=== PATIENT | female | born 1950 | race Caucasian/White ===

== ENCOUNTER 2023-11-23 22:30 | Emergency (ER) | payer MEDICARE, SELFPAY ==
--- NOTE | ~2023-11-23 | CT_ITS ---
EXAMINATION: CT cervical spine wo con DATE: 11/24/2023 00:02 INDICATION: Head injury. TECHNIQUE: Computed tomography (CT) of the cervical spine was performed without intravenous contrast. Automated exposure control and iterative reconstruction technique were employed. The dose-length pro duct was 484.08 mGy-cm. COMPARISON: None FINDINGS: There is 6 degrees dextrocurvature of cervical spine. Vertebral body heights are normal. Th ere is mildly decreased disc height at C6-C7. The following disc levels are specifically discussed: C2-C3: There is ankylosis of the uncovertebral joints without hypertrophy. There is ankylosis of the facet joints with mild left hypertrophy. There is mild left neural foraminal stenosis. There is no ce ntral canal stenosis. C3-C4: There is mild bilateral uncovertebral joint osteoarthritis. There is severe bilateral facet kamala int osteoarthritis. There is mild bilateral neural foraminal stenosis. There is no central canal sten osis. C4-C5: There is mild right and moderate left uncovertebral joint osteoarthritis. There is severe bila teral facet joint osteoarthritis. There is mild left neural foraminal stenosis. There is no central c anal stenosis. C5-C6: There is no uncovertebral joint osteoarthritis. There is severe bilateral facet joint osteoart hritis. There is mild bilateral neural foraminal stenosis. There is no central canal stenosis. C6-C7: There is moderate bilateral uncovertebral joint osteoarthritis. There is severe bilateral face t joint osteoarthritis. There is no neural foraminal stenosis. There is mild central canal stenosis. C7-T1: There is no uncovertebral joint osteoarthritis. There is mild right and severe left facet join t osteoarthritis. There is mild left neural foraminal stenosis. There is no central canal stenosis. IMPRESSION: 1. No fracture. 2. Mild cervical spondylosis. Reviewed, dictated and finalized at location E.
--- NOTE | ~2023-11-23 | CT_ITS ---
EXAMINATION: CT brain wo con DATE: 11/24/2023 00:00 INDICATION: Head injury. TECHNIQUE: Computed tomography (CT) of the head was performed without intravenous contrast. The mA wa s adjusted according to patient size. Iterative reconstruction technique was employed. The dose-lengt h product was 605.33 mGy-cm. COMPARISON: None FINDINGS: There is no intracranial hemorrhage, acute infarction, or abnormal intracranial mass lesion . The ventricles are normal in size. There are likely changes of ocular lens replacement surgeries. T here is mild mucosal thickening in the paranasal sinuses. The mastoid air cells are normal. IMPRESSION: 1. Normal brain. Reviewed, dictated and finalized at location E. IMPRESSION: 1. Normal brain.
[2023-11-23 22:31] VITALS: BP 183/103; PULSE 69; RESP 18; TEMP 36.6; O2SAT 99
--- NOTE | 2023-11-23 23:23 | ED.FALL ---
HPI - Fall General Chief Complaint: Fall Stated Complaint: fall, head trauma Time Seen by Provider: 11/23/23 23:04 Source: patient Mode of arrival: ambulatory Limitations: no limitations History of Present Illness HPI Narrative: Patient is a 73-year-old female who presents the ED with report of a fall with head injury. Patient reports she went to sit down on a couch and tripped and fell, falling backwards and hitting her head against a door. Denied LOC. She did sustain a contusion to her left posterior scalp. C/o left sided headache. She began having some nausea, which prompted her presentation. Denies vomiting. Denies dizziness, lightheadedness, vision changes. Denies neck or back pain. She is not on any blood thinners. Related Data Allergies Allergy/AdvReac Type Severity Reaction Status Date / Time Penicillins Allergy Unknown Verified 11/23/23 22:37 Review of Systems Review of Systems: CONSTITUTIONAL: Denies fever, chills, or sweats. CARDIOVASCULAR: Denies chest pain. RESPIRATORY: Denies dyspnea. GASTROINTESTINAL: See HPI. MUSCULOSKELETAL: Denies back pain, extremity pain, myalgia. NEUROLOGIC: See HPI. All systems reviewed & are unremarkable except as noted in HPI and below Exam Narrative: GENERAL: Well appearing, obese with BMI of 34.9, non-toxic, in no acute distress. HEAD: Normocephalic, contusion to left posterior scalp, mildly tender. No wounds or lacerations. EYES: PERRL/EOMI, conjunctiva clear. No nystagmus or pain with EOM. No raccoon eyes. ENT: TMs clear bilaterally. No hemotympanum. No Wayne sign. NECK: No midline spinal tenderness RESPIRATORY: Airway patent, respirations nonlabored. Clear to auscultation bilaterally, no rales, rhonchi, wheezing. CARDIOVASCULAR: Regular rate and rhythm without murmurs, rubs, or gallops. MUSCULOSKELETAL: Moves all extremities. No gross deformities. No midline thoracic or lumbar spinal tenderness. SKIN: Warm, dry, normal color. NEURO: A&O X3. Speech clear. Cranial nerves II-XII grossly intact. Steady gait. No ataxic movements. No focal deficits. PSYCHIATRIC: Appropriate mood and affect. Normal interaction. Course Vital Signs Vital signs: Vital Signs Temperature 97.9 F 11/23/23 22:31 Pulse Rate 69 11/23/23 22:31 Respiratory Rate 18 11/23/23 22:31 Blood Pressure 183/103 H 11/23/23 22:31 Pulse Oximetry 99 11/23/23 22:31 Oxygen Delivery Room Air 11/23/23 22:31 Temperature 97.9 F 11/23/23 22:31 Pulse Rate 78 11/24/23 00:55 Respiratory Rate 16 11/24/23 00:55 Blood Pressure 176/85 H 11/24/23 00:55 Pulse Oximetry 98 11/24/23 00:55 Oxygen Delivery Room Air 11/23/23 22:31 MDM - Fall MDM Narrative Medical decision making narrative: Patient presented to ED status post ground level fall, head injury, no LOC. No blood thinners. Vital stable. Patient neurologically intact. No other injuries or areas of pain. Patient did not want anything for pain or nausea in the ED. CT brain and cervical spine obtained and negative for acute traumatic findings. Patient has remained stable throughout ED stay. Remains neurologically intact. Will be discharged. Discussed return precautions. She is in agreement with plan. Discharged in stable condition. Medical Records Attestation: I reviewed the patient's medical records. Imaging Data Attestation: I personally reviewed and interpreted this imaging study as follows: Radiologist's impression: ITS Impressions Head CT 11/24/23 00:02 IMPRESSION: 1. Normal brain. Cervical Spine CT 11/24/23 00:04 IMPRESSION: 1. No fracture. 2. Mild cervical spondylosis. Discharge Plan Discharge Clinical Impression: Nausea Closed head injury Qualifiers: Encounter type: initial encounter Qualified Code(s): S09.90XA - Unspecified injury of head, initial encounter Patient Disposition: Home, Self-Care Condition: Stable Instructions: Antibiotic Form, Concussion (ED), Head Injury (ED) Additional Instructions: Your imaging here was reassuring. Recommend Tylenol as needed for further pain. Recommend plenty of rest. Stay well hydrated. Zofran as needed for further nausea. Follow-up with your primary care doctor for further evaluation if needed. Return to the ED if you experience recurrent injury, worsening or severe pain, severe dizziness, passing out, unable to keep down food or drink, vision changes, numbness or weakness, or any other symptoms of concern. Prescriptions: New ondansetron 4 mg tablet,disintegrating 4 mg PO Q8H PRN (Reason: nausea and vomiting) Qty: 15 0RF Follow-up/Referrals: UNKNOWN,DOCTOR [Primary Care Provider] - Time of Disposition: 00:34
[2023-11-24 00:55] VITALS: BP 176/85; PULSE 78; RESP 16; O2SAT 98
== END 2023-11-24 00:56 | disposition home or self-care (01) ==
PROVIDERS: Emergency Provider Physician Assistant
DX: S00.03XA Contusion of scalp, initial encounter (principal); R11.0 Nausea; E66.9 Obesity, unspecified; Z68.34 Body mass index [BMI] 34.0-34.9, adult; M47.812 Spondylosis without myelopathy or radiculopathy, cervical region; W01.198A Fall on same level from slipping, tripping and stumbling with subsequent striking against other object, initial encounter
CPT/HCPCS: 70450; 72125; 99284

== ENCOUNTER 2024-11-08 17:45 | Inpatient (IN) | payer MEDICARE, SELFPAY ==
[2024-11-08] VITALS (11 sets, daily range): BP systolic 122–148; BP diastolic 71–98; PULSE 82–93; RESP 17–20; TEMP 36.8–36.9; O2SAT 93–99
--- NOTE | ~2024-11-08 | XR_ITS ---
XR abdomen gastric tube insert Ordering provider: Mary Beth Pickering MD History: . NG placement . Comparison: None. FINDINGS/impression: BOWEL: Nasogastric tube seen with the tip in the body of the stomach. Nonobstructive bowel gas patter n. Reviewed, dictated and finalized at location A.
--- NOTE | ~2024-11-08 | CT_ITS ---
EXAMINATION: CT abdomen pelvis w con DATE: 11/08/2024 21:51 INDICATION: L flank/back pain LLQ abd pain TECHNIQUE: Computed tomography (CT) of the abdomen and pelvis was performed with 100 mL Omnipaque-350 intravenous contrast. Automated exposure control and iterative reconstruction technique were employe d. The dose-length product was 1187.04 mGy-cm. COMPARISON: None. FINDINGS: Lower thorax: Mitral annulus calcification Liver: Normal. Biliary/Gallbladder: Gallbladder is absent. Mild intra and extrahepatic bile duct dilation, likely se condary to cholecystectomy Pancreas: No mass or duct dilation. Spleen: Normal. Adrenals:No mass. Kidneys: No obstructing stone. Mild right pelviectasis. Subtle patchy hypoenhancement in the anterior inferior portion of the right lower pole with mild adjacent stranding. 5 mm right midpole AML. Multi ple subcentimeter left renal hypodensities, too small to characterize but most likely represent cysts . Bilateral nonobstructing punctate lower pole calculi. GI tract: Uncomplicated duodenal diverticulum. Multiple loops of dilated small bowel in the mid and l ower abdomen, transition point in a small bowel containing left lateral abdominal wall hernia. No bow el wall thickening, inflammatory change, interloop fluid, or pneumatosis. Appendix not confidently vi sualized Diverticulosis without diverticulitis. Mesentery/Peritoneum: No ascites, mass, or free air. Retroperitoneum: No mass. Atherosclerotic calcifications of intra-abdominal arterial vessels. Pelvis: Gas in the urinary bladder lumen, without wall thickening or inflammatory change. Normal uter us and bilateral ovaries. Soft Tissues: Fat and small bowel containing left lower lateral abdominal wall hernia, with mild infl ammatory change and fluid. The herniated bowel is narrowed upon entering and exiting the hernia. Mild mucosal hyperemia/thickening at the hernia entrance. Bones: No acute osseous finding. IMPRESSION: Small bowel obstruction secondary to herniation of small bowel into a left spigelian hernia, with pos sible strangulation. Focal area of hypoenhancement in the right lower pole with mild pelviectasis indication inflammatory change, consider ascending infection with pyelonephritis. Gas within the urinary bladder, correlate with any history of recent instrumentation and urinalysis. Reviewed, dictated and finalized at location K. IMPRESSION: Small bowel obstruction secondary to herniation of small bowel into a left spig sary hernia, with possible strangulation. Focal area of hypoenhancement in the right lower pole with mild pelviectasis in dication inflammatory change, consider ascending infection with pyelonephritis. Gas within the urinary bladder, correlate with any history of recent instrument ation and urinalysis.
--- OUTSIDE RECORDS SUMMARY | 2024-11-08 17:47 | XMS_ITS | Referral Summary ---
Author Organization [facility] Address [address] [place] [address] Care Team Providers Care Curbing Stonecutter Name Role Phone Meliton Lincoln MD Primary Care Provider [phone] Allergies Active Allergy Reactions Criticality Noted Date Comments Penicillin G Rash Medium 06/03/2018 Patient to receive cefazolin prior to procedure on 08/07/23 Medications ALPRAZolam (XANAX) 0.5 mg tablet Take 1 tablet (0.5 mg total) by mouth nightly as needed for anxiety Active esomeprazole DR (NexIUM) 40 mg capsule Take 1 capsule (40 mg total) by mouth daily Active celecoxib (CeleBREX) 200 mg capsuleIndicati ons:Start in 48 hours Take 1 capsule (200 mg total) by mouth daily Active buPROPion XL (WELLBUTRIN XL) 150 mg 24 hr tablet Take 1 tablet (150 mg total) by mouth daily Active olmesartan (BENICAR) 20 mg tablet Take 1 tablet (20 mg total) by mouth daily Active semaglutide (OZEMPIC) 2 mg/dose (8 mg/3 mL) pen injector injectionIndica tions:weight loss Inject 2 mg under the skin once a week On Fridays Active HYDROcodone-sal taminophen (NORCO) 5-325 mg per tabletIndicatio ns:Pain Take 1-2 tablets by mouth every 4 (four) hours as needed for pain for up to 30 doses 25 tablet Active Additional Information Patient not taking.Reported on 11/14/2023 Active Problems Problem Noted Date Diagnosed Date BHAVYA (obstructive sleep apnea) 02/19/2024 RLS (restless legs syndrome) 02/19/2024 Insomnia 02/19/2024 Rectoceles 07/09/2023 Incomplete uterovaginal prolapse 07/09/2023 Stress incontinence, female 07/09/2023 Calculus of kidney 09/16/2020 Social History Tobacco Use Types Packs/Day Years Used Date Smoking Tobacco: Never Smokeless Tobacco: Never Tobacco Cessation:Counseling Given: Not Answered AUDIT-C Answer Date Recorded Q1: How often do you have a drink containing alc ohol? Monthly or less 08/07/2023 Q2: How many drinks containi ng alcohol do you have on a typical day when you are drinking? 1 or 2 08/07/2023 Q3: How often do you have si x or more drinks on one occasion? Never 08/07/2023 Personal Safety Answer Date Recorded Have you ever been in or are you currently in a harmful physical or emotional relationship or is someone making you feel afraid or unsafe? 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 Gender Identity Not on file Sexual Orientation Not on file Last Filed Vital Signs Vital Sign Reading Time Taken Comments Blood Pressure 128/79 02/19/2024 10:10 AM CDT Pulse 71 02/19/2024 10:10 AM CDT Temperature 36.6 C (97.8 F) 02/19/2024 10:10 AM CDT Respiratory Rate 21 08/07/2023 2:40 PM BLUE CRABBER Oxygen Saturation 95% 02/19/2024 10:10 AM CDT Inhaled Oxygen Concentration - - Weight 100 kg (220 lb 8 oz) 02/19/2024 10:10 AM CDT Height 162.6 cm (5' 4 ) 02/19/2024 10:10 AM CDT Body Mass Index 37.85 02/19/2024 10:10 AM CDT Plan of Treatment Not on file Insurance [employer] MEDICARE [facility] MEDICARE Address: [address] [address] [place] [address] [facility] MED[facility] Address: [address] [place] [address] Care Teams Curbing Stonecutter Relationship Specialty Start Date End Date Meliton Lincoln MD [facility] [place] [address] PCP - General Internal Medicine 08/23/23
--- OUTSIDE RECORDS SUMMARY | 2024-11-08 17:47 | XMS_ITS | Clinical Summary ---
Author Organization [facility] Address [address] [place] [address] Care Team Providers Care Tube Splicer Name Role Phone Meliton Lincoln MD Primary Care Provider [phone] Allergies Active Allergy Reactions Criticality Noted Date [...] incontinence, female 07/09/2023 Calculus of kidney 09/16/2020 Surgical History Surgery Date Site/Laterality Comments CHOLECYSTECTOMY REPLACEMENT TOTAL KNEE BILATERAL Bilatera l COSMETIC SURGERY Bilateral brachialplasty CATARACT EXTRACTION W/ INTRAOCULAR LENS IMPLANT Bilateral Medical History Medical History Date Comments Hypertension Depression Sleep apnea Anxiety GERD (gastroesophageal reflux disease) Obesity BMI 34 Osteoarthritis Nephrolithiasis Skin cancer Social History Tobacco Use Types Packs/Day Years [...] on file 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 Gender Identity Not on file Sexual Orientation Not on file Obstetrics History Last Filed Vital Signs Vital Sign Reading Time Taken Comments Blood Pressure 128/79 02/19/2024 10:10 AM CDT Pulse 71 02/19/2024 10:10 AM CDT Temperature 36.6 C (97.8 F) 02/19/2024 10:10 AM CDT Respiratory Rate 21 08/07/2023 2:40 PM FINANCIAL PLANNING ADVISER Oxygen Saturation 95% 02/19/2024 10:10 AM CDT Inhaled Oxygen Concentration - - Weight 100 kg (220 lb 8 oz) 02/19/2024 10:10 AM CDT Height 162.6 cm (5' 4 ) 02/19/2024 10:10 AM CDT Body Mass Index 37.85 02/19/2024 10:10 AM CDT Plan of Treatment Health Maintenance Due Date Last Done Comments Colon Cancer Screening-Colonoscopy 1950 Depression Screening 1952 Hepatitis C Screening 1950 Osteoporosis Screening-Bone Density Scan 1952 DTaP/Tdap/Td Vaccine (1 - Tdap) 1963 Hepatitis B Screening 1970 Zoster Vaccine (1 of 2) 2002 Pneumococcal vaccine 65+ (2 of 2 - PCV) 05/31/2006 05/31/2005 Well Visit 65+ 2017 Breast Cancer Screening-Mammogram 02/01/2024 023, 01/31/2023 Covid-19 Vaccine (5 - 2023-2 5 season) 2024 07/15/2022, 07/22/2021, 11/09/2020, Additional history exists Influenza Vaccine (#1) 2024 07/15/2022, 2013 Fall Risk Assessment 08/07/2024 08/07/2023 Insurance [facility] MEDICARE UHC MEDICARE ADVANTAGE AETNA MEDICARE [facility] MEDIC[facility] Address: [address] [place] [address] Care Teams Tube Splicer Relationship Specialty Start Date End Date Meliton Lincoln MD [address] [place] [address] PCP - General Internal Medicine 08/23/23
[2024-11-08 20:23] LABS: Basophils Percent Auto 0.4 % (0.2-1.2); Eosinophils Absolute Auto 0.1 K/mm3 (0-0.3); Eosinophils Percent Auto 0.6 % (0-4.4); Hematocrit 44.4 % (37.0-47.0); Hemoglobin 14.2 g/dL (12.0-15.0); Immature Granulocyte Absolute 0.02 K/mm3 (0.00-0.031); Immature Granulocyte Percent A 0.2 % (0-0.5); Lymphocytes Absolute Auto 1.72 K/mm3 (0.9-3.2); Lymphocytes Percent Auto 18.6 % (18.3-44.2); Mean Corpuscular Hemoglobin 30.3 pg (26-34); Mean Corpuscular Volume 94.9 fl (80-100); Mean Platelet Volume 11.8 fl (7.4-10.4); Monocytes Absolute Auto 0.9 K/mm3 (0.1-0.6); Monocytes Percent Auto 10.2 % (2.6-8.5); Neutrophils Absolute Auto 6.5 K/mm3 (1.3-6.7); Platelet Count Result 207 k/mm3 (150-375); Red Blood Count 4.68 M/mm3 (4.2-5.4); Red Cell Distribution Width 13.1 % (11.5-14.5); White Blood Count 9.3 K/mm3 (4.5-10.0)
[2024-11-08 20:32] LABS: Alanine Aminotransferase 23 U/L (6-35); Albumin Level 4.5 g/dL (3.5-5.1); Alkaline Phosphatase 131 U/L (38-126); Anion Gap 11 mmol/L (4-12); Aspartate Amino Transferase 32 U/L (14-36); Bilirubin,Total 1.1 mg/dL (0.2-1.3); Blood Urea Nitrogen 24 mg/dL (7-17); Calcium 9.6 mg/dL (8.4-10.2); Carbon Dioxide 27 mmol/L (22-30); Chloride 102 mmol/L (98-107); Estimated CRCL calculation 54 ml/min; Estimated Glomerular Filt Rate > 60; Glucose 112 mg/dL (65-110); Lipase 40 U/L (23-300); Potassium 3.9 mmol/L (3.4-5.0); Sodium 140 mmol/L (137-145)
[2024-11-08 20:36] LABS: Add Urine Microscopic? YES; Appearance Urine Cloudy (Clear); Bacteria Urine 4+ /hpf; Bilirubin Urine Negative (Negative); Blood Urine Negative (Negative); Color Urine Dark Yellow (Yellow); Glucose Urine UA Negative (Negative); Ketones Urine Trace mg/dL (Negative); Leukocyte Esterase Ur 2+ LEU/UL (Negative); Need Manual Microscopic Reviewed; Nitrate Urine Negative (Negative); Protein Urine 1+ mg/dL (Negative); RBC Urine 0-2 /hpf (0-2); Specific Grav Ur 1.026 (1.001-1.035); Squamous Epithelial Cell Urine Moderate /hpf (Few); WBC Urine 51-100 /hpf (0-3)
--- NOTE | 2024-11-08 21:13 | ED.ABDPAIN ---
HPI - Abdominal Pain General Chief Complaint: Abdominal Pain Stated Complaint: ABD PAIN HX KIDNEY STONES Time Seen by Provider: 11/08/24 20:23 Source: patient and family () Mode of arrival: ambulatory Limitations: no limitations History of Present Illness HPI narrative: Patient presents with left sided flank/abdominal pain x1 week. She is concerned for a kidney stone as she was told 2 years ago that she had an 8mm stone. No hematuria but has had orange urine. Pain had been intermittent but is constant now. Prior surgery with urology Dr Epps in [place] for stent versus drain and then more recently urology Dr Parson (at [facility]) performed a lift for a possible prolapse, patient doesn't know the details. She notes that she had follow up with him in the past year. LBM 1 day ago, no constipation, diarrhea, or blood. Denies passing flatus. Not on anticoagulation. Notes that she doesn't actually have bowel movements but instead regularly performs colonics to get stool out. Took Aleve today. thinks her symptoms are due to her poor nutrition and drinking soda in the morning. She doesn't drink water. She is also on Ozempic, no dose change but did restart this medication Sunday. Nauseated. Had been vomiting yesterday into the coffee can they use for vomiting (?). She had strong smelling urine a few weeks ago and was on 14d of antibiotics. Flank pain is also in back, no paresthesias or saddle anesthesia. Not sexually active. Related Data Home Medications ?Medication ?Instructions ?Recorded ?Confirmed ?Last Taken ?Type alprazolam 0.5 mg tablet 0.5 mg PO BID PRN anxiety 11/08/24 11/09/24 Unknown History atorvastatin 10 mg tablet 10 mg PO DAILY 11/08/24 11/09/24 Unknown History bupropion HCl 150 mg 24 hr tablet, 150 mg PO DAILY 11/08/24 11/09/24 Unknown History extended release celecoxib 200 mg capsule 200 mg PO DAILY 11/08/24 11/09/24 Unknown History esomeprazole magnesium 40 mg 40 mg PO DAILY 11/08/24 11/09/24 Unknown History capsule,delayed release olmesartan 20 mg tablet 20 mg PO DAILY 11/08/24 11/09/24 Unknown History Allergies Allergy/AdvReac Type Severity Reaction Status Date / Time Penicillins Allergy Unknown Verified 11/10/24 12:06 [facility] Past Medical History Medical History (Updated 11/09/24 @ 10:24 by Jose Gruber MD) Hypertension History of renal stone Surgical History Surgical History History of bilateral knee replacement History of colonoscopy last performed approximately 2001 History of genitourinary surgical procedure lift with Dr Parson Social History Social History Smoking status: Never smoker Alcohol intake: current Drinks per week: 1 Substance use: current Other substance usage details: marijuana gummies Do You Feel Safe in your Home?: Yes Lack of Transportation: No Lack of Food: Never True Current Housing: I Have Housing Concerned About Future Housing: No Difficulty Paying Gas/Electric Bills: No Difficulty Paying for Meds: No Currently Unemployed: No Education: High School Diploma/GED Difficulty w/ Childcare or Family Care: No Spiritual care concerns: No Exam Narrative: GENERAL: Well-appearing, well-nourished, in moderate acute distress. HEAD: Normocephalic, atraumatic. EYES: Non injected, non icteric ENT: Nares clear, no rhinorrhea or epistaxis. NECK: Supple. CHEST: Speaking in full sentences. No respiratory distress. HEART: Regular rate and rhythm. . ABDOMEN: Soft, mildly distended. Generalized TTP throughout. Not peritoneal. EXTREMITIES: Normal range of motion. No lower extremity edema. SKIN: Warm, dry, no rash. NEURO: No focal deficits. Alert and oriented x3. Answers questions appropriately. Able to be her own health historian. PSYCH: Congruent mood and affect. Course Vital Signs Vital signs: Vital Signs Temperature 98.3 F 11/08/24 17:54 Pulse Rate 93 11/08/24 17:54 Respiratory Rate 20 11/08/24 17:54 Blood Pressure 148/98 H 11/08/24 17:54 Pulse Oximetry 99 11/08/24 17:54 Oxygen Delivery Room Air 11/08/24 17:54 Temperature 96.8 F L 11/10/24 14:53 Pulse Rate 80 11/10/24 14:53 Respiratory Rate 16 11/10/24 14:53 Blood Pressure 153/72 H 11/10/24 14:53 Pulse Oximetry 90 11/10/24 14:53 Oxygen Delivery Room Air 11/10/24 08:51 MDM - Abdominal Pain MDM Narrative Medical decision making narrative: Patient presents with left sided flank and abdominal pain of 1 weeks' duration associated with nausea and vomiting yesterday. In the emergency department she is afebrile with acceptable vital signs although notable for hypertension. Urine is concerning for urinary tract infection. Given the associated flank pain and her symptoms, also consideration pyelonephritis. No prior urine culture to guide antibiotic therapy. Because of the moderate squamous cells, urinalysis did not automatically reflex to the urine culture however there is pyuria and leukocyte esterase and for this reason I did order a urine culture and call the lab to make sure they would process that as well. Ceftriaxone ordered. For some reason unable to see the differential on the CBC initially however no leukocytosis, anemia, or thrombocytopenia. CT as below. Discussed with on-call general surgeon Dr Gruber at approximately 23:00. He notes that the questionable spigalean hernia might actually reflect port-side hernia after procedure performed by Dr Parson. Recommends placing NG tube and starting Zosyn and admitting patient. Discussed patient with tax services professional hospitalist. Differential Diagnosis Differential diagnosis: Likely abdominal pain, calculus of kidney, constipation, diverticulitis, pancreatitis, small bowel obstruction and other (UTI, pyelonephritis; musculoskeletal; colitis) Lab Data Attestation: I reviewed the patient's lab results. 11/10/24 05:36 11/10/24 05:36 Labs: Lab Results 11/08/24 11/08/24 11/08/24 Range/Units 13:17 20:11 20:15 WBC 9.3 (4.5-10.0) K/mm3 RBC 4.68 (4.2-5.4) M/mm3 Hgb 14.2 (12.0-15.0) g/dL Hct 44.4 (37.0-47.0) % MCV 94.9 (80-100) fl MCH 30.3 (26-34) pg MCHC 32.0 (32-36) g/dl RDW 13.1 (11.5-14.5) % Plt Count 207 (150-375) k/mm3 MPV 11.8 H (7.4-10.4) fl Immature Gran % (Auto) 0.2 (0-0.5) % Neut % (Auto) 70.0 (45.5-73.1) % Lymph % (Auto) 18.6 (18.3-44.2) % [place] % (Auto) 10.2 H (2.6-8.5) % Eos % (Auto) 0.6 (0-4.4) % Baso % (Auto) 0.4 (0.2-1.2) % Lymph # (Auto) 1.72 (0.9-3.2) K/mm3 [place] # (Auto) 0.9 H (0.1-0.6) K/mm3 Eos # (Auto) 0.1 (0-0.3) K/mm3 Baso # (Auto) 0.0 (0.0-0.1) K/mm3 Abs Immat Gran (auto) 0.02 (0.00-0.031) K/mm3 Absolute Neuts (auto) 6.5 (1.3-6.7) K/mm3 Absolute Nucleated RBC 0.000 (0.0-0.012) K/mm3 Nucleated RBC % 0.0 (0.0-0.2) % Sodium 140 (137-145) mmol/L Potassium 3.9 (3.4-5.0) mmol/L Chloride 102 (98-107) mmol/L Carbon Dioxide 27 (22-30) mmol/L Anion Gap 11 (4-12) mmol/L BUN 24 H (7-17) mg/dL Creatinine 0.90 (0.7-1.0) mg/dL Estim Creat Clear Calc 54 ml/min Estimated GFR > 60 (59 - ) Glucose 112 H (65-110) mg/dL Lactic Acid (0.7-2.0) mmol/L Calcium 9.6 (8.4-10.2) mg/dL Magnesium 1.8 (1.6-2.3) mg/dL Total Bilirubin 1.1 (0.2-1.3) mg/dL AST 32 (14-36) U/L ALT 23 (6-35) U/L Alkaline Phosphatase 131 H (38-126) U/L Total Protein 8.0 (6.3-8.2) g/dL Albumin 4.5 (3.5-5.1) g/dL Lipase 40 (23-300) U/L Urine Color Dark yellow (Yellow) Urine Appearance Cloudy H (Clear) Urine pH 5.0 (5.0-9.0) Ur Specific [place] 1.026 (1.001-1.035) Urine Protein 1+ H (Negative) mg/dL Urine Glucose (UA) Negative (Negative) mg/dL Urine Ketones Trace H (Negative) mg/dL Ur Blood (Man) Negative (Negative) Urine Nitrate Negative (Negative) Urine Bilirubin Negative (Negative) Urine Urobilinogen 1.0 (<2.0) mg/dL Add Ur Microanalysis Reviewed Leukocyte Esterase Rfl 2+ H (Negative) MARIELLA/UL Urine RBC 0-2 (0-2) /hpf Urine WBC 51-100 H (0-3) /hpf Ur Squamous Epith Cells Moderate (Few) /hpf Urine Bacteria 4+ H /hpf Urine Casts 6-10 11/08/24 11/09/24 Range/Units 22:42 08:17 WBC 6.9 (4.5-10.0) K/mm3 RBC 4.25 (4.2-5.4) M/mm3 Hgb 12.8 (12.0-15.0) g/dL Hct 40.8 (37.0-47.0) % MCV 96.0 (80-100) fl MCH 30.1 (26-34) pg MCHC 31.4 L (32-36) g/dl RDW 13.0 (11.5-14.5) % Plt Count 180 (150-375) k/mm3 MPV 11.4 H (7.4-10.4) fl Immature Gran % (Auto) (0-0.5) % Neut % (Auto) (45.5-73.1) % Lymph % (Auto) (18.3-44.2) % [place] % (Auto) (2.6-8.5) % Eos % (Auto) (0-4.4) % Baso % (Auto) (0.2-1.2) % Lymph # (Auto) (0.9-3.2) K/mm3 [place] # (Auto) (0.1-0.6) K/mm3 Eos # (Auto) (0-0.3) K/mm3 Baso # (Auto) (0.0-0.1) K/mm3 Abs Immat Gran (auto) (0.00-0.031) K/mm3 Absolute Neuts (auto) (1.3-6.7) K/mm3 Absolute Nucleated RBC (0.0-0.012) K/mm3 Nucleated RBC % (0.0-0.2) % Sodium 139 (137-145) mmol/L Potassium 3.8 (3.4-5.0) mmol/L Chloride 104 (98-107) mmol/L Carbon Dioxide 24 (22-30) mmol/L Anion Gap 11 (4-12) mmol/L BUN 21 H (7-17) mg/dL Creatinine 0.76 (0.7-1.0) mg/dL Estim Creat Clear Calc 63 ml/min Estimated GFR > 60 (59 - ) Glucose 132 H (65-110) mg/dL Lactic Acid 1.0 (0.7-2.0) mmol/L Calcium 8.8 (8.4-10.2) mg/dL Magnesium (1.6-2.3) mg/dL Total Bilirubin 2.9 H (0.2-1.3) mg/dL AST 416 H (14-36) U/L ALT 219 H (6-35) U/L Alkaline Phosphatase 262 H (38-126) U/L Total Protein 7.0 (6.3-8.2) g/dL Albumin 3.9 (3.5-5.1) g/dL Lipase (23-300) U/L Urine Color (Yellow) Urine Appearance (Clear) Urine pH (5.0-9.0) Ur Specific [place] (1.001-1.035) Urine Protein (Negative) mg/dL Urine Glucose (UA) (Negative) mg/dL Urine Ketones (Negative) mg/dL Ur Blood (Man) (Negative) Urine Nitrate (Negative) Urine Bilirubin (Negative) Urine Urobilinogen (<2.0) mg/dL Add Ur Microanalysis Leukocyte Esterase Rfl (Negative) MARIELLA/UL Urine RBC (0-2) /hpf Urine WBC (0-3) /hpf Ur Squamous Epith Cells (Few) /hpf Urine Bacteria /hpf Urine Casts Imaging Data Attestation: I personally reviewed and interpreted this imaging study as follows: My impression: KUB: NG tube port appears appropriately placed on my independent interpretation. Study less than ideal due to patient wearing underwire bra and jewelry. Radiologist's impression: ITS Impressions Abdomen/Pelvis CT 11/08/24 22:01 IMPRESSION: Small bowel obstruction secondary to herniation of small bowel into a left spigelian hernia, with possible strangulation. Focal area of hypoenhancement in the right lower pole with mild pelviectasis indication inflammatory change, consider ascending infection with pyelonephritis. Gas within the urinary bladder, correlate with any history of recent instrumentation and urinalysis. Discharge Plan Discharge Clinical Impression: UTI (urinary tract infection), Small bowel obstruction with strangulation or infarction, Pyelonephritis Patient Disposition: Still a Patient Condition: Stable
[2024-11-08] MEDS: ONDANSETRON INJ 4 MG/2 ML VIAL IV PUSH (21:59)
[2024-11-08] MEDS: HYDROmorphone HCL INJ (*CRX) 1 MG/ML SYR 0.5 MG IV PUSH (22:00)
[2024-11-08 22:39] LABS: Magnesium 1.8 mg/dL (1.6-2.3)
--- NOTE | 2024-11-08 23:09 | PC.NURSE ---
technical report writer and this RN attempted to obtain blood cultures. technical report writer attempted twice, unsuccessful. This RN attempted twice, unsucessful. ED blood bank specialist notified and phlebotomy called.
--- NOTE | 2024-11-08 23:10 | PC.NURSE ---
x2 unsuccessful attempts to draw patients blood cultures. RN Cat aware and at bedside to attempt to draw cultures. x2 attempts by RN unsuccessful. GEORGE Paulino aware, called phlebotomy for patient's draw.
[2024-11-09] MEDS: ONDANSETRON INJ 4 MG/2 ML VIAL IV PUSH ×5 (00:16→19:44)
[2024-11-09] MEDS: HYDROmorphone HCL INJ (*CRX) 1 MG/ML SYR 0.5 MG IV PUSH ×3 (00:17→08:10)
[2024-11-09 00:38] VITALS: BMI 34.4
[2024-11-09 00:59] VITALS: BP 124/57; PULSE 89; RESP 16; TEMP 35.6; O2SAT 92
--- NOTE | 2024-11-09 01:09 | ADMGEN ---
This patient, Dottie Damon, was admitted to 3 Med Surg Room 303-01. Patient/family oriented to hospital policies and general routines including ID bracelet, bed and alarms, visiting hours, pain management, procedures, bathroom and other care routines, personal items, smoking policy, room service/diet, and visiting hours. Information on how to activate the Rapid Response Team has been discussed. Patient/Family are encouraged to report perceived risks to care and to ask questions if they do not understand what they are told or what they should do.
[2024-11-09] MEDS: LACTATED RINGERS 1,000 ML 125 ML IV CONT ×3 (01:49→19:44)
[2024-11-09] MEDS: PIPERACILLIN/TAZ 4.5G/NS 100ML 4.5 GM/100 ML BAG IVPB (01:49)
[2024-11-09 02:05] VITALS: PULSE 78; RESP 18; O2SAT 92
[2024-11-09 04:35] VITALS: BP 120/64; PULSE 78; RESP 18; TEMP 35.6; O2SAT 92
--- NOTE | 2024-11-09 06:23 | P.HP_ITS ---
H&P: HPI History of Present Illness Date/Time: 11/09/24 06:23 Chief Complaint: Abdominal pain Narrative: This is a pleasant 74-year-old female with a past medical history kidney stones, hypertension, dyslipidemia presents to [facility] ER with complaint of abdominal pain sudden onset within 1 day. Her significant other who she lives with is present and helps to provide history. The patient was convinced it was a kidney stone. The reports the patient has been eating red hot candy for the past month, 1 lb per week. The patient typically has 1 bowel movement every 2-3 days and does use water enemas to help her defecate. In the past 3-4 days she has only had 1 very hard and small bowel movement. She developed abdominal pain which was on the lower left quadrant and she vomited yellow vomitus at 1 point. She has had a laparoscopic cholecystectomy and a surgery for prolapsed bladder in the past. ER evaluation revealed abnormal UA although there were moderate squamous cells. She did receive ceftriaxone. CT abdomen pelvis with contrast revealed possible small bowel obstruction, possible herniation of a ventral hernia, focal area of hypoenhancement in the right lower pole with mild pelviectasis, gas in the urinary bladder. Dr. Gruber general surgeon was notified and he advised for bowel rest as well as placing an NG tube and starting Zosyn. Patient is unsure what allergy she has to penicillin, was willing to go forward with Zosyn, she tolerated it well. Review of Systems Review of Systems: All systems reviewed & are unremarkable except as noted in HPI and below (HPI) [facility] Past Medical History Medical History (Updated 11/08/24 @ 23:00 by Mary Beth Pickering MD) History of renal stone Surgical History Surgical History History of colonoscopy last performed approximately 2001 History of genitourinary surgical procedure lift with Dr Parson Social History Social History Smoking status: Never smoker Alcohol intake: current Drinks per week: 1 Substance use: current Other substance usage details: marijuana gummies Do You Feel Safe in your Home?: Yes Lack of Transportation: No Lack of Food: Never True Current Housing: I Have Housing Concerned About Future Housing: No Difficulty Paying Gas/Electric Bills: No Difficulty Paying for Meds: No Currently Unemployed: No Education: High School Diploma/GED Difficulty w/ Childcare or Family Care: No Spiritual care concerns: No Meds Home Medications and Allergies Home Medications ?Medication ?Instructions ?Recorded ?Confirmed ?Type ondansetron 4 mg disintegrating 4 mg PO Q8H PRN nausea and 11/24/23 11/08/24 Rx tablet vomiting #15 tabs alprazolam 0.5 mg tablet 0.5 mg PO BID PRN anxiety 11/08/24 11/09/24 History atorvastatin 10 mg tablet 10 mg PO DAILY 11/08/24 11/09/24 History bupropion HCl 150 mg 24 hr tablet, 150 mg PO DAILY 11/08/24 11/09/24 History extended release celecoxib 200 mg capsule 200 mg PO DAILY 11/08/24 11/09/24 History esomeprazole magnesium 40 mg 40 mg PO DAILY 11/08/24 11/09/24 History capsule,delayed release olmesartan 20 mg tablet 20 mg PO DAILY 11/08/24 11/09/24 History Allergies Allergy/AdvReac Type Severity Reaction Status Date / Time Penicillins Allergy Unknown Verified 11/08/24 17:46 Vital Signs Vital Signs - 24 hr 11/08/24 17:54 11/08/24 20:01 11/08/24 22:15 Temperature 98.3 F 98.4 F Pulse Rate 93 82 Respiratory Rate 20 18 Blood Pressure 148/98 H 146/84 H Pulse Oximetry 99 98 95 Oxygen Delivery Room Air 11/08/24 22:26 11/08/24 22:30 11/08/24 22:31 Temperature Pulse Rate 88 Respiratory Rate 17 Blood Pressure 146/79 H 122/71 Pulse Oximetry 94 93 97 Oxygen Delivery 11/08/24 22:45 11/08/24 23:00 11/08/24 23:26 Temperature Pulse Rate Respiratory Rate Blood Pressure Pulse Oximetry 95 94 96 Oxygen Delivery 11/08/24 23:30 11/08/24 23:47 11/09/24 00:59 Temperature 96.1 F L Pulse Rate 89 Respiratory Rate 16 Blood Pressure 124/57 L Pulse Oximetry 95 93 92 Oxygen Delivery 11/09/24 02:05 11/09/24 04:35 Temperature 96.1 F L Pulse Rate 78 78 Respiratory Rate 18 18 Blood Pressure 120/64 Pulse Oximetry 92 92 Oxygen Delivery Room Air Exam Const: General: comfortable and no acute distress Other: A&O x3 HENMT: Mouth: Yes moist mucous membranes Eyes: Pupils: Equal, round and reactive pupils present Neck: Neck: supple Resp: Effort & Inspection: normal respiratory effort Auscultation: clear to auscultation bilaterally Cardio: Rate: regular rate Rhythm: regular rhythm GI: GI Palp: Yes Soft to palpation, No Tenderness to palpation present (GI) and No Guarding due to palpation present (GI) Auscultation: normal bowel sounds Other: Mild distension : General: Yes bladder normal to palpation Other: No flank pain Neuro: Motor exam (neuro): 5/5 motor strength present throughout Sensory Exam: normal sensation Extrem: General: no edema H&P: Results Labs Labs: Short CBC 11/08/24 Range/Units 13:17 WBC 9.3 (4.5-10.0) K/mm3 Hgb 14.2 (12.0-15.0) g/dL Hct 44.4 (37.0-47.0) % Plt Count 207 (150-375) k/mm3 BMP 11/08/24 20:15 Sodium 140 Potassium 3.9 Chloride 102 Carbon Dioxide 27 BUN 24 H Creatinine 0.90 Glucose 112 H Calcium 9.6 Liver Function 11/08/24 Range/Units 20:15 Total Bilirubin 1.1 (0.2-1.3) mg/dL AST 32 (14-36) U/L ALT 23 (6-35) U/L Alkaline Phosphatase 131 H (38-126) U/L Albumin 4.5 (3.5-5.1) g/dL Urine 11/08/24 Range/Units 20:11 Urine Color Dark yellow (Yellow) Urine Appearance Cloudy H (Clear) Urine pH 5.0 (5.0-9.0) Ur Specific [place] 1.026 (1.001-1.035) Urine Protein 1+ H (Negative) mg/dL Urine Glucose (UA) Negative (Negative) mg/dL Assessment and Plan Assessment and plan (1) UTI (urinary tract infection): Code(s): N39.0 - Urinary tract infection, site not specified Status: Acute (2) Small bowel obstruction with strangulation or infarction: Status: Acute (3) Pyelonephritis: Code(s): N12 - Tubulo-interstitial nephritis, not specified as acute or chronic Status: Acute Plan This is a pleasant 74-year-old female with a past medical history kidney stones, hypertension, dyslipidemia presents to [facility] ER with complaint of abdominal pain sudden onset within 1 day. Her significant other who she lives with is present and helps to provide history. The patient was convinced it was a kidney stone. The reports the patient has been eating red hot candy for the past month, 1 lb per week. The patient typically has 1 bowel movement every 2-3 days and does use water enemas to help her defecate. In the past 3-4 days she has only had 1 very hard and small bowel movement. She developed abdominal pain which was on the lower left quadrant and she vomited yellow vomitus at 1 point. She has had a laparoscopic cholecystectomy and a surgery for prolapsed bladder in the past. ER evaluation revealed abnormal UA although there were moderate squamous cells. She did receive ceftriaxone. CT abdomen pelvis with contrast revealed possible small bowel obstruction, possible herniation of a ventral hernia, focal area of hypoenhancement in the right lower pole with mild pelviectasis, gas in the urinary bladder. Dr. Gruber general surgeon was notified and he advised for bowel rest as well as placing an NG tube and starting Zosyn. Patient is unsure what allergy she has to penicillin, was willing to go forward with Zosyn, she tolerated it well. ----- NG tube placed. Bowel rest. Dilaudid and Zosyn p.r.n.. Lactated Ringer's at 125 cc/hour. General surgery to see for official consultation. Abnormal urinalysis moderate squamous cells. Patient did report increased frequency over the past few days. No foul order, no dysuria. Follow-up urine culture. Continue Zosyn above. ----- NPO. Full code. Lactated Ringer's. SCDs. General surgery consultation.
--- NOTE | 2024-11-09 07:51 | PM.IMPN ---
Progress Note: A&P Assessment and Plan (1) Small bowel obstruction with strangulation or infarction: Status: Acute Assessment and Plan: - CT abdomen/pelvis: SBO secondary to herniation of small bowel into a left spigelian hernia, with possible strangulation - Blood cultures obtained on 11/09: pending - Protonix 40 mg IV daily - Gentle IV fluid resuscitation given the patient's NPO status - P.r.n. Anti emetics and analgesics - NG tube to low intermittent suction - Monitor I&Os, vital signs, neuro status and patient is a fall risk - Monitor serum electrolytes and CBC - Surgery consulted Plan for a robotic assisted laparoscopic incarcerated spigelian hernia repair with possible mesh placement, possible conversion to open repair tomorrow with Dr. Gruber (2) UTI (urinary tract infection): Code(s): N39.0 - Urinary tract infection, site not specified Status: Acute Assessment and Plan: - UA: cloudy appearance with 1+ protein, trace ketones, 2+ leukocytes, 51-100 WBC, and 4+ bacteria. Moderate squamous cells present so possible contamination however cocurrent pyelonephritis seen on imaging. - UC obtained on 11/09: pending - no previous micro to be reviewed - received Rocephin in the ED then started on zosyn for cocurrent SBO on 11/09 (3) Pyelonephritis: Code(s): N12 - Tubulo-interstitial nephritis, not specified as acute or chronic Status: Acute Assessment and Plan: CT abdomen/pelvis: Focal area of hypoenhancement in the right lower pole with mild pelviectasis indication inflammatory change, consider ascending infection with pyelonephritis. Gas within the urinary bladder, correlate with any history of recent instrumentation and urinalysis. See UTI #2. (4) Hypertension: Code(s): I10 - Essential (primary) hypertension Status: Acute Assessment and Plan: Chronic Holding olmesartan 20 mg daily for SBO Blood pressures remain stable, continue to monitor Time Spent With Patient Time with patient: 25 - 35 minutes Subjective Date/time seen: 11/09/24 07:51 Interval history: 74-year-old female with past medical history of hypertension, dyslipidemia and kidney stones presents to the hospital for abdominal pain. Patient is pleasant lying in bed. She continues to endorse intermittent nausea and continued abdominal pain. NG tube remains in place. She is not passing gas. Patient has no other complaints denying chest pain, palpitations, shortness a breath. Review of Systems Review of Systems: All systems reviewed & are unremarkable except as noted in HPI and below Exam Narrative: AF HR 78 RR 18 Spo2 92 BP 120/64 General: female in no acute respiratory distress who is nontoxic appearing, lying semi recumbent in bed. HEENT: Normocephalic. Atraumatic. Extraocular movement intact. Sclera clear and anicteric. No facial asymmetry. NG to low intermittent suction. Chest: Lungs are clear to auscultation bilaterally. CV: Heart was regular rate and rhythm. S1-S2. No murmurs, gallops, or rubs. Abd: Abdomen was soft. Tender to LLQ. Nonreducible hernia. Hypoactive bowel sounds. Ext: No clubbing, cyanosis, or edema. DP pulses bilaterally. Neuro: Patient is alert and oriented x4. Speech is clear. Objective Data Vital Signs Vital Signs: Vital Signs - 24 hr 11/08/24 17:54 11/08/24 20:01 11/08/24 22:15 Temperature 98.3 F 98.4 F Pulse Rate 93 82 Respiratory Rate 20 18 Blood Pressure 148/98 H 146/84 H Pulse Oximetry 99 98 95 Oxygen Delivery Room Air 11/08/24 22:26 11/08/24 22:30 11/08/24 22:31 Temperature Pulse Rate 88 Respiratory Rate 17 Blood Pressure 146/79 H 122/71 Pulse Oximetry 94 93 97 Oxygen Delivery 11/08/24 22:45 11/08/24 23:00 11/08/24 23:26 Temperature Pulse Rate Respiratory Rate Blood Pressure Pulse Oximetry 95 94 96 Oxygen Delivery 11/08/24 23:30 11/08/24 23:47 11/09/24 00:59 Temperature 96.1 F L Pulse Rate 89 Respiratory Rate 16 Blood Pressure 124/57 L Pulse Oximetry 95 93 92 Oxygen Delivery 11/09/24 02:05 11/09/24 04:35 Temperature 96.1 F L Pulse Rate 78 78 Respiratory Rate 18 18 Blood Pressure 120/64 Pulse Oximetry 92 92 Oxygen Delivery Room Air Intake/Output Intake/Output: Intake & Output 11/06/24 11/07/24 11/08/24 11/09/24 23:59 23:59 23:59 23:59 Intake Total 50 0 Balance 50 0 Meds/Results Medications: Active Medications Generic Name Dose Route Start Last Admin Trade Name Freq PRN Reason Stop Dose Admin Hydromorphone HCl 0.5 mg 11/08/24 23:12 11/09/24 04:22 Hydromorphone Hcl Inj (*Crx) 1 Mg/Ml Syr IV PUSH 0.5 mg Q4H PRN Administration Pain Rated 7-10 Lactated Ringer's 1,000 mls @ 125 mls/hr 11/08/24 23:15 11/09/24 01:49 Lr - Lactated Ringers Iv IV CONT 125 mls/hr .Q8H JAYME Administration Piperacillin/Tazobactam/Dextrose 3.375 gm in 50 mls @ 100 mls/hr 11/09/24 08:00 Zosyn 3.375 Gm/Ns 50 Ml IVPB Q6H JAYME Ondansetron HCl 4 mg 11/08/24 23:12 11/09/24 04:49 Ondansetron Inj 4 Mg/2 Ml Vial IV PUSH 4 mg Q4H PRN Administration Nausea Radiology Results: ITS Impressions Abdomen/Pelvis CT 11/08/24 22:01 IMPRESSION: Small bowel obstruction secondary to herniation of small bowel into a left spigelian hernia, with possible strangulation. Focal area of hypoenhancement in the right lower pole with mild pelviectasis indication inflammatory change, consider ascending infection with pyelonephritis. Gas within the urinary bladder, correlate with any history of recent instrumentation and urinalysis. Labs Labs: Laboratory Results - last 24 hr 11/08/24 11/08/24 11/08/24 13:17 20:11 20:15 WBC 9.3 RBC 4.68 Hgb 14.2 Hct 44.4 MCV 94.9 MCH 30.3 MCHC 32.0 RDW 13.1 Plt Count 207 MPV 11.8 H Immature Gran % (Auto) 0.2 Neut % (Auto) 70.0 Lymph % (Auto) 18.6 [place] % (Auto) 10.2 H Eos % (Auto) 0.6 Baso % (Auto) 0.4 Lymph # (Auto) 1.72 [place] # (Auto) 0.9 H Eos # (Auto) 0.1 Baso # (Auto) 0.0 Abs Immat Gran (auto) 0.02 Absolute Neuts (auto) 6.5 Absolute Nucleated RBC 0.000 Nucleated RBC % 0.0 Sodium 140 Potassium 3.9 Chloride 102 Carbon Dioxide 27 Anion Gap 11 BUN 24 H Creatinine 0.90 Estim Creat Clear Calc 54 Estimated GFR > 60 Glucose 112 H Lactic Acid Calcium 9.6 Magnesium 1.8 Total Bilirubin 1.1 AST 32 ALT 23 Alkaline Phosphatase 131 H Total Protein 8.0 Albumin 4.5 Lipase 40 Urine Color Dark yellow Urine Appearance Cloudy H Urine pH 5.0 Ur Specific [place] 1.026 Urine Protein 1+ H Urine Glucose (UA) Negative Urine Ketones Trace H Ur Blood (Man) Negative Urine Nitrate Negative Urine Bilirubin Negative Urine Urobilinogen 1.0 Add Ur Microanalysis Reviewed Leukocyte Esterase Rfl 2+ H Urine RBC 0-2 Urine WBC 51-100 H Ur Squamous Epith Cells Moderate Urine Bacteria 4+ H Urine Casts 6-10 11/08/24 22:42 WBC RBC Hgb Hct MCV MCH MCHC RDW Plt Count MPV Immature Gran % (Auto) Neut % (Auto) Lymph % (Auto) [place] % (Auto) Eos % (Auto) Baso % (Auto) Lymph # (Auto) [place] # (Auto) Eos # (Auto) Baso # (Auto) Abs Immat Gran (auto) Absolute Neuts (auto) Absolute Nucleated RBC Nucleated RBC % Sodium Potassium Chloride Carbon Dioxide Anion Gap BUN Creatinine Estim Creat Clear Calc Estimated GFR Glucose Lactic Acid 1.0 Calcium Magnesium Total Bilirubin AST ALT Alkaline Phosphatase Total Protein Albumin Lipase Urine Color Urine Appearance Urine pH Ur Specific [place] Urine Protein Urine Glucose (UA) Urine Ketones Ur Blood (Man) Urine Nitrate Urine Bilirubin Urine Urobilinogen Add Ur Microanalysis Leukocyte Esterase Rfl Urine RBC Urine WBC Ur Squamous Epith Cells Urine Bacteria Urine Casts Quality VTE Prophylaxis VTE prophylaxis: mechanical ordered
[2024-11-09] MEDS: PIPERACILLN/TAZ 3.375GM/NS50ML 3.375 GM/50 ML BAG IVPB ×3 (07:53→19:44)
[2024-11-09 08:22] LABS: Hematocrit 40.8 % (37.0-47.0); Hemoglobin 12.8 g/dL (12.0-15.0); Mean Corpuscular HGB Conc 31.4 g/dl (32-36); Mean Corpuscular Hemoglobin 30.1 pg (26-34); Mean Platelet Volume 11.4 fl (7.4-10.4); Platelet Count Result 180 k/mm3 (150-375); Red Blood Count 4.25 M/mm3 (4.2-5.4); White Blood Count 6.9 K/mm3 (4.5-10.0)
[2024-11-09 08:35] LABS: Alanine Aminotransferase 219 U/L (6-35); Albumin Level 3.9 g/dL (3.5-5.1); Alkaline Phosphatase 262 U/L (38-126); Anion Gap 11 mmol/L (4-12); Aspartate Amino Transferase 416 U/L (14-36); Bilirubin,Total 2.9 mg/dL (0.2-1.3); Blood Urea Nitrogen 21 mg/dL (7-17); Calcium 8.8 mg/dL (8.4-10.2); Carbon Dioxide 24 mmol/L (22-30); Chloride 104 mmol/L (98-107); Estimated CRCL calculation 63 ml/min; Estimated Glomerular Filt Rate > 60; Glucose 132 mg/dL (65-110); Potassium 3.8 mmol/L (3.4-5.0); Sodium 139 mmol/L (137-145)
--- NOTE | 2024-11-09 10:17 | P.CONS_ITS ---
Assessment and Plan Assessment and plan (1) SBO (small bowel obstruction): Code(s): K56.609 - Unspecified intestinal obstruction, unspecified as to partial versus complete obstruction Status: Acute Assessment and Plan: Patient appears to have a small-bowel obstruction secondary to incarcerated hernia. No evidence of strangulation at this time. White blood cell count is normal and she is not tachycardic no hypotension. She is tender in the area. Nasogastric tube is in place. IV antibiotics is being administered and IV fluids are hydrating her. Will check another lactic acid level today. Keep her nasogastric tube decompression today and NPO. Will hopefully get her on the schedule tomorrow for a robotic assisted laparoscopic incarcerated spigelian hernia repair with possible mesh placement, possible conversion to open repair. If she has any decompensation today then would proceed with a more urgent open repair today. (2) Spigelian hernia with bowel obstruction: Code(s): K43.6 - Other and unspecified ventral hernia with obstruction, without gangrene Status: Acute Assessment and Plan: As above. HPI Data of Consult Date/Time: 11/09/24 10:17 Requesting Physician: Heather Bell PA-C Primary Care Provider: [facility] MACHINE OPERATOR PHYSICIAN Consult Narrative Reason for consult: Small-bowel obstruction secondary to incarcerated left spigelian hernia Narrative: Dottie Damon is a 74 year old female who presents to the emergency room yesterday with several hour history of left flank pain. Has had history of very tract infections and kidney infections in the past and thought she had another kidney infection. She had episodes of nausea vomiting home. In the emergency room she had a normal white blood cell count. Hemodynamically stable. CT scan abdomen pelvis was performed showing loop of small bowel incarcerated within the left spigelian hernia defect. No evidence of pneumatosis or perforation the bowel seen. Lactic acid level is normal. She is afebrile. This morning her pain is better but she has been getting some IV pain medication. She is on Zosyn for IV antibiotic therapy. Nasogastric tube is in place and chest x-ray reveals it is in the stomach. She is still having some nausea this more despite having an NG tube in place. She has had a prior laparoscopic cholecystectomy. She has also had a prior abdominal plasty. In questioning the patient she had a bladder tack by Dr. Parson then at [facility] about 8 or 9 months ago. She states this was not done laparoscopically or robotically. We have no records here at [facility] to confirm how the surgery was done. [facility] Past Medical History Medical History Hypertension History of renal stone Surgical History Surgical History History of colonoscopy last performed approximately 2001 History of genitourinary surgical procedure lift with Dr Parson Social History Social History Smoking status: Never smoker Alcohol intake: current Drinks per week: 1 Substance use: current Other substance usage details: marijuana gummies Do You Feel Safe in your Home?: Yes Lack of Transportation: No Lack of Food: Never True Current Housing: I Have Housing Concerned About Future Housing: No Difficulty Paying Gas/Electric Bills: No Difficulty Paying for Meds: No Currently Unemployed: No Education: High School Diploma/GED Difficulty w/ Childcare or Family Care: No Spiritual care concerns: No Meds Home Medications and Allergies Home Medications ?Medication ?Instructions ?Recorded ?Confirmed ?Type ondansetron 4 mg disintegrating 4 mg PO Q8H PRN nausea and 11/24/23 11/08/24 Rx tablet vomiting #15 tabs alprazolam 0.5 mg tablet 0.5 mg PO BID PRN anxiety 11/08/24 11/09/24 History atorvastatin 10 mg tablet 10 mg PO DAILY 11/08/24 11/09/24 History bupropion HCl 150 mg 24 hr tablet, 150 mg PO DAILY 11/08/24 11/09/24 History extended release celecoxib 200 mg capsule 200 mg PO DAILY 11/08/24 11/09/24 History esomeprazole magnesium 40 mg 40 mg PO DAILY 11/08/24 11/09/24 History capsule,delayed release olmesartan 20 mg tablet 20 mg PO DAILY 11/08/24 11/09/24 History Allergies Allergy/AdvReac Type Severity Reaction Status Date / Time Penicillins Allergy Unknown Verified 11/08/24 17:46 Vital Signs Vital Signs - 24 hr 11/08/24 17:54 11/08/24 20:01 11/08/24 22:15 Temperature 36.8 C 36.9 C Pulse Rate 93 82 Respiratory Rate 20 18 Blood Pressure 148/98 H 146/84 H Pulse Oximetry 99 98 95 Oxygen Delivery Room Air 11/08/24 22:26 11/08/24 22:30 11/08/24 22:31 Temperature Pulse Rate 88 Respiratory Rate 17 Blood Pressure 146/79 H 122/71 Pulse Oximetry 94 93 97 Oxygen Delivery 11/08/24 22:45 11/08/24 23:00 11/08/24 23:26 Temperature Pulse Rate Respiratory Rate Blood Pressure Pulse Oximetry 95 94 96 Oxygen Delivery 11/08/24 23:30 11/08/24 23:47 11/09/24 00:59 Temperature 35.6 C L Pulse Rate 89 Respiratory Rate 16 Blood Pressure 124/57 L Pulse Oximetry 95 93 92 Oxygen Delivery 11/09/24 02:05 11/09/24 04:35 Temperature 35.6 C L Pulse Rate 78 78 Respiratory Rate 18 18 Blood Pressure 120/64 Pulse Oximetry 92 92 Oxygen Delivery Room Air Exam 2 Const: General: in distress (Mildly nauseated) mild HENMT: Ears: TM's normal bilaterally Face/Nose/Sinus: Normal nares present Mouth: Yes moist mucous membranes Eyes: General: appearance normal, both eyes and all related structures S clera: sclerae normal Pupils: Equal, round and reactive pupils present E OM: EOMs intact bilaterally Neck: Neck: supple and no JVD Resp: Effort & Inspection: normal respiratory effort Auscultation: clear to auscultation bilaterally Cardio: Rate: regular rate Rhythm: regular rhythm GI: Other: And is moderately obese. Mild abdominal distension. Incarcerated left lower quadrant spigelian hernia noted. No erythema the skin over the hernia. Mildly tender to palpation. Non reducible. Well-healed incisions indicative of a prior abdominal plasty. Also well-healed laparoscopic incisions from her laparoscopic cholecystectomy. No other ventral hernias are noted. No generalized peritoneal signs and no guarding. Skin: General skin exam: normal color and no rashes or lesions noted Neuro: General: gait normal Speech: normal speech Motor exam (neuro): 5 /5 motor strength present throughout Sensory Exam: normal sensation Extrem: General: normal to inspection Psych: Mental Status: mental status grossly normal Affect: normal affect Results Labs 11/09/24 08:17 11/09/24 08:17 Labs: Short CBC 11/08/24 11/09/24 Range/Units 13:17 08:17 WBC 9.3 6.9 (4.5-10.0) K/mm3 Hgb 14.2 12.8 (12.0-15.0) g/dL Hct 44.4 40.8 (37.0-47.0) % Plt Count 207 180 (150-375) k/mm3 BMP 11/08/24 11/09/24 20:15 08:17 Sodium 140 139 Potassium 3.9 3.8 Chloride 102 104 Carbon Dioxide 27 24 BUN 24 H 21 H Creatinine 0.90 0.76 Glucose 112 H 132 H Calcium 9.6 8.8 Liver Function 11/08/24 11/09/24 Range/Units 20:15 08:17 Total Bilirubin 1.1 2.9 H (0.2-1.3) mg/dL AST 32 416 H (14-36) U/L ALT 23 219 H (6-35) U/L Alkaline Phosphatase 131 H 262 H (38-126) U/L Albumin 4.5 3.9 (3.5-5.1) g/dL Urine 11/08/24 Range/Units 20:11 Urine Color Dark yellow (Yellow) Urine Appearance Cloudy H (Clear) Urine pH 5.0 (5.0-9.0) Ur Specific [place] 1.026 (1.001-1.035) Urine Protein 1+ H (Negative) mg/dL Urine Glucose (UA) Negative (Negative) mg/dL Imaging Radiologist's impression: CT Scan Report Signed Patient: Dottie Damon : 1950 MR#: [id number] Age: 74 Acct:[id number] Loc: [facility] ADM Date: 11/08/24Attending Dr: Ordering Physician: Mary Beth Pickering MD Date of Service: 11/08/24 Procedure(s): CT abdomen pelvis w con Accession Number(s): [id number] cc: Mary Beth Pickering MD; [facility] MACHINE OPERATOR PHYSICIAN~ EXAMINATION: CT abdomen pelvis w con DATE: 11/08/2024 21:51 INDICATION: L flank/back pain LLQ abd pain TECHNIQUE: Computed tomography (CT) of the abdomen and pelvis was performed with 100 mL Omnipaque-350 intravenous contrast. Automated exposure control and iterative reconstruction technique were employed. The dose-length product was 1187.04 mGy-cm. COMPARISON: None. FINDINGS: Lower thorax: Mitral annulus calcification Liver: Normal. Biliary/Gallbladder: Gallbladder is absent. Mild intra and extrahepatic bile duct dilation, likely secondary to cholecystectomy Pancreas: No mass or duct dilation. Spleen: Normal. Adrenals:No mass. Kidneys: No obstructing stone. Mild right pelviectasis. Subtle patchy hypoenhancement in the anterior inferior portion of the right lower pole with mild adjacent stranding. 5 mm right midpole AML. Multiple subcentimeter left renal hypodensities, too small to characterize but most likely represent cysts. Bilateral nonobstructing punctate lower pole calculi. GI tract: Uncomplicated duodenal diverticulum. Multiple loops of dilated small bowel in the mid and lower abdomen, transition point in a small bowel containing left lateral abdominal wall hernia. No bowel wall thickening, inflammatory change, interloop fluid, or pneumatosis. Appendix not confidently visualized Diverticulosis without diverticulitis. Mesentery/Peritoneum: No ascites, mass, or free air. Retroperitoneum: No mass. Atherosclerotic calcifications of intra-abdominal arterial vessels. Pelvis: Gas in the urinary bladder lumen, without wall thickening or inflammatory change. Normal uterus and bilateral ovaries. Soft Tissues: Fat and small bowel containing left lower lateral abdominal wall hernia, with mild inflammatory change and fluid. The herniated bowel is narrowed upon entering and exiting the hernia. Mild mucosal hyperemia/thickening at the hernia entrance. Bones: No acute osseous finding. IMPRESSION: Small bowel obstruction secondary to herniation of small bowel into a left spigelian hernia, with possible strangulation. Focal area of hypoenhancement in the right lower pole with mild pelviectasis indication inflammatory change, consider ascending infection with pyelonephritis. Gas within the urinary bladder, correlate with any history of recent instrumentation and urinalysis. Reviewed, dictated and finalized at location K.
[2024-11-09] MEDS: PANTOPRAZOLE SODIUM IV 40 MG VIAL IV PUSH (10:35)
[2024-11-09 11:02] LABS: Prothrombin Time 13.8 Seconds (11.1-14.7)
[2024-11-09 14:30] VITALS: BP 133/75; PULSE 68; RESP 18; TEMP 36.5; O2SAT 96
[2024-11-09] MEDS: HYDROmorphone HCL INJ (*CRX) 1 MG/ML SYR IV PUSH ×2 (14:47→19:44)
[2024-11-09 20:00] VITALS: PULSE 68; RESP 18; O2SAT 96
[2024-11-09 22:00] VITALS: BP 143/78; PULSE 70; RESP 16; TEMP 35.9; O2SAT 97
[2024-11-10] VITALS (13 sets, daily range): BP systolic 104–153; BP diastolic 46–73; PULSE 74–91; RESP 14–20; TEMP 35.9–37.2; O2SAT 90–99
[2024-11-10] MEDS: LACTATED RINGERS 1,000 ML 125 ML IV CONT ×2 (04:12→23:35)
[2024-11-10] MEDS: PIPERACILLN/TAZ 3.375GM/NS50ML 3.375 GM/50 ML BAG IVPB ×4 (04:13→21:01)
[2024-11-10] MEDS: ONDANSETRON INJ 4 MG/2 ML VIAL IV PUSH ×2 (05:42→17:46)
[2024-11-10] MEDS: HYDROmorphone HCL INJ (*CRX) 1 MG/ML SYR IV PUSH ×2 (05:43→17:46)
[2024-11-10 06:06] LABS: Hematocrit 39.6 % (37.0-47.0); Hemoglobin 12.6 g/dL (12.0-15.0); Mean Corpuscular HGB Conc 31.8 g/dl (32-36); Mean Corpuscular Hemoglobin 29.9 pg (26-34); Mean Corpuscular Volume 93.8 fl (80-100); Platelet Count Result 181 k/mm3 (150-375); Red Blood Count 4.22 M/mm3 (4.2-5.4); Red Cell Distribution Width 12.7 % (11.5-14.5); White Blood Count 8.2 K/mm3 (4.5-10.0)
[2024-11-10 06:20] LABS: Alanine Aminotransferase 156 U/L (6-35); Albumin Level 3.7 g/dL (3.5-5.1); Alkaline Phosphatase 226 U/L (38-126); Anion Gap 7 mmol/L (4-12); Aspartate Amino Transferase 138 U/L (14-36); Blood Urea Nitrogen 16 mg/dL (7-17); Calcium 8.8 mg/dL (8.4-10.2); Carbon Dioxide 27 mmol/L (22-30); Chloride 104 mmol/L (98-107); Estimated CRCL calculation 63 ml/min; Estimated Glomerular Filt Rate > 60; Glucose 95 mg/dL (65-110); Potassium 3.6 mmol/L (3.4-5.0); Sodium 138 mmol/L (137-145)
--- NOTE | 2024-11-10 07:13 | P.PNIM_ITS ---
Progress Note: A&P Assessment and Plan (1) Small bowel obstruction with strangulation or infarction: Status: Acute Assessment and Plan: - CT abdomen/pelvis: SBO secondary to herniation of small bowel into a left spigelian hernia, with possible strangulation - Blood cultures obtained on 11/09: NGTD - Protonix 40 mg IV daily - Gentle IV fluid resuscitation given the patient's NPO status - P.r.n. Anti emetics and analgesics - NG tube to low intermittent suction - Monitor I&Os, vital signs, neuro status and patient is a fall risk - Monitor serum electrolytes and CBC - Surgery consulted Plan for a robotic assisted laparoscopic incarcerated spigelian hernia repair with possible mesh placement, possible conversion to open repair with Dr. Gruber (2) UTI (urinary tract infection): Code(s): N39.0 - Urinary tract infection, site not specified Status: Acute Assessment and Plan: - UA: cloudy appearance with 1+ protein, trace ketones, 2+ leukocytes, 51-100 WBC, and 4+ bacteria. Moderate squamous cells present so possible contamination however cocurrent pyelonephritis seen on imaging. - UC obtained on 11/09: klebsiella pneumoniae - sensitivities pending - no previous micro to be reviewed - received Rocephin in the ED then started on zosyn for cocurrent SBO on 11/09 (3) Pyelonephritis: Code(s): N12 - Tubulo-interstitial nephritis, not specified as acute or chronic Status: Acute Assessment and Plan: CT abdomen/pelvis: Focal area of hypoenhancement in the right lower pole with mild pelviectasis indication inflammatory change, consider ascending infection with pyelonephritis. Gas within the urinary bladder, correlate with any history of recent instrumentation and urinalysis. See UTI #2. (4) Hypertension: Code(s): I10 - Essential (primary) hypertension Status: Acute Assessment and Plan: Chronic Holding olmesartan 20 mg daily for SBO as patient has NG tube in place Blood pressures remain stable, continue to monitor Time Spent With Patient Time with patient: 25 - 35 minutes Subjective Date/time seen: 11/10/24 07:13 Interval history: 74-year-old female with past medical history of hypertension, dyslipidemia and kidney stones presents to the hospital for abdominal pain. Patient is pleasant lying comfortably in bed with family at bedside. She states that pain is well controlled at this time. She continues to endorse slight nausea. NG tube remains in place. Plan for surgery later this afternoon. She has no other complaints chest pain, shortness a breath, palpitations. Review of Systems Review of Systems: All systems reviewed & are unremarkable except as noted in HPI and below Exam Narrative: AF HR 74 RR 16 SpO2 95 BP 135/49 General: female in no acute respiratory distress who is nontoxic appearing, lying semi recumbent in bed. HEENT: Normocephalic. Atraumatic. Extraocular movement intact. Sclera clear and anicteric. No facial asymmetry. NG to low intermittent suction. Chest: Lungs are clear to auscultation bilaterally. CV: Heart was regular rate and rhythm. Abd: Abdomen was soft. Tender to LLQ. Nonreducible hernia. Hypoactive bowel sounds. Neuro: Patient is alert and oriented x4. Speech is clear. Objective Data Vital Signs Vital Signs: Vital Signs - 24 hr 11/09/24 14:30 11/09/24 20:00 11/09/24 22:00 Temperature 97.7 F 96.7 F L Pulse Rate 68 68 70 Respiratory Rate 18 18 16 Blood Pressure 133/75 143/78 H Pulse Oximetry 96 96 97 Oxygen Delivery Room Air 11/10/24 05:41 Temperature 96.7 F L Pulse Rate 76 Respiratory Rate 20 Blood Pressure 133/55 L Pulse Oximetry 96 Oxygen Delivery Intake/Output Intake/Output: Intake & Output 11/07/24 11/08/24 11/09/24 11/10/24 23:59 23:59 23:59 23:59 Intake Total 50 2150 1000 Output Total 100 Balance 50 2050 1000 Meds/Results Medications: Active Medications Generic Name Dose Route Start Last Admin Trade Name Freq PRN Reason Stop Dose Admin Hydromorphone HCl 1 mg 11/09/24 10:12 11/10/24 05:43 Hydromorphone Hcl Inj (*Crx) 1 Mg/Ml Syr IV PUSH 1 mg Q4H PRN Administration Pain Rated 7-10 Lactated Ringer's 1,000 mls @ 125 mls/hr 11/08/24 23:15 11/10/24 04:12 Lr - Lactated Ringers Iv IV CONT 125 mls/hr .Q8H JAYME Administration Piperacillin/Tazobactam/Dextrose 3.375 gm in 50 mls @ 100 mls/hr 11/09/24 08:00 11/10/24 04:13 Zosyn 3.375 Gm/Ns 50 Ml IVPB 100 mls/hr Q6H JAYME Administration Ondansetron HCl 4 mg 11/08/24 23:12 11/10/24 05:42 Ondansetron Inj 4 Mg/2 Ml Vial IV PUSH 4 mg Q4H PRN Administration Nausea Pantoprazole Sodium 40 mg 11/09/24 10:15 11/09/24 10:35 Pantoprazole Sodium Iv 40 Mg Vial IV PUSH 40 mg QAM JAYME Administration Radiology Results: ITS Impressions Abdomen/Pelvis CT 11/08/24 22:01 IMPRESSION: Small bowel obstruction secondary to herniation of small bowel into a left spige nandini hernia, with possible strangulation. Focal area of hypoenhancement in the right lower pole with mild pelviectasis indication inflammatory change, consider ascending infection with pyelonephritis. Gas within the urinary bladder, correlate with any history of recent instrumentation and urinalysis. Labs Labs: Laboratory Results - last 24 hr 11/09/24 11/09/24 11/09/24 08:17 10:32 10:51 WBC 6.9 RBC 4.25 Hgb 12.8 Hct 40.8 MCV 96.0 MCH 30.1 MCHC 31.4 L RDW 13.0 Plt Count 180 MPV 11.4 H PT 13.8 INR 1.0 Sodium 139 Potassium 3.8 Chloride 104 Carbon Dioxide 24 Anion Gap 11 BUN 21 H Creatinine 0.76 Estim Creat Clear Calc 63 Estimated GFR > 60 Glucose 132 H Calcium 8.8 Total Bilirubin 2.9 H AST 416 H ALT 219 H Alkaline Phosphatase 262 H Total Protein 7.0 Albumin 3.9 Blood Type B Negative Antibody Screen Negative 11/10/24 05:36 WBC 8.2 RBC 4.22 Hgb 12.6 Hct 39.6 MCV 93.8 MCH 29.9 MCHC 31.8 L RDW 12.7 Plt Count 181 MPV 12.0 H PT INR Sodium 138 Potassium 3.6 Chloride 104 Carbon Dioxide 27 Anion Gap 7 BUN 16 Creatinine 0.77 Estim Creat Clear Calc 63 Estimated GFR > 60 Glucose 95 Calcium 8.8 Total Bilirubin 1.0 AST 138 H ALT 156 H Alkaline Phosphatase 226 H Total Protein 7.0 Albumin 3.7 Blood Type Antibody Screen Quality VTE Prophylaxis VTE prophylaxis: mechanical ordered
[2024-11-10] MEDS: PANTOPRAZOLE SODIUM IV 40 MG VIAL IV PUSH (08:01)
--- NOTE | 2024-11-10 11:05 | PC.NURSE ---
To OR per [ ], IV [ ]. Report given to [Elina].
[2024-11-10] MEDS: LACTATED RINGERS 1,000 ML 30 ML IV CONT ×2 (11:30→21:56)
--- NOTE | 2024-11-10 12:14 | WPDANESEPPF ---
Anes - Initial Pre Proc Eval Procedure: Operation Date: 11/10/24 12:30 Proposed Procedures p Robotic Incarcerated Left Spigelian Hernia Repair,Possible Open - Jose Gruber MD Date/Time: 11/10/24 12:14 Surgeon: Heather Bell PA-C Pre Op Diagnosis: UTI/pyelo; small bowel obstruction Patient Data Age: 74 Gender: F Height: 1.63 m Weight: 90.9 kg Last Vital Signs Temp 96.7 F L 11/10/24 05:41 Pulse 76 11/10/24 05:41 Resp 20 11/10/24 05:41 BP 133/55 L 11/10/24 05:41 Pulse Ox 95 11/10/24 08:51 O2 Del Method Room Air 11/10/24 08:51 Allergies Allergy/AdvReac Type Severity Reaction Status Date / Time Penicillins Allergy Unknown Verified 11/10/24 12:06 Home Medications ?Medication ?Instructions ?Recorded ?Confirmed ?Type ondansetron 4 mg disintegrating 4 mg PO Q8H PRN nausea and 11/24/23 11/08/24 Rx tablet vomiting #15 tabs alprazolam 0.5 mg tablet 0.5 mg PO BID PRN anxiety 11/08/24 11/09/24 History atorvastatin 10 mg tablet 10 mg PO DAILY 11/08/24 11/09/24 History bupropion HCl 150 mg 24 hr tablet, 150 mg PO DAILY 11/08/24 11/09/24 History extended release celecoxib 200 mg capsule 200 mg PO DAILY 11/08/24 11/09/24 History esomeprazole magnesium 40 mg 40 mg PO DAILY 11/08/24 11/09/24 History capsule,delayed release olmesartan 20 mg tablet 20 mg PO DAILY 11/08/24 11/09/24 History Laboratory Tests 11/10/24 05:36 WBC 8.2 K/mm3 (4.5-10.0) RBC 4.22 M/mm3 (4.2-5.4) Hgb 12.6 g/dL (12.0-15.0) Hct 39.6 % (37.0-47.0) MCV 93.8 fl (80-100) MCH 29.9 pg (26-34) MCHC 31.8 L g/dl (32-36) RDW 12.7 % (11.5-14.5) Plt Count 181 k/mm3 (150-375) MPV 12.0 H fl (7.4-10.4) Sodium 138 mmol/L (137-145) Potassium 3.6 mmol/L (3.4-5.0) Chloride 104 mmol/L (98-107) Carbon Dioxide 27 mmol/L (22-30) Anion Gap 7 mmol/L (4-12) BUN 16 mg/dL (7-17) Creatinine 0.77 mg/dL (0.7-1.0) Estim Creat Clear Calc 63 ml/min Estimated GFR > 60 (59 - ) Glucose 95 mg/dL (65-110) Calcium 8.8 mg/dL (8.4-10.2) Total Bilirubin 1.0 mg/dL (0.2-1.3) AST 138 H U/L (14-36) ALT 156 H U/L (6-35) Alkaline Phosphatase 226 H U/L (38-126) Total Protein 7.0 g/dL (6.3-8.2) Albumin 3.7 g/dL (3.5-5.1) Patient hx anesthesia problems: none Family hx anesthesia problems: none Results Review: All pre-operative results and documents have been reviewed as part of the pre-operative evaluation. [facility] Past Medical History Medical History Hypertension History of renal stone Surgical History Surgical History History of colonoscopy last performed approximately 2001 History of genitourinary surgical procedure lift with Dr Parson Social History Social History Smoking status: Never smoker Alcohol intake: current Drinks per week: 1 Substance use: current Other substance usage details: marijuana gummies Do You Feel Safe in your Home?: Yes Lack of Transportation: No Lack of Food: Never True Current Housing: I Have Housing Concerned About Future Housing: No Difficulty Paying Gas/Electric Bills: No Difficulty Paying for Meds: No Currently Unemployed: No Education: High School Diploma/GED Difficulty w/ Childcare or Family Care: No Spiritual care concerns: No Anes - Eval Final PreProcedure Day of Procedure 11/10/24 12:14 Patient weight: obese Heart: regular rate and rhythm Lungs: clear to auscultation Airway: Mallampati scale class II Neurological: alert and oriented Last oral intake: >/= 8 hours ASA classification: III Emergent: no Anesthetic plan: proceed Anesthesia type and monitoring: general (RSI) ETT and standard monitoring Results Review: All pre-operative results and documents have been reviewed as part of the pre-operative evaluation. Informed Consent: The patient's anesthetic plan and its attendant risks and benefits were discussed with the patient/family/POA. Questions were solicited and answers provided to the satisfaction of the patient/family/POA.
[2024-11-10] MEDS: fentaNYL CITRATE INJ (*CRX) 100 MCG/2 ML VIAL 25 MCG IV PUSH (14:11)
--- NOTE | 2024-11-10 14:24 | WPDHPUPDATE1 ---
History and Physical Update Update Date/Time: 11/10/24 14:24 History and Physical has been reviewed, including an updated exam of the patient. There are NO changes in the patient's condition. Risks, benefits, and alternatives have been discussed and questions answered. Patient agrees to proceed with procedure. Procedure will now be laparoscopic left spegalian hernia repair, possible mesh placement, possible open, possible bowel resection.
--- NOTE | 2024-11-10 15:00 | SUR.PREOP ---
Patients time was changed, Patient was returned to her room 303-1. Report was given to her nurse Huong.
[2024-11-10] MEDS: LIDO 1%/EPINEPHRINE 1:100,000 50 ML VIAL 30 ML INFILTRATE (15:44)
--- NOTE | 2024-11-10 19:15 | WPDANESEPPF ---
Anes - Initial Pre Proc Eval Procedure: Operation Date: 11/10/24 12:30 Proposed Procedures p Laparoscopic Incarcerated Left Spigelian Hernia Repair, Possible Open - Jose Gruber MD Date/Time: 11/10/24 19:15 Surgeon: Yasmani Pre Op Diagnosis: UTI/pyelo; small bowel obstruction Patient Data Age: 74 Gender: F Height: 1.63 m Weight: 90.9 kg Last Vital Signs Temp 36.0 C L 11/10/24 14:53 Pulse 80 11/10/24 14:53 Resp 16 11/10/24 14:53 BP 153/72 H 11/10/24 14:53 Pulse Ox 90 11/10/24 14:53 O2 Del Method Room Air 11/10/24 08:51 Allergies Allergy/AdvReac Type Severity Reaction Status Date / Time Penicillins Allergy Unknown Verified 11/10/24 12:06 Home Medications ?Medication ?Instructions ?Recorded ?Confirmed ?Type ondansetron 4 mg disintegrating 4 mg PO Q8H PRN nausea and 11/24/23 11/08/24 Rx tablet vomiting #15 tabs alprazolam 0.5 mg tablet 0.5 mg PO BID PRN anxiety 11/08/24 11/09/24 History atorvastatin 10 mg tablet 10 mg PO DAILY 11/08/24 11/09/24 History bupropion HCl 150 mg 24 hr tablet, 150 mg PO DAILY 11/08/24 11/09/24 History extended release celecoxib 200 mg capsule 200 mg PO DAILY 11/08/24 11/09/24 History esomeprazole magnesium 40 mg 40 mg PO DAILY 11/08/24 11/09/24 History capsule,delayed release olmesartan 20 mg tablet 20 mg PO DAILY 11/08/24 11/09/24 History Laboratory Tests 11/10/24 05:36 WBC 8.2 K/mm3 (4.5-10.0) RBC 4.22 M/mm3 (4.2-5.4) Hgb 12.6 g/dL (12.0-15.0) Hct 39.6 % (37.0-47.0) MCV 93.8 fl (80-100) MCH 29.9 pg (26-34) MCHC 31.8 L g/dl (32-36) RDW 12.7 % (11.5-14.5) Plt Count 181 k/mm3 (150-375) MPV 12.0 H fl (7.4-10.4) Sodium 138 mmol/L (137-145) Potassium 3.6 mmol/L (3.4-5.0) Chloride 104 mmol/L (98-107) Carbon Dioxide 27 mmol/L (22-30) Anion Gap 7 mmol/L (4-12) BUN 16 mg/dL (7-17) Creatinine 0.77 mg/dL (0.7-1.0) Estim Creat Clear Calc 63 ml/min Estimated GFR > 60 (59 - ) Glucose 95 mg/dL (65-110) Calcium 8.8 mg/dL (8.4-10.2) Total Bilirubin 1.0 mg/dL (0.2-1.3) AST 138 H U/L (14-36) ALT 156 H U/L (6-35) Alkaline Phosphatase 226 H U/L (38-126) Total Protein 7.0 g/dL (6.3-8.2) Albumin 3.7 g/dL (3.5-5.1) Patient hx anesthesia problems: none Family hx anesthesia problems: none Results Review: All pre-operative results and documents have been reviewed as part of the pre-operative evaluation. [facility] Past Medical History Medical History (Updated 11/10/24 @ 19:59 by Gumaro Chavez DO) GERD (gastroesophageal reflux disease) BHAVYA (obstructive sleep apnea) Hypertension History of renal stone Surgical History Surgical History History of bilateral knee replacement History of colonoscopy last performed approximately 2001 History of genitourinary surgical procedure lift with Dr Parson Social History Social History Smoking status: Never smoker Alcohol intake: current Drinks per week: 1 Substance use: current Other substance usage details: marijuana gummies Do You Feel Safe in your Home?: Yes Lack of Transportation: No Lack of Food: Never True Current Housing: I Have Housing Concerned About Future Housing: No Difficulty Paying Gas/Electric Bills: No Difficulty Paying for Meds: No Currently Unemployed: No Education: High School Diploma/GED Difficulty w/ Childcare or Family Care: No Spiritual care concerns: No Anes - Eval Final PreProcedure Day of Procedure 11/10/24 19:15 Patient weight: obese Heart: regular rate and rhythm Lungs: clear to auscultation Airway: Mallampati scale class II Neurological: alert and oriented Last oral intake: >/= 8 hours ASA classification: III Emergent: no Anesthetic plan: proceed Anesthesia type and monitoring: general ETT and standard monitoring Results Review: All pre-operative results and documents have been reviewed as part of the pre-operative evaluation. Informed Consent: The patient's anesthetic plan and its attendant risks and benefits were discussed with the patient/family/POA. Questions were solicited and answers provided to the satisfaction of the patient/family/POA.
[2024-11-10] MEDS: LIDO 1%/EPINEPHRINE 1:100,000 20 ML VIAL 30 ML INFILTRATE (21:17)
--- NOTE | 2024-11-10 21:43 | SUR.OPER ---
200 c urine wasted prior to discontinuing the kwok
--- NOTE | 2024-11-10 21:56 | PM.OP ---
Procedure Note - Brief Procedure Note - Brief Date of procedure: 11/10/24 Small-bowel obstruction secondary to incarcerated left spigelian hernia Post-op diagnosis: Same Procedure performed: Diagnostic laparoscopy, open incarcerated left spigelian hernia with Bard soft mesh. Surgeon: Jose Gruber MD Anesthesia: GETA Implants: Bard soft mesh 15x7.5cm Estimated blood loss (mL): 25 Drains: No Packing: No Pathology: Yes (Hernia sac to pathology) Complications: No immediate complications Condition: Stable Disposition: PACU
[2024-11-11] VITALS (8 sets, daily range): BP systolic 105–148; BP diastolic 40–96; PULSE 69–86; RESP 16–20; TEMP 36.3–36.9; O2SAT 94–98
[2024-11-11] MEDS: ONDANSETRON INJ 4 MG/2 ML VIAL IV PUSH ×4 (00:41→19:51)
[2024-11-11] MEDS: HYDROmorphone HCL INJ (*CRX) 1 MG/ML SYR IV PUSH ×3 (00:41→09:44)
[2024-11-11 06:17] LABS: Hemoglobin 12.4 g/dL (12.0-15.0); Mean Corpuscular HGB Conc 32.6 g/dl (32-36); Mean Corpuscular Hemoglobin 30.6 pg (26-34); Mean Corpuscular Volume 93.8 fl (80-100); Mean Platelet Volume 11.6 fl (7.4-10.4); Platelet Count Result 192 k/mm3 (150-375); Red Blood Count 4.05 M/mm3 (4.2-5.4); Red Cell Distribution Width 12.2 % (11.5-14.5); White Blood Count 11.7 K/mm3 (4.5-10.0)
[2024-11-11 06:54] LABS: Alanine Aminotransferase 104 U/L (6-35); Albumin Level 3.7 g/dL (3.5-5.1); Alkaline Phosphatase 185 U/L (38-126); Anion Gap 13 mmol/L (4-12); Aspartate Amino Transferase 70 U/L (14-36); Bilirubin,Total 0.6 mg/dL (0.2-1.3); Blood Urea Nitrogen 13 mg/dL (7-17); Calcium 8.6 mg/dL (8.4-10.2); Carbon Dioxide 22 mmol/L (22-30); Chloride 102 mmol/L (98-107); Estimated CRCL calculation 65 ml/min; Estimated Glomerular Filt Rate > 60; Glucose 119 mg/dL (65-110); Potassium 3.9 mmol/L (3.4-5.0); Sodium 137 mmol/L (137-145)
[2024-11-11] MEDS: PANTOPRAZOLE 40 MG TABLET PO (08:18)
--- NOTE | 2024-11-11 08:49 | PM.IMPN ---
Progress Note: A&P Assessment and Plan (1) Small bowel obstruction with strangulation or infarction: Status: Acute Assessment and Plan: - CT abdomen/pelvis: SBO secondary to herniation of small bowel into a left spigelian hernia, with possible strangulation - Blood cultures obtained on 11/09: NGTD - Protonix 40 mg daily - Diet: regular diet , tolerating well - P.r.n. Anti emetics and analgesics - Monitor I&Os, vital signs, neuro status and patient is a fall risk - Monitor serum electrolytes and CBC - Surgery consulted S/p Diagnostic laparoscopy, open incarcerated left spigelian hernia with Bard soft mesh on 11/[address] Gruber Follow up with Dr. Gruber in 2 weeks (2) UTI (urinary tract infection): Code(s): N39.0 - Urinary tract infection, site not specified Status: Acute Assessment and Plan: - UA: cloudy appearance with 1+ protein, trace ketones, 2+ leukocytes, 51-100 WBC, and 4+ bacteria. Moderate squamous cells present so possible contamination however cocurrent pyelonephritis seen on imaging. - UC obtained on 11/09: klebsiella pneumoniae pansensitive - no previous micro to be reviewed - received Rocephin in the ED then started on zosyn for cocurrent SBO on 11/09, transitioned to levaquin on 11/11 (3) Pyelonephritis: Code(s): N12 - Tubulo-interstitial nephritis, not specified as acute or chronic Status: Acute Assessment and Plan: CT abdomen/pelvis: Focal area of hypoenhancement in the right lower pole with mild pelviectasis indication inflammatory change, consider ascending infection with pyelonephritis. Gas within the urinary bladder, correlate with any history of recent instrumentation and urinalysis. See UTI #2. (4) Hypertension: Code(s): I10 - Essential (primary) hypertension Status: Acute Assessment and Plan: Chronic Resumed olmesartan 20 mg daily Blood pressures remain stable, continue to monitor Time Spent With Patient Time with patient: 25 - 35 minutes Subjective Date/time seen: 11/11/24 08:49 Interval history: 74-year-old female with past medical history of hypertension, dyslipidemia and kidney stones presents to the hospital for abdominal pain. Patient is pleasant sitting on the side of her bed with family. She is currently eating a regular diet and is tolerating it well denying any nausea/vomiting or increased abdominal pain. She denies any flatus or bowel movements since surgery. She continues to require pain medications, last using IV this morning. Though patient denies nausea, spoke with nurse who states that she has continued to use the Zofran for nausea. She denies any chest pain, shortness a breath, or palpitations. Review of Systems Review of Systems: All systems reviewed & are unremarkable except as noted in HPI and below Exam Narrative: AF HR 78 RR 18 SPO2 96 BP 110/89 General: female in no acute respiratory distress who is nontoxic appearing, sitting on side of bed HEENT: Normocephalic. Atraumatic. Extraocular movement intact. Sclera clear and anicteric. No facial asymmetry. Chest: Lungs are clear to auscultation bilaterally. CV: Heart was regular rate and rhythm. Abd: Abdomen was soft. Incisional pain. Abdominal binder in place. Hypoactive bowel sounds. Neuro: Patient is alert and oriented x4. Speech is clear. Objective Data Vital Signs Vital Signs: Vital Signs - 24 hr 11/10/24 08:51 11/10/24 12:26 11/10/24 14:53 Temperature 99 F 96.8 F L Pulse Rate 74 80 Respiratory Rate 16 16 Blood Pressure 135/49 L 153/72 H Pulse Oximetry 95 95 90 Oxygen Delivery Room Air Oxygen Flow Rate 11/10/24 19:46 11/10/24 21:56 11/10/24 22:00 Temperature 98.8 F Pulse Rate 80 76 83 Respiratory Rate 16 18 17 Blood Pressure 104/46 L 134/61 Pulse Oximetry 90 96 95 Oxygen Delivery Room Air Simple Face Mask Simple Face Mask Oxygen Flow Rate 8 8 11/10/24 22:10 11/10/24 22:15 11/10/24 22:30 Temperature Pulse Rate 91 86 Respiratory Rate 14 15 Blood Pressure 124/68 143/73 H Pulse Oximetry 99 99 94 Oxygen Delivery Simple Face Mask Room Air Room Air Oxygen Flow Rate 8 11/10/24 22:35 11/10/24 22:48 11/10/24 23:05 Temperature 98.7 F 98 F Pulse Rate 85 82 Respiratory Rate 16 20 Blood Pressure 149/68 H 144/73 H Pulse Oximetry 95 99 97 Oxygen Delivery Nasal Cannula Oxygen Flow Rate 2 11/11/24 00:11 11/11/24 00:35 11/11/24 05:22 Temperature 98.4 F 97.7 F Pulse Rate 86 80 Respiratory Rate 20 20 Blood Pressure 137/67 148/82 H Pulse Oximetry 94 94 98 Oxygen Delivery Room Air Oxygen Flow Rate 11/11/24 07:54 Temperature 97.4 F L Pulse Rate 69 Respiratory Rate 16 Blood Pressure 135/75 Pulse Oximetry 95 Oxygen Delivery Oxygen Flow Rate Intake/Output Intake/Output: Intake & Output 11/08/24 11/09/24 11/10/24 11/11/24 23:59 23:59 23:59 23:59 Intake Total 50 2150 2500 100 Output Total 100 200 Balance 50 2050 2300 100 Meds/Results Medications: Active Medications Generic Name Dose Route Start Last Admin Trade Name Freq PRN Reason Stop Dose Admin Acetaminophen 1,000 mg 11/10/24 22:36 Acetaminophen 500 Mg Tablet PO Q6H PRN Mild Pain (1-3) or Fever Hydrocodone Bitart/Acetaminophen 1 tab 11/10/24 22:36 Hydrocodone/Acetaminophen (*Crx) 5-325 Mg Tablet PO Q4H PRN Pain Rated 4-6 Fentanyl Citrate 25 mcg 11/10/24 19:15 Fentanyl Citrate Inj (*Crx) 100 Mcg/2 Ml Vial IV PUSH Q2M PRN Pain Hydromorphone HCl 1 mg 11/09/24 10:12 11/11/24 05:16 Hydromorphone Hcl Inj (*Crx) 1 Mg/Ml Syr IV PUSH 1 mg Q4H PRN Administration Pain Rated 7-10 Lactated Ringer's 1,000 mls @ 125 mls/hr 11/08/24 23:15 11/10/24 23:35 Lr - Lactated Ringers Iv IV CONT 125 mls/hr .Q8H JAYME Administration Lactated Ringer's 1,000 mls @ 30 mls/hr 11/10/24 19:15 11/10/24 21:56 Lr - Lactated Ringers Iv IV CONT 30 mls/hr .Q24H JAYME Administration Ondansetron HCl 4 mg 11/08/24 23:12 11/11/24 05:16 Ondansetron Inj 4 Mg/2 Ml Vial IV PUSH 4 mg Q4H PRN Administration Nausea Ondansetron HCl 4 mg 11/10/24 12:27 Ondansetron Inj 4 Mg/2 Ml Vial IV PUSH ONCE PRN Nausea Ondansetron HCl 4 mg 11/10/24 19:15 Ondansetron Inj 4 Mg/2 Ml Vial IV PUSH ONCE PRN Nausea Oxycodone HCl 5 mg 11/10/24 22:36 Oxycodone Hcl (*Crx) 5 Mg Tab Ir PO Q6H PRN Pain Rated 7-10 Pantoprazole Sodium 40 mg 11/11/24 09:00 11/11/24 08:18 Pantoprazole 40 Mg Tablet PO 40 mg QAM JAYME Administration Radiology Results: ITS Impressions Abdomen/Pelvis CT 11/08/24 22:01 IMPRESSION: Small bowel obstruction secondary to herniation of small bowel into a left spigelian hernia, with possible strangulation. Focal area of hypoenhancement in the right lower pole with mild pelviectasis indication inflammatory change, consider ascending infection with pyelonephritis. Gas within the urinary bladder, correlate with any history of recent instrumentation and urinalysis. Labs Labs: Laboratory Results - last 24 hr 11/11/24 06:11 WBC 11.7 H RBC 4.05 L Hgb 12.4 Hct 38.0 MCV 93.8 MCH 30.6 MCHC 32.6 RDW 12.2 Plt Count 192 MPV 11.6 H Sodium 137 Potassium 3.9 Chloride 102 Carbon Dioxide 22 Anion Gap 13 H BUN 13 Creatinine 0.74 Estim Creat Clear Calc 65 Estimated GFR > 60 Glucose 119 H Calcium 8.6 Total Bilirubin 0.6 AST 70 H ALT 104 H Alkaline Phosphatase 185 H Total Protein 6.0 L Albumin 3.7 Quality VTE Prophylaxis VTE prophylaxis: mechanical ordered
[2024-11-11] MEDS: ATORVASTATIN 10 MG TABLET PO (09:45)
[2024-11-11] MEDS: OLMESARTAN MEDOXOMIL 20 MG TABLET PO (09:45)
--- NOTE | 2024-11-11 10:14 | WPDANESPN ---
Anes - Prog Note Post-Op Date/Time: 11/11/24 10:14 Cardiovascular status: normal Respiratory status: normal Airway patency: baseline Mental status: baseline Post-Op hydration status: normal Vital Signs: Last Vital Signs Temp 97.4 F L 11/11/24 07:54 Pulse 69 11/11/24 07:54 Resp 16 11/11/24 07:54 BP 135/75 11/11/24 07:54 Pulse Ox 95 11/11/24 07:54 O2 Del Method Room Air 11/11/24 00:11 O2 Flow Rate 2 11/10/24 22:35 Pain Score (VAS): 0/10 I/O: Intake & Output 11/10/24 11/11/24 11/11/24 23:59 07:59 15:59 Intake Total 50 100 Output Total 200 Balance -150 100 Laboratory Tests 11/11/24 06:11 11/11/24 06:11 11/11/24 06:11 WBC 11.7 H RBC 4.05 L Hgb 12.4 Hct 38.0 MCV 93.8 MCH 30.6 MCHC 32.6 RDW 12.2 Plt Count 192 MPV 11.6 H Sodium 137 Potassium 3.9 Chloride 102 Carbon Dioxide 22 Anion Gap 13 H BUN 13 Creatinine 0.74 Estim Creat Clear Calc 65 Estimated GFR > 60 Glucose 119 H Calcium 8.6 Total Bilirubin 0.6 AST 70 H ALT 104 H Alkaline Phosphatase 185 H Total Protein 6.0 L Albumin 3.7 Microbiology 11/08/24 20:15 Unspecified Urine Urine Culture - Final Klebsiella pneumoniae Post-procedural complaints: none Patient Feedback: Patient satisfied with anesthetic care.
--- NOTE | 2024-11-11 10:52 | PM.PNGS ---
Progress Note: A&P Assessment and Plan (1) SBO (small bowel obstruction): Code(s): K56.609 - Unspecified intestinal obstruction, unspecified as to partial versus complete obstruction Status: Acute Assessment and Plan: Resolved following open incarcerated left spigelian hernia repair. Advance diet as tolerated to a regular diet today and stop IV fluids. Transition to oral pain medication. She is up in the chair and tolerating activity. It is okay from a surgical standpoint to discharge the patient later today or tomorrow if she is tolerating a solid diet and her postoperative pain is controlled with oral analgesics. Follow-up with Dr. Gruber in 2 weeks. Continue wearing the abdominal binder. Lifting restrictions and postop instructions were discussed with the patient. (2) Spigelian hernia with bowel obstruction: Code(s): K43.6 - Other and unspecified ventral hernia with obstruction, without gangrene Status: Acute Assessment and Plan: As above. Plan I have discussed the patient's case and plan of care with Dr. Gruber. Subjective Subjective Date/Time Seen: 11/11/24 10:52 Post Op day: 1 (Diagnostic laparoscopy, open incarcerated left spigelian hernia with Bard soft mesh) Patient reports: feels better, tolerating liquids well, no flatus and no bowel movement Interval history: Patient has some incisional soreness that is controlled pain medication. He is still requiring IV pain medication has not tried oral analgesics yet. She is up to the chair and tolerating active. Exam Const: General: comfortable and no acute distress GI: Inspection: non-distended and incision (dry and glue intact) GI Palp: Yes Soft to palpation, Yes Tenderness to palpation present (GI) (expected tenderness near incisions), No Guarding due to palpation present (GI) and No Rebound tenderness present Auscultation: Hypoactive bowel sounds present Objective Data Vital Signs Vital Signs: Vital Signs - 24 hr 11/10/24 12:26 11/10/24 14:53 11/10/24 19:46 Temperature 99 F 96.8 F L Pulse Rate 74 80 80 Respiratory Rate 16 16 16 Blood Pressure 135/49 L 153/72 H Pulse Oximetry 95 90 90 Oxygen Delivery Room Air Oxygen Flow Rate 11/10/24 21:56 11/10/24 22:00 11/10/24 22:10 Temperature 98.8 F Pulse Rate 76 83 Respiratory Rate 18 17 Blood Pressure 104/46 L 134/61 Pulse Oximetry 96 95 99 Oxygen Delivery Simple Face Mask Simple Face Mask Simple Face Mask Oxygen Flow Rate 8 8 8 11/10/24 22:15 11/10/24 22:30 11/10/24 22:35 Temperature Pulse Rate 91 86 Respiratory Rate 14 15 Blood Pressure 124/68 143/73 H Pulse Oximetry 99 94 95 Oxygen Delivery Room Air Room Air Nasal Cannula Oxygen Flow Rate 2 11/10/24 22:48 11/10/24 23:05 11/11/24 00:11 Temperature 98.7 F 98 F Pulse Rate 85 82 Respiratory Rate 16 20 Blood Pressure 149/68 H 144/73 H Pulse Oximetry 99 97 94 Oxygen Delivery Room Air Oxygen Flow Rate 11/11/24 00:35 11/11/24 05:22 11/11/24 07:54 Temperature 98.4 F 97.7 F 97.4 F L Pulse Rate 86 80 69 Respiratory Rate 20 20 16 Blood Pressure 137/67 148/82 H 135/75 Pulse Oximetry 94 98 95 Oxygen Delivery Oxygen Flow Rate Intake/Output Intake/Output: Intake & Output 11/08/24 11/09/24 11/10/24 11/11/24 23:59 23:59 23:59 23:59 Intake Total 50 2150 2500 100 Output Total 100 200 Balance 50 2050 2300 100 Meds/Results Medications: Active Medications Generic Name Dose Route Start Last Admin Trade Name Freq PRN Reason Stop Dose Admin Acetaminophen 1,000 mg 11/10/24 22:36 Acetaminophen 500 Mg Tablet PO Q6H PRN Mild Pain (1-3) or Fever Hydrocodone Bitart/Acetaminophen 1 tab 11/10/24 22:36 Hydrocodone/Acetaminophen (*Crx) 5-325 Mg Tablet PO Q4H PRN Pain Rated 4-6 Atorvastatin Calcium 10 mg 11/11/24 09:00 11/11/24 09:45 Atorvastatin 10 Mg Tablet PO 10 mg DAILY JAYME Administration Hydromorphone HCl 1 mg 11/09/24 10:12 11/11/24 09:44 Hydromorphone Hcl Inj (*Crx) 1 Mg/Ml Syr IV PUSH 1 mg Q4H PRN Administration Pain Rated 7-10 Olmesartan 20 mg 11/11/24 09:00 11/11/24 09:45 Olmesartan Medoxomil 20 Mg Tablet PO 20 mg DAILY JAYME Administration Ondansetron HCl 4 mg 11/08/24 23:12 11/11/24 09:44 Ondansetron Inj 4 Mg/2 Ml Vial IV PUSH 4 mg Q4H PRN Administration Nausea Oxycodone HCl 5 mg 11/10/24 22:36 Oxycodone Hcl (*Crx) 5 Mg Tab Ir PO Q6H PRN Pain Rated 7-10 Pantoprazole Sodium 40 mg 11/11/24 09:00 11/11/24 08:18 Pantoprazole 40 Mg Tablet PO 40 mg QAM JAYME Administration Radiology Results: ITS Impressions Abdomen/Pelvis CT 11/08/24 22:01 IMPRESSION: Small bowel obstruction secondary to herniation of small bowel into a left spigelian hernia, with possible strangulation. Focal area of hypoenhancement in the right lower pole with mild pelviectasis indication inflammatory change, consider ascending infection with pyelonephritis. Gas within the urinary bladder, correlate with any history of recent instrumentation and urinalysis. Labs Labs: Laboratory Results - last 24 hr 11/11/24 06:11 WBC 11.7 H RBC 4.05 L Hgb 12.4 Hct 38.0 MCV 93.8 MCH 30.6 MCHC 32.6 RDW 12.2 Plt Count 192 MPV 11.6 H Sodium 137 Potassium 3.9 Chloride 102 Carbon Dioxide 22 Anion Gap 13 H BUN 13 Creatinine 0.74 Estim Creat Clear Calc 65 Estimated GFR > 60 Glucose 119 H Calcium 8.6 Total Bilirubin 0.6 AST 70 H ALT 104 H Alkaline Phosphatase 185 H Total Protein 6.0 L Albumin 3.7
[2024-11-11] MEDS: HYDROcodone/acetaminophen (*CRX) 5-325 MG TABLET 1 TAB PO ×2 (14:18→18:28)
[2024-11-11] MEDS: levoFLOXacin 750 MG TABLET PO (14:18)
[2024-11-11] MEDS: buPROPion HCL XL (24 HR) 150 MG TABCR PO (14:18)
[2024-11-11] MEDS: CELECOXIB 200 MG CAPSULE PO (14:18)
[2024-11-11] MEDS: ALPRAZolam (*CRX) 0.5 MG TABLET PO (19:50)
[2024-11-11] MEDS: oxyCODONE HCL (*CRX) 5 MG TAB IR PO (19:51)
[2024-11-12] MEDS: oxyCODONE HCL (*CRX) 5 MG TAB IR PO (01:24)
[2024-11-12] MEDS: HYDROcodone/acetaminophen (*CRX) 5-325 MG TABLET 1 TAB PO ×2 (04:12→08:17)
[2024-11-12 04:20] VITALS: BP 117/59; PULSE 83; RESP 20; TEMP 36.6; O2SAT 94
[2024-11-12 06:25] LABS: Hematocrit 35.5 % (37.0-47.0); Hemoglobin 11.4 g/dL (12.0-15.0); Mean Corpuscular HGB Conc 32.1 g/dl (32-36); Mean Corpuscular Hemoglobin 30.2 pg (26-34); Mean Corpuscular Volume 94.2 fl (80-100); Mean Platelet Volume 11.9 fl (7.4-10.4); Platelet Count Result 169 k/mm3 (150-375); Red Blood Count 3.77 M/mm3 (4.2-5.4); Red Cell Distribution Width 12.4 % (11.5-14.5); White Blood Count 7.6 K/mm3 (4.5-10.0)
[2024-11-12 06:38] LABS: Alanine Aminotransferase 69 U/L (6-35); Albumin Level 3.3 g/dL (3.5-5.1); Alkaline Phosphatase 145 U/L (38-126); Anion Gap 7 mmol/L (4-12); Aspartate Amino Transferase 41 U/L (14-36); Bilirubin,Total 0.6 mg/dL (0.2-1.3); Blood Urea Nitrogen 16 mg/dL (7-17); Calcium 8.3 mg/dL (8.4-10.2); Carbon Dioxide 28 mmol/L (22-30); Chloride 102 mmol/L (98-107); Estimated CRCL calculation 60 ml/min; Estimated Glomerular Filt Rate > 60; Glucose 104 mg/dL (65-110); Potassium 3.3 mmol/L (3.4-5.0); Sodium 137 mmol/L (137-145)
[2024-11-12] MEDS: ATORVASTATIN 10 MG TABLET PO (08:17)
[2024-11-12] MEDS: OLMESARTAN MEDOXOMIL 20 MG TABLET PO (08:17)
[2024-11-12] MEDS: CELECOXIB 200 MG CAPSULE PO (08:17)
[2024-11-12] MEDS: PANTOPRAZOLE 40 MG TABLET PO (08:17)
[2024-11-12] MEDS: buPROPion HCL XL (24 HR) 150 MG TABCR PO (08:17)
--- NOTE | 2024-11-12 11:01 | P.DS_ITS ---
DS: Admitting Diagnosis Discharge Date 11/12 Admitting Diagnosis abd pain DS: Discharge Diagnosis Discharge Diagnosis (1) Small bowel obstruction with strangulation or infarction: Status: Acute (2) UTI (urinary tract infection): Code(s): N39.0 - Urinary tract infection, site not specified Status: Acute (3) Pyelonephritis: Code(s): N12 - Tubulo-interstitial nephritis, not specified as acute or chronic Status: Acute (4) Hypertension: Code(s): I10 - Essential (primary) hypertension Status: Acute DS: Summary Hospital Course Hospital Course: 74-year-old female with past medical history of hypertension, dyslipidemia and kidney stones presents to the hospital for abdominal pain. Several issues were addressed: # SBO - CT abdomen/pelvis: SBO secondary to herniation of small bowel into a left spigelian hernia, with possible strangulation - Blood cultures obtained on 11/09: NGTD - Protonix 40 mg daily - P.r.n. Anti emetics and analgesics S/p Diagnostic laparoscopy, open incarcerated left spigelian hernia with Bard soft mesh on 11/[address] Gruber Follow up with Dr. Gruber in 2 weeks pt is tolerating diet ok, no nausea. NO bm yet, but feels like everything is working . Surgery saw her today and she was cleared for discharge. # uti - UA: cloudy appearance with 1+ protein, trace ketones, 2+ leukocytes, 51-100 WBC, and 4+ bacteria. Moderate squamous cells present so possible contamination however cocurrent pyelonephritis seen on imaging. - UC obtained on 11/09: klebsiella pneumoniae pansensitive - no previous micro to be reviewed - received Rocephin in the ED then started on zosyn for cocurrent SBO on 11/09, transitioned to levaquin on 11/11 - needs 4 more doses-last day 11/15 at 2 mp # hypokalemia k 3.2 will order po replacement and repeat K within 1 week Status at Discharge Functional status at discharge: independent ambulation Overall status at discharge: patient is progressing back to baseline Time Spent with Patient Time attestation: Total time spent providing and/or coordinating discharge services: Exam Narrative: General: female in no acute respiratory distress who is nontoxic appearing, sitting on side of bed HEENT: Normocephalic. Atraumatic. Extraocular movement intact. Sclera clear and anicteric. No facial asymmetry. Chest: Lungs are clear to auscultation bilaterally. CV: Heart was regular rate and rhythm. Abd: Abdomen was soft. Incisional pain. Abdominal binder in place. Hypoactive bowel sounds. Neuro: Patient is alert and oriented x4. Speech is clear. Const: General: comfortable and no acute distress Other: A&O x3 HENMT: Mouth: Yes moist mucous membranes Eyes: Pupils: Equal, round and reactive pupils present Neck: Neck: supple Resp: Effort & Inspection: normal respiratory effort Auscultation: clear to auscultation bilaterally Cardio: Rate: regular rate Rhythm: regular rhythm GI: Auscultation: normal bowel sounds Other: Mild distension : General: Yes bladder normal to palpation Bimanual exam- vagina & uterus: bladder normal to palpation Other: No flank pain Neuro: Cranial nerves: Yes Equal, round and reactive pupils present Motor exam (neuro): 5/5 motor strength present throughout Sensory Exam: normal sensation Extrem: General: no edema DS: Data Data Completed and Pending Pending studies at discharge: Pending at discharge 11/10/24 21:04 Surgical [PTH] Routine Labs on day of discharge: Labs from last 24 hours 11/12/24 05:20 WBC 7.6 RBC 3.77 L Hgb 11.4 L Hct 35.5 L MCV 94.2 MCH 30.2 MCHC 32.1 RDW 12.4 Plt Count 169 MPV 11.9 H Sodium 137 Potassium 3.3 L Chloride 102 Carbon Dioxide 28 Anion Gap 7 BUN 16 Creatinine 0.81 Estim Creat Clear Calc 60 Estimated GFR > 60 Glucose 104 Calcium 8.3 L Total Bilirubin 0.6 AST 41 H ALT 69 H Alkaline Phosphatase 145 H Total Protein 6.0 L Albumin 3.3 L Preliminary micro results at discharge 11/09/24 01:08 Blood Culture - Preliminary Blood 11/09/24 01:08 Blood Culture - Preliminary Blood Discharge Plan Discharge Attending physician on discharge: Quan Mckeon Consulting providers: Saida Turner; Jose Gruber Discharging Clinician: Kianna Kramer Patient Disposition: Home Activity: may shower, no straining, no driving and other - see discharge instructions Diet: regular Wound Care Instructions: incision open to air Discharge Instructions: Surgery discharge instructions * Follow-up with Dr. Gruber in 2 weeks. Call to schedule this appointment. [phone] * No lifting more than 10 lb for at least 2 weeks. Continue these lifting restrictions until you see the surgeon in the office for further instructions. * No fast or jerking movements * Walk at least 3 times daily. Stairs are okay. * No driving for 1 week or while taking narcotic pain medication * Incisions open to air. You may shower over your incisions with mild soap and water. * Pain medication has been sent electronically to the pharmacy. You may also take Tylenol and ibuprofen [id number] as needed. * Please take levaquin -antibiotic- you still need 4 more doses-last day 11/15 at 2 pm. As we discussed, f/u with PCP about your elevated liver enzymes, make sure to follow with pcp about restarting semaglutide for weight loss- as it needs to be monitored closely for proper dose increase and kidney function monitoring. Patient Instructions: Antibiotic Form Patient Language: Albanian Stand Alone Forms: General Discharge Information Follow-up/Referrals: Jose Gruber MD [Physician] - 2 Weeks Discharge Medications: New oxycodone 5 mg tablet 5 mg PO Q6H PRN (Reason: pain) Qty: 20 0RF levofloxacin 750 mg tablet 750 mg PO DAILY Qty: 4 0RF Rx Instructions: last day 11/15 at 2 pm potassium chloride [K-Tab] 20 mEq tablet extended release 20 meq PO DAILY Qty: 5 0RF No Action celecoxib 200 mg capsule 200 mg PO DAILY atorvastatin 10 mg tablet 10 mg PO DAILY alprazolam 0.5 mg tablet 0.5 mg PO BID PRN (Reason: anxiety) esomeprazole magnesium 40 mg capsule,delayed release(DR/EC) 40 mg PO DAILY olmesartan 20 mg tablet 20 mg PO DAILY bupropion HCl 150 mg tablet extended release 24 hr 150 mg PO DAILY ondansetron 4 mg tablet,disintegrating 4 mg PO Q8H PRN (Reason: nausea and vomiting) Qty: 15 0RF Other Ambulatory Orders: Basic Metabolic Panel (Routine) Timeframe: 1 Week Location: Determined by Patient Ordered By: Kianna Kramer Date of admission: 11/09/24 08:48 Primary Care Provider: Latonia, Meliton Admitting Provider: Jayda Denny Attending physician on admission: Heather Bell Condition: Stable Quality VTE Prophylaxis VTE prophylaxis: mechanical ordered Hospitalist MIPS Heart Failure (Exclusion) Patient has history of Heart Transplant or Left Ventricular Assistive Device?: No IF YES, STOP HERE Heart Failure (Qualifier) Patient has current or prior documentation of LVEF less than or equal to 40%, or mod/servere depressed LVSF?: No IF NO, STOP HERE
--- NOTE | 2024-11-12 11:07 | WPDPN ---
Progress Note: A&P Assessment and Plan (1) SBO (small bowel obstruction): Code(s): K56.609 - Unspecified intestinal obstruction, unspecified as to partial versus complete obstruction Status: Acute Assessment and Plan: Due to incarcerated left spigelian hernia. Hernia has been repair. Bowel was all viable. Small-bowel obstruction resolved. (2) Spigelian hernia with bowel obstruction: Code(s): K43.6 - Other and unspecified ventral hernia with obstruction, without gangrene Status: Acute Assessment and Plan: Repaired with mesh. Patient is doing well. She can be discharged today on oxycodone for home medications for pain. Patient to follow-up see me in the office in 2 weeks. No lifting more than 10 to 15 lb for 2 weeks. May shower but do not soak the incision under water for 2 weeks. Instructions on discharge paperwork. Subjective Date/time seen: 11/12/24 11:07 Interval history: Patient is doing well today. Postop day 2 after diagnostic laparoscopy and open incarcerated left spigelian hernia repair with mesh. Postoperative pain is much better now controlled only with oral narcotics. She is up walking around in urinating fine. Tolerated regular diet. Exam GI: Other: Abdomen is soft and nondistended. Port site incisions are healing well. Left lower quadrant open hernia repair incision healing well. Minor ecchymosis but no hematoma. No drainage. Objective Data Vital Signs Vital Signs: Vital Signs - 24 hr 11/11/24 11:56 11/11/24 16:00 11/11/24 19:55 Temperature 36.7 C 36.9 C 36.4 C L Pulse Rate 78 81 80 Respiratory Rate 18 20 20 Blood Pressure 110/89 105/40 L 108/96 H Pulse Oximetry 96 95 96 Oxygen Delivery 11/11/24 20:00 11/12/24 04:20 11/12/24 08:00 Temperature 36.6 C Pulse Rate 80 83 Respiratory Rate 20 20 Blood Pressure 117/59 L Pulse Oximetry 96 94 Oxygen Delivery Room Air Room Air Intake/Output Intake/Output: Intake & Output 11/09/24 11/10/24 11/11/24 11/12/24 23:59 23:59 23:59 23:59 Intake Total 2150 2500 580 350 Output Total 100 200 Balance 2049 2300 580 350 Meds/Results Medications: Active Medications Generic Name Dose Route Start Last Admin Trade Name Freq PRN Reason Stop Dose Admin Acetaminophen 1,000 mg 11/10/24 22:36 Acetaminophen 500 Mg Tablet PO Q6H PRN Mild Pain (1-3) or Fever Hydrocodone Bitart/Acetaminophen 1 tab 11/10/24 22:36 11/12/24 08:17 Hydrocodone/Acetaminophen (*Crx) 5-325 Mg Tablet PO 1 tab Q4H PRN Administration Pain Rated 4-6 Alprazolam 0.5 mg 11/11/24 13:33 11/11/24 19:50 Alprazolam (*Crx) 0.5 Mg Tablet PO 0.5 mg BID PRN Administration anxiety Atorvastatin Calcium 10 mg 11/11/24 09:00 11/12/24 08:17 Atorvastatin 10 Mg Tablet PO 10 mg DAILY JAYME Administration Bupropion HCl 150 mg 11/11/24 13:40 11/12/24 08:17 Bupropion Hcl Xl (24 Hr) 150 Mg Tabcr PO 150 mg DAILY JAYME Administration Celecoxib 200 mg 11/11/24 13:40 11/12/24 08:17 Celecoxib 200 Mg Capsule PO 200 mg DAILY JAYME Administration Hydromorphone HCl 1 mg 11/09/24 10:12 11/11/24 09:44 Hydromorphone Hcl Inj (*Crx) 1 Mg/Ml Syr IV PUSH 1 mg Q4H PRN Administration Pain Rated 7-10 Levofloxacin 750 mg 11/11/24 14:00 11/11/24 14:18 Levofloxacin 750 Mg Tablet PO 11/15/24 14:01 750 mg DAILY@1400 JAYME Administration Olmesartan 20 mg 11/11/24 09:00 11/12/24 08:17 Olmesartan Medoxomil 20 Mg Tablet PO 20 mg DAILY JAYME Administration Ondansetron HCl 4 mg 11/08/24 23:12 11/11/24 19:51 Ondansetron Inj 4 Mg/2 Ml Vial IV PUSH 4 mg Q4H PRN Administration Nausea Oxycodone HCl 5 mg 11/10/24 22:36 11/12/24 01:24 Oxycodone Hcl (*Crx) 5 Mg Tab Ir PO 5 mg Q6H PRN Administration Pain Rated 7-10 Pantoprazole Sodium 40 mg 11/12/24 09:00 11/12/24 08:17 Pantoprazole 40 Mg Tablet PO 12/12/24 08:59 40 mg DAILY JAYME Administration Radiology Results: ITS Impressions Abdomen/Pelvis CT 11/08/24 22:01 IMPRESSION: Small bowel obstruction secondary to herniation of small bowel into a left spigelian hernia, with possible strangulation. Focal area of hypoenhancement in the right lower pole with mild pelviectasis indication inflammatory change, consider ascending infection with pyelonephritis. Gas within the urinary bladder, correlate with any history of recent instrumentation and urinalysis. Labs Labs: Laboratory Results - last 24 hr 11/12/24 05:20 WBC 7.6 RBC 3.77 L Hgb 11.4 L Hct 35.5 L MCV 94.2 MCH 30.2 MCHC 32.1 RDW 12.4 Plt Count 169 MPV 11.9 H Sodium 137 Potassium 3.3 L Chloride 102 Carbon Dioxide 28 Anion Gap 7 BUN 16 Creatinine 0.81 Estim Creat Clear Calc 60 Estimated GFR > 60 Glucose 104 Calcium 8.3 L Total Bilirubin 0.6 AST 41 H ALT 69 H Alkaline Phosphatase 145 H Total Protein 6.0 L Albumin 3.3 L
--- NOTE | 2024-11-12 12:57 | P.OP_ITS ---
Procedure Note - Detailed Date of Procedure 11/12/24 Pre-op Diagnosis High-grade small-bowel obstruction secondary to incarcerated left spigelian hernia Post-op Diagnosis Same Procedure Performed Diagnostic laparoscopy Open repair of incarcerated left spigelian hernia with Bard soft mesh (defect=3.5 cm) Surgeon Jose Gruber MD Bilingual Account Manager EILEEN Saleh Anesthesia General Indications Patient is a 74-year-old female who presented to the emergency room with left lower abdominal pain associated with some nausea. She had a prior history kidney stones and thought she had another kidney stone. White blood cell count was normal. She was hemodynamically stable. A CT scan abdomen pelvis was done showing a loop of small bowel incarcerated within a left lateral abdominal wall spigelian hernia causing a small-bowel obstruction. The patient did not have acute surgical abdomen and there is no evidence that the incarcerated bowel was ischemic and so she was given IV antibiotics and kept NPO with a nasogastric tube placed overnight. She is being brought to the operating room now for an urgent repair of incarcerated left spigelian hernia. Findings The patient had 3.5 cm defect in the left lateral lower quadrant of the ab dominal wall. Hernia sac extended through the transversalis fascia and the internal oblique muscle but the external oblique aponeurosis was completely intact. With an open approach the defect was closed primarily and then an onlay piece of Bard soft mesh measuring 15 x 7.5 cm was placed between the closed defect and the external oblique muscle and the external oblique aponeurosis. Description of Procedure After informed consent was obtained, the patient was brought to the operating room and she was placed in the supine position and she was placed under general endotracheal anesthesia. A Aquino catheter was in place to decompress the bladder. Nasogastric tube was already in place. Now the patient clearly asleep and relaxed I palpated the left spigelian hernia and actually reduced it. The end was then prepped and draped usual sterile fashion. I then proceeded to place a 5 mm Optiview port in the left upper quadrant with a direct optical insertion. Once the side abdomen insufflated to adequate pneumoperitoneum of 15 mmHg of CO2. I then placed additional 5 mm trocar port in the right lateral abdominal wall under direct visualization. Were no adhesions to obscure my view of the spigelian hernia defect the left lower quadrant. Switching the laparoscopic over to the right-sided abdominal port site I measured the defect was about 3.5 cm in diameter. There was a small omental adhesion to the edge of the fascia and hernia sac which was divided with a laparoscopic hook. I then examined the small bowel in the area and all the small bowel completely appeared viable without any ischemia. The loop that was incarcerated was carefully examined and there was no perforation or any reason to suggest that it would need to be resected. Since the defect was small and the size ago had convert to to lay complete the open left spigelian hernia repair. I then made an oblique incision in the left lower quadrant of the abdominal wall overlying the hernia sac. Dissection was carried down through the subcu tissues and I encountered the external oblique aponeurosis which was intact. I then incised distally and also the lateral cautery along the direction of its fibers until I encountered the hernia sac bulging up through the defect of the internal oblique and transversalis fascia spread and then opened the hernia sac and the pneumoperitoneum released. I then turned off the CO2 and removed the lap scope in the abdomen. I then with a combination of cautery and blunt finger dissection the external oblique aponeurosis from the underlying internal oblique muscle fibers. Once I felt had adequate space to place a wide overlapping pieces of mesh on top of the internal oblique muscle I then proceeded to close the defect utilizing a running 0 nonabsorbable V lock suture. The defect closed very nicely. There was no tension. I then used a piece of Bard soft mesh and cut it down to a size of 15 x 7.5 cm. This was then placed over the closed defect and then secured in an onlay fashion onto the internal oblique muscle fibers was some interrupted 2-0 Vicryl sutures. I then irrigated out the incision sterile saline solution. Hemostasis was good. Then closed the external oblique aponeurosis over the mesh utilizing a running 2-0 absorbable V lock suture. I then area at subcu tissues tear just saline solution. Hemostasis was good. I then injected local anesthetic mixture consisting of 1% lidocaine was with 0.5% Marcaine around the incision. The incision was then closed eliciting interrupted 3-0 Vicryl sutures the subcu tissues. The skin edges then closure was a running subcuticular 4-0 Monocryl suture. The 2 small 5 mm port site holes were then closed at the skin level using a 4-0 Monocryl suture. All the incisions were cleaned and then skin glue was applied. The patient tolerated the procedure well no complications. All sponges, needles, and instrument counts were correct at the end procedure. EBL was _20_cc. The patient was awakened and taken to recovery in stable and satisfactory condition. Implants Bard soft mesh measuring 15 x 7.5 cm Placed an onlay fashion onto the Internal oblique muscle fibers and over the closed defect but underneath the external oblique aponeurosis. Estimated Blood Loss 20 Drains No Packing No Pathology Yes ( hernia sac sent to pathology) Complications No immediate complications Condition Stable Disposition PACU
== END 2024-11-12 12:35 | disposition home or self-care (01) | DRG 354 ==
LOC: ANHED 20:34 → ANH3MEDSUR 23:57
PROVIDERS: Emergency Medicine; Student in an Organized Health Care Education/Training Program; Surgery; Admitting Provider General Practice; Emergency Provider Student in an Organized Health Care Education/Training Program; Visit Provider Nurse Practitioner
PROC: 0WUF0JZ Supplement Abdominal Wall with Synthetic Substitute, Open Approach (ICD-10-PCS; principal; 2024-11-10 12:30)
DX: K43.6 Other and unspecified ventral hernia with obstruction, without gangrene (principal); K56.609 Unspecified intestinal obstruction, unspecified as to partial versus complete obstruction; N12 Tubulo-interstitial nephritis, not specified as acute or chronic; N39.0 Urinary tract infection, site not specified; I10 Essential (primary) hypertension; B96.1 Klebsiella pneumoniae [K. pneumoniae] as the cause of diseases classified elsewhere; Z96.653 Presence of artificial knee joint, bilateral; Z87.442 Personal history of urinary calculi
CPT/HCPCS: 36415; 74177; 80053; 81001; 83605; 83690; 83735; 85025; 85027; 85610; 86850; 86900; 86901; 87040; 87086; 87186; 88302; 96365; 96367; 96375; 96376; 99285; A9270; C1781; G0378; J0696; J1100; J1171; J2003; J2004; J2405; J2470; J2543; J2704; J3010; J7120; Q9967

== ENCOUNTER 2024-11-24 11:49 | Outpatient (CLI) | payer MEDICARE, SELFPAY ==
[2024-11-24 12:39] LABS: Anion Gap 10 mmol/L (4-12); Blood Urea Nitrogen 22 mg/dL (7-17); Calcium 8.7 mg/dL (8.4-10.2); Carbon Dioxide 26 mmol/L (22-30); Chloride 108 mmol/L (98-107); Estimated Glomerular Filt Rate > 60; Glucose 132 mg/dL (65-110); Potassium 3.4 mmol/L (3.4-5.0); Sodium 144 mmol/L (137-145)
--- OUTSIDE RECORDS SUMMARY | 2024-11-24 13:36 | XMS_ITS | Clinical Summary ---
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 Gender Identity Not on file Sexual Orientation Not on file Obstetrics History Last Filed Vital Signs Vital Sign Reading Time Taken Comments Blood Pressure 128/79 02/19/2024 10:10 AM CDT Pulse 71 02/19/2024 10:10 AM CDT Temperature 36.6 C (97.8 F) 02/19/2024 10:10 AM CDT Respiratory Rate 21 08/07/2023 2:40 PM AUTOMOBILE BODY REPAIR SUPERVISOR Oxygen Saturation 95% 02/19/2024 10:10 AM CDT [...] 2024 07/15/2022, 07/22/2021, 11/09/2020, Additional history exists Fall Risk Assessment 08/07/2024 08/07/2023 Influenza Vaccine (Season Ended) 2025 07/15/20 22, 05/06/2014 Insurance [facility] MEDICARE UHC MEDICARE ADVANTAGE [employer] MEDICARE [facility] MEDIC[facility] Address: [address] [place] [address] Care Teams Circuits Engineer Relationship Specialty Start Date End Date Meliton Lincoln MD [address] [place] [address] PCP - General Internal Medicine 08/23/23
--- OUTSIDE RECORDS SUMMARY | 2024-11-24 13:36 | XMS_ITS | Encounter Summary ---
Author Organization [facility] Address [facility] [place] [address] Care Team Providers Care Industrial Pharmacist Name Role Phone Meliton Lincoln MD Primary Care Provider [phone] Vandana Shah MD Unavailable Unavailab le Meliton Lincoln MD Unavailable [phone] Meliton Lincoln MD Unavailable [phone] Encounter Details Date Type Department Care Team (Late st Contact Info) Description 01/28/[address] [facility] Conversion [address] [facility] [place] [address] , Generic Conversion, Social History Tobacco Use Types Packs/Day Years Used Date Smoking Tobacco: Never Assessed Comments Unknown Sex and Gender Information Value Date Recorded Sex Assigned at Not on file Legal Sex Female 6:13 PM CDT Gender Identity Not on file Sexual Orientation Not on file documented as of this encounter Plan of Treatment Not on file documented as of this encounter Visit Diagnoses Not on filedocumented in this encounter Additional Health Concerns Infection Onset Date Last Indicated Resolved Time COVID-19 Rule Out 09/13/2020 09/13/2020 09/14/2020 4:41 PM OPTICAL LAB TECHNICIAN COVID-19 Rule Out 07/18/2022 07/18/2022 07/18/2022 11:44 AM OPTICAL LAB TECHNICIAN Influenza - Seasonal 07/18/2022 07/18/2022 023 12:34 AM OPTICAL LAB TECHNICIAN documented as of this encounter Care Teams Industrial Pharmacist Relationship Specialty Start Date End Date Meliton Lincoln MD [address] [place] [address] PCP - General INTERNAL MEDICINE 11/12/17 Meliton Lincoln MD [address] [place] [address] PCP - [facility] Attributed Provider 06/10/19 11/05/19 Meliton Lincoln MD [address] [place] [address] PCP - [facility] Attributed Provider 12/05/19 Vandana Shah MD [address] [place] [address] CARDIOVASCULAR DISEASE 11/12/17 documented as of this encounter
--- OUTSIDE RECORDS SUMMARY | 2024-11-24 13:36 | XMS_ITS | Referral Summary ---
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 Gender Identity Not on file Sexual Orientation Not on file Last Filed Vital Signs Vital Sign Reading Time Taken Comments Blood Pressure 128/79 02/19/2024 10:10 AM CDT Pulse 71 02/19/2024 10:10 AM CDT Temperature 36.6 C (97.8 F) 02/19/2024 10:10 AM CDT Respiratory Rate 21 08/07/2023 2:40 PM REHAB THERAPY MANAGER Oxygen Saturation 95% 02/19/2024 10:10 AM CDT Inhaled Oxygen Concentration - - Weight 100 kg (220 lb 8 oz) 02/19/2024 10:10 AM CDT Height 162.6 cm (5' 4 ) 02/19/2024 10:10 AM CDT Body Mass Index 37.85 02/19/2024 10:10 AM CDT Plan of Treatment Not on file Insurance [facility] Address: [address] [place] [address] [facility] MED[facility] Address: [address] [address] [place] [address] [facility] Address: [address] [place] [address] Care Teams Nursery Worker Relationship Specialty Start Date End Date Meliton Lincoln MD [facility] [place] [address] PCP - General Internal Medicine 08/23/23
--- OUTSIDE RECORDS SUMMARY | 2024-11-24 13:36 | XMS_ITS | Encounter Summary ---
Author Organization [facility] Address [facility] [place] [address] Care Team Providers Care Supervisor Cd Area Name Role Phone Meliton Lincoln MD Primary Care Provider [phone] Vandana Shah MD Unavailable Unavailab le Meliton Lincoln MD Unavailable [phone] Encounter Details Date Type Department Care Team (Late st Contact Info) Description 01/26/2023 Prep for Procedure [facility] Medical [facility] Multispecialty [address] [facility] [address] [place] [phone] Jarad Royal MD [address] [place] [address] [address] [place] [address] Social History Tobacco Use Types Packs/Day Years Used Date Smoking Tobacco: Never Smokeless Tobacco: Never Comments:never Alcohol Use Standard Drinks/Week Comments Yes 11.7 (1 standard dri nk = 0.6 oz pure alcohol) occasional, less than weekly AUDIT-C Answer Date Recorded Q1: How often do you have a drink containing alc ohol? Never 09/13/2020 Average Number of Drinks Not on file 021 Frequency of Binge Drinking Not on file 03/2021 PHQ-2 Answer Date Recorded Patient Health Questionnaire-2 Score 0 01/09/2023 Comments No Sex and Gender Information Value Date Recorded Sex Assigned at Not on file Legal Sex Female 6:13 PM CDT Gender Identity Not on file Sexual Orientation Not on file COVID-19 Exposure Response Date Recorded In the last 10 days, have yo u been in contact with someone who was confirmed or suspected to have Coronavirus/COVID-19? No / Unsure 01/09/2023 7:52 AM CDT documented as of this encounter Functional Status * RETIRED Are you deaf or do you have serious difficulty hearing Answer Date of Assessment Author Status No 09/16/2020 8:48 PM STEWARD/STEWARDESS NIGHT Activ e * RETIRED Are you blind or do you have serious difficulty seeing, even when wearing glasses? Answer Date of Assessment Author Status No 09/16/2020 8:48 PM STEWARD/STEWARDESS NIGHT Activ e * Do you have serious difficulty walking or climbing stairs? Answer Date of Assessment Author Status No 09/16/2020 8:48 PM Katlin Parekh RN Active * Do you have difficulty dressing or bathing? Answer Date of Assessment Author Status No 09/16/2020 8:48 PM Katlin Parekh RN Active * Because of a physical, mental, or emotional condition, do you have difficulty doing errands alone such as visiting a doctor's office or shopping? Answer Date of Assessment Author Status No 09/16/2020 8:48 PM Katlin Parekh RN Active documented as of this encounter Mental Status * Because of a physical, mental, or emotional condition, do you have serious difficulty concentrating, remembering, or making decisions? Answer Entry Date Author Status No 09/16/2020 8:48 PM Katlin Parekh RN Active documented in this encounter Plan of Treatment Not on file documented as of this encounter Visit Diagnoses Diagnosis Mammary hypoplasia- Primary Hypoplasia of breast Encounter for cosmetic surgery Other plastic surgery for unacceptable cosmetic appearance documented in this encounter Care Teams Supervisor Cd Area Relationship Specialty Start Date End Date Meliton Lincoln MD [address] [place], [place] PCP - General INTERNAL MEDICINE 11/12/17 Meliton [place] MD [address] [place], [place] PCP - Med Group - [facility] Attributed Provider 12/05/19 Vandana Shah MD [address] [place] [address] CARDIOVASCULAR DISEASE 11/12/17 documented as of this encounter
--- OUTSIDE RECORDS SUMMARY | 2024-11-24 13:36 | XMS_ITS | Clinical Summary ---
Author Organization [facility] Address [address] [place] [address] Care Team Providers Care Stage Producer Name Role Phone Yoel [place] MD Primary Care Provider [phone] Vandana Shah MD Unavailable Unavailab le Yoel [place] MD Unavailable [phone] Allergies Active Allergy Reactions Criticality Noted Date Comments Penicillins Rash Low 08/31/2020 Medications ALPRAZolam 0.5 MG tablet Take 1 tablet (0.5 mg total) by mouth daily as needed for Anxiety. 04/21/20 20 Active atorvastatin 10 MG tabletIndications:H yperlipidemia Take 1 tablet (10 mg total) by mouth daily. Indications: High Amount of Fats in the Blood 07/23/20 20 Active esomeprazole 40 MG capsuleIndications: Nonerosive Gastroesophagel Reflux Disease Take 1 capsule (40 mg total) by mouth daily. Indications: Nonerosive GERD 07/23/20 20 Active olmesartan 20 MG tabletIndications:H ypertension Take 1 tablet (20 mg total) by mouth daily. Indications: High Blood Pressure Disorder 07/23/20 20 Active Biotin w/ Vitamins C & E (HAIR/SKIN/NAILS OR)Indications:supp lement Take 1 tablet by mouth daily. Indications: supplement Active Bioflavonoid Products (BIOFLEX OR)Indications:supp lement Take 1 tablet by mouth daily. Indications: supplement Active NON FORMULARYIndication s:supplement Take 1 tablet by mouth daily. Indications: supplement Airborne Active Multiple Vitamin (MULTIVITAMIN ADULT OR)Indications:supp lement Take 1 tablet by mouth daily. Indications: supplement Active Zinc Sulfate (ZINC-220 OR)Indications:supp lement Take 1 tablet by mouth daily. Indications: supplement Active celecoxib 200 MG capsuleIndications: Arthritis Take 1 capsule (200 mg total) by mouth daily. Indications: Arthritis 09/20/19 21 Active albuterol sulfate HFA 108 (90 Base) MCG/ACT inhaler Inhale 2 puffs into the lungs every 4 (four) hours as needed for Shortness of breath. 10/01/19 Active buPROPion XL (WELLBUTRIN XL) 150 MG 24 hr tabletIndications:D epression Take 1 tablet (150 mg total) by mouth every morning. Indications: Depression 06/06/20 Active Apoaequorin (PREVAGEN) 10 MG CapIndications:supp lement Take 1 capsule by mouth daily. Indications: supplement Active Elderberry 500 MG CapIndications:supp lement Take 1 capsule by mouth daily. Indications: supplement Active Cyanocobalamin (VITAMIN B-12) 5000 MCG SL TabIndications:supp lement Place 1 tablet under the tongue daily. Indications: supplement Active semaglutide (OZEMPIC) 2 mg/dose injection (PEN) Inject 2 mg into the skin once a week. Active HYDROcodone-acetami nophen (NORCO) 5-325 MG tabletIndications:A cute Pain < 3 Day Supply Take 1-2 tablets by mouth every 4 (four) hours as needed for Pain. 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 Overview (01/29/2023): Added automatically from request for surgery [id number] Encounter for cosmetic surgery 01/29/2023 Overview (01/29/2023): Added automatically from request for surgery [id number] Right kidney stone 09/16/2020 Nephrolithiasis 09/16/2020 Resolved Problems Problem Noted Date Diagnosed Date Resolved Date Basal cell carcinoma of scal p and skin of neck 08/15/2022 08/23/2022 Overview (08/15/2022): Added automatically from request for surgery [id number] Family History Medical History Relation Comments Colon Cancer Maternal Aunt Relation Status Comments Father Maternal Aunt Alive Mother Alive Social History Tobacco Use Types Packs/Day Years Used Date Smoking Tobacco: Never Smokeless Tobacco: Never Tobacco Cessation:Counseling Given: Not Answered Comments:never Alcohol Use Standard Drinks/Week Comments Yes [...] Sign Reading Time Taken Comments Blood Pressure 113/70 05/08/2023 2:25 PM CDT Pulse 73 05/08/2023 2:25 PM CDT Temperature 36.1 C (97 F) 05/08/2023 2:25 PM CDT Respiratory Rate 20 05/08/2023 2:25 PM CDT Oxygen Saturation 97% 05/08/2023 2:25 PM CDT Inhaled Oxygen Concentration - - Weight 87.5 kg (193 lb) 05/08/2023 11:22 AM CDT Height 160 cm (5' 3 ) 05/08/2023 11:22 AM CDT Body Mass Index 34.19 05/08/2023 11:22 AM CDT Plan of Treatment Health Maintenance Due Date Last Done Comments Colorectal Cancer Screening Colonoscopy (10 Years) 1952 Hepatitis C 1970 DTaP, Tdap and Td Vaccines ( 1 - Tdap) 1971 Zoster Vaccines (1 of 2) 2002 Pneumococcal Vaccine: 50+ Years (2 of 2 - PCV) 05/31/2006 05/31/2005 Annual Medicare Wellness Visit 2017 Dexa Scan (General) 2017 COVID-19 Vaccine (4 - 2023-2 5 season) 2024 07/22/2021, 11/09/2020, 10/12/2020 PHQ-2 (Physician [place]) 08/06/2024 01/09/2023 Mammogram Screening 01/31/2025 01/31/2023 RSV Immunization or 60+ Years (1 - 1-dose 75+ series) 2027 Meningococcal B Vaccine Aged Out No l onger eligible based on patient's age to complete this topic Meningococcal Vaccine Aged Out No truong negrita eligible based on patient's age to complete this topic RSV Immunizations Under 20 Months Aged Out No longer eligible b ased on patient's age to complete this topic Medical Devices Implanted Type Area Boiler Room Helper Device Identifier Shelf Expiration Date Model / Serial / Lot Stent Ureteral [place] Sci Contour Vl 6fr X 22-30cm - [id number] Implanted:Qty: 1 on 09/16/2020 by Yogi Woods MD at [facility] Stent [place] Reeher UJVENCIO 05/28/2023 [id number] / / [id number] Total Knee Replacement Michael Iol Explanted Type Area Boiler Room Helper Device Identifier Shelf Expiration Date Model / Serial / Lot Urinary Stent Explanted:Qty: 1 on 09/16/2020 at [facility] Procedures Procedure Name Priority Date/Time Associated Diagnosis Comments MG SCREENING W GIO MICHAEL DIGI Routine 01/31/2023 8:03 AM CDT Visit for screening mammogram from Last 3 Months or Most Recently Relevant to Health Maintenance Results * MG SCREENING W GIO MICHAEL DIGI (01/31/2023 8:03 AM CDT) Anatomical Region Laterality Modality Breast Bilateral Mammography 01/31/2023 3:38 PM CDT Narrative 01/31/2023 3:39 PM CDT Examination: BILATERAL SCREENING MAMMOGRAM Exam Date: 01/31/2023 7:59 AM Clinical Indication: 72 years of age female routine screening. No personal or family history of breast cancer. Comparison: Mammograms dating back to None. Technique: Digital CC and MLO views. Tomosynthesis imaging acquisition. Study read with the assistance of a computer-aided detection system. Tissue density:There are scattered areas of fibroglandular density. Findings: Similar fibroglandular pattern demonstrating asymmetric dense patches bilaterally. Benign-appearing calcifications and axillary lymph nodes. No suspicious masses, malignant appearing calcifications, skin thickening or other abnormalities are present. No findings of concern with computer-assisted software. IMPRESSION: No features to suggest malignancy. In the absence of clinical symptoms, return for annual screening due in one year. Recommendation: Routine Screening Bilateral. Assessment: ACR BI-RADS 2 - BENIGN FINDING(S) Ordered By: YOEL LINCOLN Interpreted By: Andrew Burnham DO, 01/31/2023 3:38 PM Yoel [place] MD MAMMO Final Result from Last 3 Months or Most Recently Relevant to Health Maintenance Insurance [employer] Advance Directives * Full Code (Latest Code Status on File) Date Activated Date Inactivated Comments 09/16/2020 6:50 PM 09/17/2020 1:13 PM Care Teams Stage Producer Relationship Specialty Start Date End Date Yoel [place] MD [address] [place], [place] PCP - General INTERNAL MEDICINE 11/12/17 Yoel [place] MD [address], [place] PCP - Med Group - [facility] Attributed Provider 12/05/19 Vandana Shah MD [address] [place] [address] CARDIOVASCULAR DISEASE 11/12/17
--- OUTSIDE RECORDS SUMMARY | 2024-11-24 13:36 | XMS_ITS | Encounter Summary ---
Author Organization [facility] Address [facility] [place] [address] Care Team Providers Care Geophysical Prospecting Surveyor Name Role Phone Meliton [place] MD Primary Care Provider [phone] Vandana Shah MD Unavailable Unavailab le Meliton [place] MD Unavailable [phone] Meliton [place] MD Unavailable [phone] Encounter Details Date Type Department Care Team (Late st Contact Info) Description 01/11/[address] [facility] [address] [facility] [place] [place] [address] , Generic Conversion, Social History Tobacco Use [...] Rule Out 09/13/2020 09/13/2020 09/14/2020 4:41 PM ADVERTISING DESIGNER COVID-19 Rule Out 07/18/2022 07/18/2022 07/18/2022 11:44 AM ADVERTISING DESIGNER Influenza - Seasonal 07/18/2022 07/18/2022 023 12:34 AM ADVERTISING DESIGNER documented as of this encounter Care Teams Geophysical Prospecting Surveyor Relationship Specialty Start Date End Date Meliton [place] MD [address] [place] [address] PCP - General INTERNAL MEDICINE 11/12/17 Meliton [place] MD [address] [place] [address] PCP - Med Group - [facility] Attributed Provider 06/10/19 11/05/19 Meliton [place] MD [address] [place] [address] PCP - Med Group - [facility] Attributed Provider 12/05/19 Vandana Shah MD [address] [place] [address] CARDIOVASCULAR DISEASE 11/12/17 documented as of this encounter
== END 2024-11-24 11:50 | disposition home or self-care (01) ==
PROVIDERS: Referring Provider Surgery; Visit Provider Nurse Practitioner
DX: E87.6 Hypokalemia (principal)
CPT/HCPCS: 36415; 80048

== ENCOUNTER 2025-01-03 14:20 | Emergency (ER) | payer MEDICARE, SELFPAY ==
--- NOTE | 2025-01-03 14:40 | ED_ITS ---
HPI - Ear Problem General Chief complaint: Ear Stated complaint: EARACHE Time Seen by Provider: 01/03/25 14:41 Source: patient, RN notes reviewed and old records reviewed Mode of arrival: ambulatory Limitations: no limitations History of Present Illness HPI Narrative: 74-year-old female presents to the [facility] with a right-sided earache, decreased hearing since yesterday. Reports that she is normally allergic to her family members [place] however she did see the dog yesterday. Started with slight cough which has resolved after using an inhaler. States that she started with right ear discomfort. Did take ibuprofen and DayQuil. Related Data Home Medications ?Medication ?Instructions ?Recorded ?Confirmed ?Last Taken ?Type alprazolam 0.5 mg tablet 0.5 mg PO BID PRN anxiety 11/08/24 12/10/24 Unknown History atorvastatin 10 mg tablet 10 mg PO DAILY 11/08/24 12/10/24 Unknown History bupropion HCl 150 mg 24 hr tablet, 150 mg PO DAILY 11/08/24 12/10/24 Unknown History extended release celecoxib 200 mg capsule 200 mg PO DAILY 11/08/24 12/10/24 Unknown History esomeprazole magnesium 40 mg 40 mg PO DAILY 11/08/24 12/10/24 Unknown History capsule,delayed release olmesartan 20 mg tablet 20 mg PO DAILY 11/08/24 12/10/24 Unknown History Allergies Allergy/AdvReac Type Severity Reaction Status Date / Time Penicillins Allergy Unknown Verified 12/04/24 15:18 Review of Systems Review of Systems: All systems reviewed & are unremarkable except as noted in HPI and below Constitutional: Constitutional: Reports no additional constitutional complaint s ENT: Reports as per HPI Cardiovascular: Cardiovascular: Reports no additional cardiovascular complaints, Denies chest pain and Denies dyspnea Respiratory: Respiratory: Reports no additional respiratory complaints, Denies chest congestion, Denies cough and Denies dyspnea Musculoskeletal: Musculoskeletal: Reports no additional musculoskeletal complaints Integumentary/Breasts: Skin/Breast: Reports system reviewed and no additional complaints, except as docu PMFSH Past Medical History Medical History GERD (gastroesophageal reflux disease) BHAVYA (obstructive sleep apnea) Hypertension History of renal stone Surgical History Surgical History 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 Gruber History of bilateral knee replacement History of colonoscopy last performed approximately 2001 History of genitourinary surgical procedure lift with Dr Parson Social History Social History (Updated 12/04/24 @ 15:27 by Mendez Colin MA) Smoking status: Never smoker Alcohol intake: current Drinks per week: 1 Substance use: current Other substance usage details: marijuana gummies Do You Feel Safe in your Home?: Yes Lack of Transportation: No Lack of Food: Never True Current Housing: I Have Housing Concerned About Future Housing: Decline to Answer Difficulty Paying Gas/Electric Bills: Decline to Answer Difficulty Paying for Meds: No Currently Unemployed: No Education: Associate Degree Difficulty w/ Childcare or Family Care: Decline to Answer Spiritual care concerns: No Comments At the time of my signature, I reviewed and agree with the nursing past medical, surgical, social, and family history. There is no relevant family history pertinent to the patient complaint. Exam Const: General: cooperative, healthy appearing, comfortable, no acute distress, well developed, alert and well nourished Nutritional Appearance: well nourished Orientation/consciousness: patient oriented x3 Limitations: no limitations HENMT: Head: normal to inspection Ears: hearing grossly normal bilaterally, external ears normal, TM normal on the left, mastoids normal, no periauricular adenopathy, Abnormal EAC present excessive cerumen on the right; no erythema, no edema and no EA tenderness and unable to visualize TM on the right Face/Nose/Sinus: Normal external nose present Face and sinus: normal facial exam, sinuses nontender and face symmetric Mouth: Yes Normal oral and palatal mucosa present, Yes lip normal, Yes tongue normal and Yes moist mucous membranes Eyes: General: appearance normal, both eyes and all related structures Alignment and Position: alignment normal Neck: Neck: normal visual inspection, full ROM, no lymphadenopathy and no meningeal signs Chest: Chest palpation & inspection: normal inspection of the chest Resp: Effort & Inspection: normal respiratory effort and able to speak in complete sentences Auscultation: clear to auscultation bilaterally, no crackles, no rales, no rhonchi and no wheezes Cardio: Rate: regular rate Skin: General skin exam: normal color and no rashes or lesions noted Neuro: General: patient oriented x3, gait normal, moves all extremities and no meningeal signs Cognition (Neuro): normal cognition Speech: normal speech Gait exam (Neuro): Normal gait present Extrem: General: normal to inspection, full ROM, capillary refill normal and normal gait Psych: Appearance: grossly normal and well kempt Mental Status: mental status grossly normal Speech and movement: Normal speech and movement present and Clear speech present Affect: normal affect Attitude: cooperative Course Course Level of Care: Express Care Visit Vital Signs Vital signs: Vital Signs Temperature 98.1 F 01/03/25 14:41 Pulse Rate 64 01/03/25 14:41 Respiratory Rate 16 01/03/25 14:41 Blood Pressure 143/81 H 01/03/25 14:41 Pulse Oximetry 98 01/03/25 14:41 Temperature 97.9 F 01/03/25 15:09 Pulse Rate 63 01/03/25 15:09 Respiratory Rate 18 01/03/25 15:09 Blood Pressure 161/95 H 01/03/25 15:09 Pulse Oximetry 99 01/03/25 15:09 Reviewed Procedures Ear Wax Removal Right Ear: Ear Wax Removal Date: 01/03/25 Ear Wax Removal Time: 15:10 Cerumenolytic Used: other (peroxide water) Results: Re-examined: other ( cerumen remains) Patient Tolerated Procedure: other Complications: vertigo/dizziness Additional Comments: procedure explained to patient. Verbal consent obtained. Started irrigating, patient verbalize she has became dizzy, stopped procedure, vitals obtained. Patient had no loss of consciousness. He remained alert and oriented. Medical Decision Making MDM Narrative Medical decision making narrative: Patient sitting comfortably in exam room. Nontoxic, vitals stable. Patient in no acute distress Patient presents for right ear discomfort. Attempted to remove earwax. Patient became extremely dizzy when attempting, small amount of cerumen removed. Patient recovered from being dizzy. Vitals stable Patient appropriate for outpatient treatment and follow-up Discharge instructions reviewed with patient, as well as provided in writing per nursing staff. The instructions also include specific and strict return/GO TO THE ER as well as f/u information. All questions have been answered, and the patient deny any further questions with discharge and discharge plan. Some parts of this dictation were generated by voice recognition software and may contain typographical and/or grammatical inaccuracies. Medical Records Medical records reviewed: Yes I reviewed the external patient's medical records. Vital Signs Vital Signs: Vital Signs Temperature 98.1 F 01/03/25 14:41 Pulse Rate 64 01/03/25 14:41 Respiratory Rate 16 01/03/25 14:41 Blood Pressure 143/81 H 01/03/25 14:41 Pulse Oximetry 98 01/03/25 14:41 Temperature 97.9 F 01/03/25 15:09 Pulse Rate 63 01/03/25 15:09 Respiratory Rate 18 01/03/25 15:09 Blood Pressure 161/95 H 01/03/25 15:09 Pulse Oximetry 99 01/03/25 15:09 Reviewed Lab Data Lab results reviewed: Yes I reviewed the patient's lab results. Labs: Reviewed Critical Care Time Critical Care Time Critical Care Time: No Discharge Plan Discharge Clinical Impression: Impacted cerumen of right ear Patient Disposition: Home Condition: Stable Instructions: Antibiotic Form, How to Use Ear Drops (ED) Additional Instructions: You had Cerumen (EAR wax impaction). Do not use Q-tips or put anything in the ear. This can damage the ear. Instead , use Debrox or ear wax remover. Place 5 drops in ear after a hot shower and place a warm compress over the ear for 20 minutes. alternate doing this every 3-4 days. It will break up the wax gently. Do not use too much pressure. take Claritin/ Zyrtec /Misa daily Once you have all of the cerumen out of your ears, you may do preventative treatment to prevent this from happening again. Use 5 drops once weekly after a hot shower. Patient Language: Brazilian Prescriptions: No Action celecoxib 200 mg capsule 200 mg PO DAILY atorvastatin 10 mg tablet 10 mg PO DAILY alprazolam 0.5 mg tablet 0.5 mg PO BID PRN (Reason: anxiety) esomeprazole magnesium 40 mg capsule,delayed release(DR/EC) 40 mg PO DAILY olmesartan 20 mg tablet 20 mg PO DAILY bupropion HCl 150 mg tablet extended release 24 hr 150 mg PO DAILY potassium chloride [K-Tab] 20 mEq tablet extended release 20 meq PO DAILY Qty: 5 0RF Follow-up/Referrals: Camden Alford MD [Physician] - 1 Week (Right ear wax impaction) PHYSICIAN,LAMINATING MACHINE OPERATOR HELPER [Primary Care Provider] - Time of Disposition: 15:13
[2025-01-03 14:41] VITALS: BP 143/81; PULSE 64; RESP 16; TEMP 36.7; O2SAT 98
[2025-01-03] MEDS: HYDROGEN PEROXIDE 3% SOLN(*SP) 473 ML BOTTLE 120 ML IRRIGATION (15:05)
[2025-01-03 15:09] VITALS: BP 161/95; PULSE 63; RESP 18; TEMP 36.6; O2SAT 99
--- NOTE | 2025-01-03 15:18 | PC.NURSE ---
1507 Called to room by provider, patient became dizzy with ear irrigation, sitting erect in the chair, able to have a valid conversation with staff. VS taken and recorded.
--- NOTE | 2025-01-03 15:20 | PC.NURSE ---
1515 Patient states she is feeling better; ambulated from armless chair to chair with arms-reports slight lightheadedness when she stood up; taking sips of her orange soda. Instructed to stay seated.
--- NOTE | 2025-01-03 15:31 | PC.NURSE ---
1525Patient reports she feels better; provider Topper, GEOPHYSICAL PROSPECTING PERMIT AGENT went into check patient and OK for discharge.
== END 2025-01-03 15:30 | disposition home or self-care (01) ==
PROVIDERS: Emergency Provider Nurse Practitioner
DX: H61.21 Impacted cerumen, right ear (principal); I10 Essential (primary) hypertension
CPT/HCPCS: 69209; 99212; A9270; G0463

== ENCOUNTER 2025-02-05 16:31 | Outpatient (CLI) | payer MEDICARE, SELFPAY ==
--- OUTSIDE RECORDS SUMMARY | 2025-02-05 16:35 | XMS_ITS | Encounter Summary ---
Author Organization [facility] Address [facility] [place] [address] Care Team Providers Care Web Editor Name Role Phone Meliton [place] MD Primary Care Provider [phone] Vandana Shah MD Unavailable Unavailab le Meliton [place] MD Unavailable [phone] Encounter Details Date Type Department Care Team (Late st Contact Info) Description 01/26/2023 Prep for Procedure [facility] Medical [facility] Multispecialty [address] [facility] [address] [place] [phone] Jarad Royal MD [address] [place] [address] [address] [place] [address] Social History Tobacco Use Types Packs/Day Years [...] Assessment Author Status No 09/16/2020 8:48 PM DECK SCALER Activ e * RETIRED Are you blind or do you have serious difficulty seeing, even when wearing glasses? Answer Date of Assessment Author Status No 09/16/2020 8:48 PM DECK SCALER Activ e * Do you have serious [...] appearance documented in this encounter Care Teams Web Editor Relationship Specialty Start Date End Date Meliton [place] MD [address], [place] PCP - General INTERNAL MEDICINE 11/12/17 Meliton [place] MD [address] [place], [place] PCP - Med Group - [facility] Attributed Provider 12/05/19 Vandana Shah MD [address] [place] [address] CARDIOVASCULAR DISEASE 11/12/17 documented as of this encounter
--- OUTSIDE RECORDS SUMMARY | 2025-02-05 16:35 | XMS_ITS | Clinical Summary ---
Author Organization [facility] Address [address] [place] [address] Care Team Providers Care Trip Motor Operator Name Role Phone Meliton Lincoln MD Primary Care Provider [phone] Allergies Active Allergy Reactions Criticality Noted Date [...] on file Legal Sex Female 10:29 PM BUTT MAKER Gender Identity Not on file Sexual Orientation Not on file Obstetrics History Last Filed Vital Signs Vital Sign Reading Time Taken Comments Blood Pressure 128/79 02/19/2024 10:10 AM CDT Pulse 71 02/19/2024 10:10 AM CDT Temperature 36.6 C (97.8 F) 02/19/2024 10:10 AM CDT Respiratory Rate 21 08/07/2023 2:40 PM BUTT MAKER Oxygen Saturation 95% 02/19/2024 10:10 AM CDT Inhaled Oxygen Concentration - - Weight 100 kg (220 lb 8 oz) 02/19/2024 10:10 AM CDT Height 162.6 cm (5' 4) 02/19/2024 10:10 AM CDT Body Mass Index [...] (Season Ended) 2025 07/15/20 22, 05/06/2014 Insurance [facility] MEDICARE UHC MEDICARE ADVANTAGE [facility] MED[facility] Address: [address] [address] [place] [address] [employer] MEDICARE Care Teams Trip Motor Operator Relationship Specialty Start Date End Date Meliton Lincoln MD [address] [place] [address] PCP - General Internal Medicine 08/23/23
--- OUTSIDE RECORDS SUMMARY | 2025-02-05 16:35 | XMS_ITS | Clinical Summary ---
Author Organization [facility] Address [address] [place] [address] Care Team Providers Care Director Critical Care Name Role Phone Yoel Lincoln MD Primary Care Provider [phone] Vandana Shah MD Unavailable Unavailab le Yoel Lincoln MD Unavailable [phone] Allergies Active Allergy Reactions Criticality Noted Date [...] (01/29/2023): Added automatically from request for surgery [id number] Encounter for cosmetic surgery 01/29/2023 Overview (01/29/2023): Added automatically from request for surgery [id number] Right kidney stone 09/16/2020 Nephrolithiasis 09/16/2020 Resolved Problems Problem Noted Date Diagnosed Date Resolved Date Basal cell carcinoma of scal p and skin of neck 08/15/2022 08/23/2022 Overview (08/15/2022): Added automatically from request for surgery [id number] Family History Medical History Relation Comments Colon [...] 11:22 AM CDT Height 160 cm (5' 3) 05/08/2023 11:22 AM CDT Body Mass Index [...] season) 2024 07/22/2021, 11/09/2020, 10/12/2020 PHQ-2 (Physician [place]) 08/06/2024 Mammogram Screening 01/31/2025 01/31/2023 RSV Immunization or [...] this topic Medical Devices Implanted Type Area Window Shade Cloth Sewer Device Identifier Shelf Expiration Date Model / Serial / Lot Stent Ureteral [place] Sci Contour Vl 6fr X 22-30cm - [id number] Implanted:Qty: 1 on 09/16/2020 by Yogi Woods MD at [facility] Stent [place] [employer] JUVENCIO 05/28/2023 [id number] / / [id number] Total Knee Replacement Michael Iol Explanted Type Area Window Shade Cloth Sewer Device Identifier Shelf Expiration Date Model / Serial / Lot Urinary Stent Explanted:Qty: 1 on 09/16/2020 at [facility] Procedures Procedure Name Priority Date/Time Associated Diagnosis [...] 6:50 PM 09/17/2020 1:13 PM Care Teams Director Critical Care Relationship Specialty Start Date End Date Yoel Lincoln MD [address] [place] [address] PCP - General INTERNAL MEDICINE 11/12/17 Yoel Lincoln MD [address], [place] PCP - Med Group - [facility] Attributed Provider 12/05/19 Vandana Shah MD [address] [place] [address] CARDIOVASCULAR DISEASE 11/12/17
--- OUTSIDE RECORDS SUMMARY | 2025-02-05 16:35 | XMS_ITS | Encounter Summary ---
Author Organization [facility] Address [id number] [place] [address] Care Team Providers Care Improvement Engineer Name Role Phone Meliton Lincoln MD Primary Care Provider [phone] Vandana Shah MD Unavailable Unavailab le Meliton Lincoln MD Unavailable [phone] Meliton Lincoln MD Unavailable [phone] Encounter Details Date Type Department Care Team (Late st Contact Info) Description 01/11/[address] [facility] Conversion [address] [facility] [place] [address] , Generic Conversion, Social History Tobacco Use [...] Rule Out 09/13/2020 09/13/2020 09/14/2020 4:41 PM TIRE FABRIC INSPECTOR COVID-19 Rule Out 07/18/2022 07/18/2022 07/18/2022 11:44 AM TIRE FABRIC INSPECTOR Influenza - Seasonal 07/18/2022 07/18/2022 023 12:34 AM TIRE FABRIC INSPECTOR documented as of this encounter Care Teams Improvement Engineer Relationship Specialty Start Date End Date Meliton Lincoln MD [address] [place] [address] PCP - General INTERNAL MEDICINE 11/12/17 Meliton Lincoln MD [address] [place] [address] PCP - Med Group - [facility] Attributed Provider 06/10/19 11/05/19 Meliton Lincoln MD [address] [place] [address] PCP - Med Group - [facility] Attributed Provider 12/05/19 Vandana Shah MD [address] [place] [address] CARDIOVASCULAR DISEASE 11/12/17 documented as of this encounter
--- OUTSIDE RECORDS SUMMARY | 2025-02-05 16:35 | XMS_ITS | Referral Summary ---
Author Organization [facility] Address [address] [place] [address] Care Team Providers Care Tube Maker Name Role Phone Mleiton Lincoln MD Primary Care Provider [phone] Allergies Active Allergy Reactions Criticality Noted Date [...] on file Legal Sex Female 10:29 PM PROJECT MANAGER RETAIL Gender Identity Not on file Sexual Orientation Not on file Last Filed Vital Signs Vital Sign Reading Time Taken Comments Blood Pressure 128/79 02/19/2024 10:10 AM CDT Pulse 71 02/19/2024 10:10 AM CDT Temperature 36.6 C (97.8 F) 02/19/2024 10:10 AM CDT Respiratory Rate 21 08/07/2023 2:40 PM PROJECT MANAGER RETAIL Oxygen Saturation 95% 02/19/2024 10:10 AM CDT Inhaled Oxygen Concentration - - Weight 100 kg (220 lb 8 oz) 02/19/2024 10:10 AM CDT Height 162.6 cm (5' 4) 02/19/2024 10:10 AM CDT Body Mass Index 37.85 02/19/2024 10:10 AM CDT Plan of Treatment Not on file Insurance [employer] MEDICARE [facility] MEDIC[facility] Address: [address] [place] [address] [facility] Care Teams Tube Maker Relationship Specialty Start Date End Date Meliton Lincoln MD [facility] [place] [address] PCP - General Internal Medicine 08/23/23
--- OUTSIDE RECORDS SUMMARY | 2025-02-05 16:35 | XMS_ITS | Encounter Summary ---
Author Organization [facility] Address [facility] [place] [address] Care Team Providers Care Safety And Skill Based Pay Manager Name Role Phone Meliton Lincoln MD Primary Care Provider [phone] Vandana Shah MD Unavailable Unavailab le Meliton Lincoln MD Unavailable [phone] Meliton Lincoln MD Unavailable [phone] Encounter Details Date Type Department Care Team (Late st Contact Info) Description 01/28/[address] Conversion [address] [facility] [place] [address] , Generic Conversion, Social History Tobacco Use [...] Rule Out 09/13/2020 09/13/2020 09/14/2020 4:41 PM STUDENT SUCCESS COACH COVID-19 Rule Out 07/18/2022 07/18/2022 07/18/2022 11:44 AM STUDENT SUCCESS COACH Influenza - Seasonal 07/18/2022 07/18/2022 023 12:34 AM STUDENT SUCCESS COACH documented as of this encounter Care Teams Safety And Skill Based Pay Manager Relationship Specialty Start Date End Date Meliton Lincoln MD [address] [place] [address] PCP - General INTERNAL MEDICINE 11/12/17 Meliton Lincoln MD [address] [place] [address] PCP - Med Group - [facility] Attributed Provider 06/10/19 11/05/19 Meliton Lincoln MD [address] [place] [address] PCP - Med Group - [facility] Attributed Provider 12/05/19 Vandana Shah MD [address] [place] [address] CARDIOVASCULAR DISEASE 11/12/17 documented as of this encounter
--- NOTE | 2025-02-05 16:37 | ECG_ITS ---
Test Date: 2025-02-05 16:45:43 Measurements Intervals [place] Rate: 74 P: 37 NV: 148 QRS: 16 QRSD: 98 T: 10 QT: 389 QTc: 432 Interpretive Statements SINUS RHYTHM No previous ECG available for comparison Electronically Signed On 02-05-2025 16:55:34 CDT by Ken Sebastian
== END 2025-02-05 16:32 | disposition home or self-care (01) ==
LOC: ANHCARD 16:34
PROVIDERS: Visit Provider Anesthesiology
DX: Z01.818 Encounter for other preprocedural examination (principal); E78.5 Hyperlipidemia, unspecified; I10 Essential (primary) hypertension
CPT/HCPCS: 93005

== ENCOUNTER 2025-02-10 08:54 | Day surgery (SDC) | payer MEDICARE, SELFPAY ==
[2025-01-29 08:31] VITALS: BMI 38.6
[2025-02-03 08:28] VITALS: BMI 38.7
--- NOTE | 2025-02-10 07:53 | WPDHPUPDATE1 ---
History and Physical Update Update Date/Time: 02/10/25 07:53 History and Physical has been reviewed, including an updated exam of the patient. There are NO changes in the patient's condition. Risks, benefits, and alternatives have been discussed and questions answered. Patient agrees to proceed with procedure.
--- OUTSIDE RECORDS SUMMARY | 2025-02-10 09:03 | XMS_ITS | Clinical Summary ---
Author Organization [facility] Address [address] [place] [address] Care Team Providers Care Machine Rebuilder Name Role Phone Yoel Lincoln MD Primary Care Provider [phone] Vandana Shah MD Unavailable Unavailab le Yoel Lincoln MD Unavailable [phone] Allergies Active Allergy Reactions Criticality Noted Date [...] (01/29/2023): Added automatically from request for surgery [id number] Encounter for cosmetic surgery 01/29/2023 Overview (01/29/2023): Added automatically from request for surgery [id number] Right kidney stone 09/16/2020 Nephrolithiasis 09/16/2020 Resolved Problems Problem Noted Date Diagnosed Date Resolved Date Basal cell carcinoma of scal p and skin of neck 08/15/2022 08/23/2022 Overview (08/15/2022): Added automatically from request for surgery [id number] Family History Medical History Relation Comments Colon [...] season) 2024 07/22/2021, 11/09/2020, 10/12/2020 PHQ-2 (Physician [place]) 08/06/2024 Mammogram Screening 01/31/2025 01/31/2023 RSV Immunization [...] this topic Medical Devices Implanted Type Area Carpenter Wooden Tank Erecting Device Identifier Shelf Expiration Date Model / Serial / Lot Stent Ureteral [place] Sci Contour Vl 6fr X 22-30cm - [id number] Implanted:Qty: 1 on 09/16/2020 by Yogi Woods MD at [facility] Stent [place] [employer] JUVENCIO 05/28/2023 [id number] / / [id number] Total Knee Replacement Michael Iol Explanted Type Area Carpenter Wooden Tank Erecting Device Identifier Shelf Expiration Date Model / Serial / Lot Urinary Stent Explanted:Qty: 1 on 09/16/2020 at [facility] Procedures Procedure Name Priority Date/Time Associated Diagnosis [...] 6:50 PM 09/17/2020 1:13 PM Care Teams Machine Rebuilder Relationship Specialty Start Date End Date Yoel Lincoln MD [address] [place] [address] PCP - General INTERNAL MEDICINE 11/12/17 Yoel Lincoln MD [address], [place] PCP - Med Group - [facility] Attributed Provider 12/05/19 Vandana Shah MD [address] [place] [address] CARDIOVASCULAR DISEASE 11/12/17
--- OUTSIDE RECORDS SUMMARY | 2025-02-10 09:03 | XMS_ITS | Encounter Summary ---
Author Organization [facility] Address [facility] [place] [address] Care Team Providers Care Voucher Clerk Name Role Phone Meliton Lincoln MD Primary Care Provider [phone] Vandana Shah MD Unavailable Unavailab le Meliton Lincoln MD Unavailable [phone] Encounter Details Date Type Department Care Team (Late st Contact Info) Description 01/26/2023 Prep for Procedure [facility] Medical [facility] [address] [facility] [address] [place] [phone] Jarad Royal MD [address] [place] [address] [address] [place] [address] Social History Tobacco Use Types Packs/Day Years [...] Assessment Author Status No 09/16/2020 8:48 PM NETEZZA DEVELOPER Activ e * RETIRED Are you blind or do you have serious difficulty seeing, even when wearing glasses? Answer Date of Assessment Author Status No 09/16/2020 8:48 PM NETEZZA DEVELOPER Activ e * Do you have serious [...] appearance documented in this encounter Care Teams Voucher Clerk Relationship Specialty Start Date End Date Meliton Lincoln MD [address] [place], [place] PCP - General INTERNAL MEDICINE 11/12/17 Meliton Lincoln MD [address] [place], [place] PCP - Med Group - [facility] Attributed Provider 12/05/19 Vandana Shah MD [address] [place] [address] CARDIOVASCULAR DISEASE 11/12/17 documented as of this encounter
--- OUTSIDE RECORDS SUMMARY | 2025-02-10 09:03 | XMS_ITS | Encounter Summary ---
Author Organization [facility] Address [facility] [place] [address] Care Team Providers Care Dispersion Mixer Name Role Phone Meliton Lincoln MD Primary Care Provider [phone] Vandana Shah MD Unavailable Unavailab le Meliton Lincoln MD Unavailable [phone] Meliton Lincoln MD Unavailable [phone] Encounter Details Date Type Department Care Team (Late st Contact Info) Description 01/11/[address] Conversion [address] [facility] [address] , Generic Conversion, Social History Tobacco Use [...] Rule Out 09/13/2020 09/13/2020 09/14/2020 4:41 PM TAPE RULES PRINTING MACHINE OPERATOR COVID-19 Rule Out 07/18/2022 07/18/2022 07/18/2022 11:44 AM TAPE RULES PRINTING MACHINE OPERATOR Influenza - Seasonal 07/18/2022 07/18/2022 023 12:34 AM TAPE RULES PRINTING MACHINE OPERATOR documented as of this encounter Care Teams Dispersion Mixer Relationship Specialty Start Date End Date Meliton Lincoln MD [address] [place] [address] PCP - General INTERNAL MEDICINE 11/12/17 Meliton Lincoln MD [address] [place] [address] PCP - Med Group - [facility] Attributed Provider 06/10/19 11/05/19 Meliton Lincoln MD [address] [place] [address] PCP - Med Group - [facility] Attributed Provider 12/05/19 Vandana Shah MD [address] [place] [address] CARDIOVASCULAR DISEASE 11/12/17 documented as of this encounter
--- OUTSIDE RECORDS SUMMARY | 2025-02-10 09:03 | XMS_ITS | Encounter Summary ---
Author Organization [facility] Address [facility] [place] [address] Care Team Providers Care Engine Watchman Name Role Phone Meliton Lincoln MD Primary Care Provider [phone] Vandana Shah MD Unavailable Unavailab le Meliton Lincoln MD Unavailable [phone] Meliton Lincoln MD Unavailable [phone] Encounter Details Date Type Department Care Team (Late st Contact Info) Description 01/28/[address] [facility] Conversion [address] [facility] [place] [address] , Generic Conversion, Social History Tobacco Use [...] Rule Out 09/13/2020 09/13/2020 09/14/2020 4:41 PM MELTER CLERK COVID-19 Rule Out 07/18/2022 07/18/2022 07/18/2022 11:44 AM MELTER CLERK Influenza - Seasonal 07/18/2022 07/18/2022 023 12:34 AM MELTER CLERK documented as of this encounter Care Teams Engine Watchman Relationship Specialty Start Date End Date Meliton Lincoln MD [address] [place] [address] PCP - General INTERNAL MEDICINE 11/12/17 Meliton Lincoln MD [address] [place] [address] PCP - Med Group - [facility] Attributed Provider 06/10/19 11/05/19 Meliton Lincoln MD [address] [place] [address] PCP - Med Group - [facility] Attributed Provider 12/05/19 Vandana Shah MD [address] [place] [address] CARDIOVASCULAR DISEASE 11/12/17 documented as of this encounter
--- NOTE | 2025-02-10 09:56 | WPDANESEPPF ---
Anes - Initial Pre Proc Eval Procedure: Operation Date: 02/10/25 10:30 Proposed Procedures p Right Myringotomy with Insertion of Tube - Christian Cedeno MD Date/Time: 02/10/25 09:56 Surgeon: Christian Cedeno MD Pre Op Diagnosis: Otitis Media, Impacted Cerumen Patient Data Age: 74 Gender: F Height: 1.63 m Weight: 102.2 kg Allergies Allergy/AdvReac Type Severity Reaction Status Date / Time Penicillins Allergy Rash Verified 02/10/25 09:20 Home Medications ?Medication ?Instructions ?Recorded ?Confirmed ?Type alprazolam 0.5 mg tablet 0.5 mg PO BID PRN anxiety 11/08/24 02/03/25 History atorvastatin 10 mg tablet 10 mg PO DAILY 11/08/24 02/03/25 History bupropion HCl 150 mg 24 hr tablet, 150 mg PO DAILY 11/08/24 02/03/25 History extended release celecoxib 200 mg capsule 200 mg PO DAILY 11/08/24 02/03/25 History esomeprazole magnesium 40 mg 40 mg PO DAILY 11/08/24 02/03/25 History capsule,delayed release olmesartan 20 mg tablet 20 mg PO DAILY 11/08/24 02/03/25 History ascorbic acid (vitamin C) 500 mg 500 mg PO DAILY 02/03/25 02/03/25 History capsule cholecalciferol (vitamin D3) 25 25 mcg PO DAILY 02/03/25 02/03/25 History mcg (1,000 unit) capsule (Vitamin D3) cyanocobalamin (vitamin B-12) 1,000 mcg PO DAILY 02/03/25 02/03/25 History 1,000 mcg capsule elderberry fruit 200 mg capsule 200 mg PO DAILY 02/03/25 02/03/25 History fexofenadine 180 mg tablet 180 mg PO DAILY 02/03/25 02/03/25 History (Misa Allergy) magnesium 500 mg tablet 500 mg PO DAILY 02/03/25 02/03/25 History cgsiicig-ouak-xhcb 8 mg-folic 400 1 tablet PO DAILY 02/03/25 02/03/25 History mcg-K 50 mcg-lutein 300 mcg tablet (Century Women 50 Plus) zinc 50 mg tablet 50 mg PO DAILY 02/03/25 02/03/25 History Patient hx anesthesia problems: none Family hx anesthesia problems: none Results Review: All pre-operative results and documents have been reviewed as part of the pre-operative evaluation. 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 Gruber History of bilateral knee replacement History of colonoscopy last performed approximately 2001 History of genitourinary surgical procedure lift with Dr Parson Social History Social History Smoking status: Never smoker Second hand tobacco smoke exposure: Yes Alcohol intake: current Drinks per week: 1 Substance use: current Substance use type: marijuana Other substance usage details: nightly Do You Feel Safe in your Home?: Yes Lack of Transportation: No Lack of Food: Never True Current Housing: I Have Housing Concerned About Future Housing: Decline to Answer Difficulty Paying Gas/Electric Bills: Decline to Answer Difficulty Paying for Meds: No Currently Unemployed: No Education: Associate Degree Difficulty w/ Childcare or Family Care: Decline to Answer Living arrangements: alone Spiritual care concerns: No Anes - Eval Final PreProcedure Day of Procedure 02/10/25 09:56 Heart: regular rate and rhythm Lungs: clear to auscultation Airway: Mallampati scale class II Neurological: alert and oriented Last oral intake: >/= 8 hours ASA classification: II Emergent: no Anesthetic plan: proceed Anesthesia type and monitoring: general Other findings: BHAVYA Results Review: All pre-operative results and documents have been reviewed as part of the pre-operative evaluation. Informed Consent: The patient's anesthetic plan and its attendant risks and benefits were discussed with the patient/family/POA. Questions were solicited and answers provided to the satisfaction of the patient/family/POA.
[2025-02-10] MEDS: LACTATED RINGERS 1,000 ML 30 ML IV CONT (10:04)
[2025-02-10 10:05] VITALS: BP 149/65; PULSE 61; RESP 18; TEMP 36.9; O2SAT 98
[2025-02-10] MEDS: CIPROFLOXACIN HCL 0.3% OP SOLN 2.5 ML BTL 4 DROP EACH EAR (10:56)
[2025-02-10 11:03] VITALS: BP 123/63; PULSE 65; RESP 16; O2SAT 94
--- NOTE | 2025-02-10 11:13 | W.PM.PROC2 ---
Procedure Note - Detailed Date of Procedure 02/10/25 Pre-op Diagnosis Otitis Media, Impacted Cerumen Post-op Diagnosis Same Procedure Performed Right-sided myringotomy with tube insertion Surgeon Christian Cedeno MD Anesthesia General Indications See above Findings Severely retracted TM tube inserted no fluid a scant fluid I should say drops placed patient tolerated everything well. Description of Procedure Patient identified consent verified the preoperative holding area. Patient brought to the operative. Patient marni. General anesthesia induced mask ventilation maintained. Patient prepped draped position procedure confirmed 2nd time-out performed. Right-sided viewed myringotomy made scant fluid suctioned out tube placed patient tolerated the entire everything very well drops were placed as well no complications patient taken to PACU. Estimated Blood Loss 0 Drains No Packing No Pathology None sent Complications No immediate complications Condition Stable Disposition PACU [facility] Billing Surgery - Charge Forward: Surgery Billing
[2025-02-10 11:30] VITALS: BP 130/74; PULSE 61; RESP 18; O2SAT 94
== END 2025-02-10 11:35 | disposition home or self-care (01) ==
PROVIDERS: Visit Provider Otolaryngology
PROC: (CPT 69436; principal; 2025-02-10 10:30)
DX: H66.91 Otitis media, unspecified, right ear (principal); H61.21 Impacted cerumen, right ear
CPT/HCPCS: 69436; J7342

== ENCOUNTER 2025-07-28 10:20 | Observation (INO) | payer MEDICARE, SELFPAY ==
[2025-07-28] VITALS (29 sets, daily range): BP systolic 104–165; BP diastolic 43–133; PULSE 54–67; RESP 11–30; TEMP 36.6–36.8; O2SAT 94–100; BMI 38.2
--- NOTE | ~2025-07-28 | XR_ITS ---
EXAMINATION: XR chest 2V DATE: 07/28/2025 11:09 INDICATION: Chest pain TECHNIQUE: PA and lateral views of the chest were obtained. COMPARISON: None FINDINGS: The lungs are clear with no focal airspace opacities, pulmonary edema, pleural effusion or pneumothorax. Arch size is normal. Small hiatal hernia. Cholecystectomy clips in right upper quadrant. Mild S-shaped curvature of the thoracic spine with mild spondylosis. Moderate to severe spondylosis the visua lized upper lumbar spine. Atherosclerotic aorta. IMPRESSION: 1. No acute cardiopulmonary disease. 2. Small hiatal hernia. Reviewed, dictated and finalized at location A. MANAGER
--- NOTE | 2025-07-28 10:21 | ECG_ITS ---
Test Date: 2025-07-28 10:27:27 Measurements Intervals [place] Rate: 64 P: 35 FL: 166 QRS: 9 QRSD: 97 T: 12 QT: 390 QTc: 403 Interpretive Statements SINUS RHYTHM CONSIDER INFERIOR INFARCT, AGE INDETERMINATE BASELINE ARTIFACT- I, II, III, AVR, AVL, AVF ABNORMAL ECG Compared to ECG 02/05/2025 16:45:43 No significant changes Electronically Signed On 07-28-2025 10:42:53 FACT CHECKER by Ren Murray D.O.
[2025-07-28 10:37] LABS: Hematocrit 41.7 % (37.0-47.0); Hemoglobin 13.8 g/dL (12.0-15.0); Immature Granulocyte Percent A 0.2 % (0-0.5); Lymphocytes Absolute Auto 1.47 K/mm3 (0.9-3.2); Mean Corpuscular HGB Conc 33.1 g/dl (32-36); Mean Corpuscular Hemoglobin 30.3 pg (26-34); Mean Corpuscular Volume 91.4 fl (80-100); Nucleated Red Blood Cells Absolute Auto 0.000 K/mm3 (0.0-0.012); Nucleated Red Blood Cells Perc 0.0 % (0.0-0.2); Platelet Count Result 218 k/mm3 (150-375); Red Blood Count 4.56 M/mm3 (4.2-5.4); White Blood Count 6.2 K/mm3 (4.5-10.0)
[2025-07-28 10:55] LABS: Alanine Aminotransferase 22 U/L (6-35); Albumin Level 4.0 g/dL (3.5-5.1); Alkaline Phosphatase 80 U/L (38-126); Anion Gap 7 mmol/L (4-12); Aspartate Amino Transferase 30 U/L (14-36); Bilirubin,Total 0.5 mg/dL (0.2-1.3); Blood Urea Nitrogen 18 mg/dL (7-17); Calcium 9.2 mg/dL (8.4-10.2); Carbon Dioxide 25 mmol/L (22-30); Chloride 108 mmol/L (98-107); Estimated CRCL calculation 68 ml/min; Estimated Glomerular Filt Rate > 60; Glucose 138 mg/dL (65-110); Lipase 106 U/L (23-300); Potassium 3.8 mmol/L (3.4-5.0); Sodium 140 mmol/L (137-145); Total Protein 7.0 g/dL (6.3-8.2)
--- OUTSIDE RECORDS SUMMARY | 2025-07-28 10:57 | XMS_ITS | Clinical Summary ---
Author Organization [facility] Address [address] [place] [address] Care Team Providers Care Radio Reporter Name Role Phone Meliton Lincoln MD Primary Care Provider [phone] Allergies Active Allergy Reactions Criticality Noted Date [...] on file Legal Sex Female 10:29 PM SAWYER CORK SLABS Gender Identity Not on file Sexual Orientation Not on file Last Filed Vital Signs Vital Sign Reading Time Taken Comments Blood Pressure 128/79 02/19/2024 10:10 AM CDT Pulse 71 02/19/2024 10:10 AM CDT Temperature 36.6 C (97.8 F) 02/19/2024 10:10 AM CDT Respiratory Rate 21 08/07/2023 2:40 PM SAWYER CORK SLABS Oxygen Saturation 95% 02/19/2024 10:10 AM CDT [...] 2017 Breast Cancer Screening-Mammogram 02/01/2024 023, 01/31/2023 Fall Risk Assessment 08/07/2024 08/07/2023 Covid-19 Vaccine (2024-09 6 season) 2025 07/15/2022, 07/22/2021, 11/09/2020, Additional history exists Influenza Vaccine (#1) 2025 07/15/2022, 2013 Insurance [facility] MEDICARE UHC MEDICARE ADVANTAGE [employer] MEDICARE Care Teams Radio Reporter Relationship Specialty Start Date End Date Meliton Lincoln MD [address] [place], [place] [address] PCP - General Internal Medicine 08/23/23
[2025-07-28 11:00] LABS: INR 1.0; Prothrombin Time 13.0 Seconds (11.1-14.7)
[2025-07-28 11:01] LABS: Partial Thromboplastin Time 25.0 Seconds (22.3-36.8)
[2025-07-28 11:02] LABS: Troponin I < 0.012 ng/mL (0.000-0.034)
--- NOTE | 2025-07-28 12:20 | ED.CHESTPAIN ---
HPI - Chest Pain General Chief Complaint: Chest Pain Stated Complaint: chest pain Time Seen by Provider: 07/28/25 12:19 Source: patient Mode of arrival: ambulatory Limitations: no limitations History of Present Illness HPI narrative: 75 years old white female came to the ED by car from home complaining of left chest weird feeling started last night at rest, steady, this morning radiating to left upper extremity. Patient denies aggravating or relieving factors, pain comes in waves, 6/10, currently still 6. Patient report a lot of stress going on in her life in the last few days which could be causing her symptoms, no improvement on Xanax. History of hypertension hyperlipidemia father had a heart attack at age 50, mother have history of cardiac problems. Patient does not smoke or drink, uses marijuana to help her stress. Related Data Home Medications ?Medication ?Instructions ?Recorded ?Confirmed ?Last Taken ?Type alprazolam 0.5 mg tablet 0.5 mg PO BID PRN anxiety 11/08/24 07/28/25 07/28/25 History atorvastatin 10 mg tablet 10 mg PO DAILY 11/08/24 07/28/25 07/28/25 History bupropion HCl 150 mg 24 hr tablet, 150 mg PO DAILY 11/08/24 07/28/25 07/28/25 History extended release celecoxib 200 mg capsule 200 mg PO DAILY 11/08/24 07/28/25 07/28/25 History esomeprazole magnesium 40 mg 40 mg PO DAILY 11/08/24 07/28/25 07/28/25 History capsule,delayed release olmesartan 20 mg tablet 20 mg PO DAILY 11/08/24 07/28/25 07/28/25 History ascorbic acid (vitamin C) 500 mg 500 mg PO DAILY 02/03/25 07/28/25 07/28/25 History capsule cholecalciferol (vitamin D3) 25 25 mcg PO DAILY 02/03/25 07/28/25 07/28/25 History mcg (1,000 unit) capsule (Vitamin D3) cyanocobalamin (vitamin B-12) 1,000 mcg PO DAILY 02/03/25 07/28/25 07/28/25 History 1,000 mcg capsule elderberry fruit 200 mg capsule 200 mg PO DAILY 02/03/25 07/28/25 07/28/25 History fexofenadine 180 mg tablet 180 mg PO DAILY 02/03/25 07/28/25 07/28/25 History (Misa Allergy) magnesium 500 mg tablet 500 mg PO DAILY 02/03/25 07/28/25 07/28/25 History txvggpum-eloo-rrjy 8 mg-folic 400 1 tablet PO DAILY 02/03/25 07/28/25 07/28/25 History mcg-K 50 mcg-lutein 300 mcg tablet (Century Women 50 Plus) zinc 50 mg tablet 50 mg PO DAILY 02/03/25 07/28/25 07/28/25 History Allergies Allergy/AdvReac Type Severity Reaction Status Date / Time Penicillins Allergy Rash Verified 07/28/25 19:39 Review of Systems Review of Systems: All systems reviewed & are unremarkable except as noted in HPI and below PMFSH Past Medical History Medical History GERD (gastroesophageal reflux disease) BHAVYA (obstructive sleep apnea) Hypertension History of renal stone Surgical History Surgical History 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 Gruber History of bilateral knee replacement History of colonoscopy last performed approximately 2001 History of genitourinary surgical procedure lift with Dr Parson Family History Family History (Updated 07/28/25 @ 19:42 by Roshni Wayne RN) Father Heart disease Cerebrovascular accident Mother Hypertension Social History Social History Smoking status: Never smoker Second hand tobacco smoke exposure: No Alcohol intake: current Drinks per week: 1 Substance use: current Substance use type: marijuana Other substance usage details: nightly Last use: 07/28/25 Lack of Transportation: No Lack of Food: Never True Current Housing: I Have Housing Concerned About Future Housing: No Difficulty Paying Gas/Electric Bills: No Difficulty Paying for Meds: No Currently Unemployed: No Education: Associate Degree Difficulty w/ Childcare or Family Care: No Living arrangements: alone Spiritual care concerns: No Exam Narrative: General appearance: Well-developed, well-nourished Skin: Normal color Head: Normocephalic, nontraumatic Eyes: Clear conjunctiva ENT: Oropharynx normal, ears normal, nose normal Neck: Supple, nontender Chest and respiratory: Airway patent, no respiratory distress, no accessory muscle use Heart: Regular rate/rhythm Abdomen: Soft, nontender, no organomegaly, quiet bowel sounds Vascular: Normal peripheral pulses, normal capillary refill. Musculoskeletal: Normal range of motion, nontender back Neurologic: Alert and oriented ?3, COLLET GLUER is normal as tested, no gross motor deficit Course Vital Signs Vital signs: Vital Signs Temperature 36.6 C 07/28/25 10:23 Pulse Rate 64 07/28/25 10:23 Respiratory Rate 16 07/28/25 10:23 Blood Pressure 154/77 H 07/28/25 10:23 Pulse Oximetry 97 07/28/25 10:23 Oxygen Delivery Room Air 07/28/25 10:23 Temperature 36.7 C 07/28/25 20:13 Pulse Rate 65 07/28/25 22:00 Respiratory Rate 18 07/28/25 20:13 Blood Pressure 130/85 07/28/25 20:13 Pulse Oximetry 96 07/28/25 20:13 Oxygen Delivery Room Air 07/28/25 20:00 [facility] Narrative Medical decision making narrative: PATIENT CAME TO THE ED WITH CHEST PAIN RADIATING TO LEFT UPPER EXTREMITY AND A LOT OF STRESS LATELY VITAL SIGNS ARE STABLE PHYSICAL EXAMINATION UNREMARKABLE DIFFERENTIAL DIAGNOSIS INCLUDE ANXIETY LIKE SYMPTOMS, CORONARY ARTERY DISEASE, PNEUMONIA, PLEURAL EFFUSION BLOOD WORKUP TODAY INCLUDES CBC, CMP, LIPASE, TROPONIN SHOWED INSIGNIFICANT ABNORMALITY CHEST X-RAY SHOWED NO ACUTE ABNORMALITY EKG SHOWED NORMAL SINUS RHYTHM CARDIAC SCORE IS 5 ADMIT TO HOSPITALIST DIAGNOSIS CHEST PAIN Differential Diagnosis Differential Diagnosis: ABOVE Medical Records I have reviewed the following patient records and this information was taken into consideration when formulating the assessment and plan.: previous ER visits Lab Data [facility] Lab Attestation statement: I personally reviewed the patient's lab results. 07/28/25 10:31 07/28/25 10:31 Labs: Lab Results 07/28/25 07/28/25 Range/Units 10:31 13:27 WBC 6.2 (4.5-10.0) K/mm3 RBC 4.56 (4.2-5.4) M/mm3 Hgb 13.8 (12.0-15.0) g/dL Hct 41.7 (37.0-47.0) % MCV 91.4 (80-100) fl MCH 30.3 (26-34) pg MCHC 33.1 (32-36) g/dl RDW 13.1 (11.5-14.5) % Plt Count 218 (150-375) k/mm3 MPV 11.0 H (7.4-10.4) fl Immature Gran % (Auto) 0.2 (0-0.5) % Neut % (Auto) 60.6 (45.5-73.1) % Lymph % (Auto) 23.8 (18.3-44.2) % Hawkins % (Auto) 8.4 (2.6-8.5) % Eos % (Auto) 6.0 H (0-4.4) % Baso % (Auto) 1.0 (0.2-1.2) % Lymph # (Auto) 1.47 (0.9-3.2) K/mm3 Hawkins # (Auto) 0.5 (0.1-0.6) K/mm3 Eos # (Auto) 0.4 H (0-0.3) K/mm3 Baso # (Auto) 0.1 (0.0-0.1) K/mm3 Abs Immat Gran (auto) 0.01 (0.00-0.031) K/mm3 Absolute Neuts (auto) 3.8 (1.3-6.7) K/mm3 Absolute Nucleated RBC 0.000 (0.0-0.012) K/mm3 Nucleated RBC % 0.0 (0.0-0.2) % PT 13.0 (11.1-14.7) Seconds INR 1.0 APTT 25.0 (22.3-36.8) Seconds Sodium 140 (137-145) mmol/L Potassium 3.8 (3.4-5.0) mmol/L Chloride 108 H (98-107) mmol/L Carbon Dioxide 25 (22-30) mmol/L Anion Gap 7 (4-12) mmol/L BUN 18 H (7-17) mg/dL Creatinine 0.76 (0.7-1.0) mg/dL Estim Creat Clear Calc 68 ml/min Estimated GFR > 60 (59 - ) Glucose 138 H (65-110) mg/dL Calcium 9.2 (8.4-10.2) mg/dL Total Bilirubin 0.5 (0.2-1.3) mg/dL AST 30 (14-36) U/L ALT 22 (6-35) U/L Alkaline Phosphatase 80 (38-126) U/L Troponin I < 0.012 < 0.012 (0.000-0.034) ng/mL Total Protein 7.0 (6.3-8.2) g/dL Albumin 4.0 (3.5-5.1) g/dL Lipase 106 (23-300) U/L Imaging Data Radiologist's impression: ITS Impressions Chest X-Ray 07/28/25 11:25 IMPRESSION: 1. No acute cardiopulmonary disease. 2. Small hiatal hernia. ECG Data EKG #1: Attestation: I personally reviewed and interpreted this ECG as follows: ECG completion date: 07/28/25 Interpretation: Normal sinus rhythm at 64 beats per minute, consider inferior myocardial infarction, age indeterminate, baseline artifact, abnormal EKG, compared to EKG on March 04, 2025 no significant changes Critical Care Time Critical Care Time Critical Care Time: No Discharge Plan Discharge Clinical Impression: Chest pain, Anxiety Patient Disposition: Still a Patient Condition: Stable Quality HEART score for chest pain patients History: moderately suspicious ECG: normal Age: > or = to 65 years Risk factors: > or = to 3 risk factors of atherosclerotic disease Troponin: < or = to 1x normal limit Heart score: 5
--- OUTSIDE RECORDS SUMMARY | 2025-07-28 12:30 | XMS_ITS | Encounter Summary ---
Author Organization [facility] - [facility] Address [address] [place] [address] Care Team Providers Care Microfilmer Name Role Phone Meliton Lincoln MD Primary Care Provider [phone] Vandana Shah MD Unavailable Unavailab le Meliton Lincoln MD Unavailable [phone] Encounter Details Date Type Department Care Team (Late st Contact Info) Description 01/26/2023 Prep for Procedure [facility] Medical [facility]pecial[facility] [place] [address] [place] [address] Jarad Royal MD [address] [facility] [address] [place] [address] Social History Tobacco Use Types Packs/Day Years [...] Assessment Author Status No 09/16/2020 8:48 PM PRINTING SUPPLIES SALES REPRESENTATIVE Activ e * RETIRED Are you blind or do you have serious difficulty seeing, even when wearing glasses? Answer Date of Assessment Author Status No 09/16/2020 8:48 PM PRINTING SUPPLIES SALES REPRESENTATIVE Activ e * Do you have serious [...] Author Status No 09/16/2020 8:48 PM Katlin Parekh, DULCE Active documented in this encounter Plan of Treatment Not on file documented as of this encounter Visit Diagnoses Diagnosis Mammary hypoplasia- Primary Hypoplasia of breast Encounter for cosmetic surgery Other plastic surgery for unacceptable cosmetic appearance documented in this encounter Care Teams Microfilmer Relationship Specialty Start Date End Date Meliton Lincoln MD [address], [place] PCP - General INTERNAL MEDICINE 11/12/17 Meliton Lincoln MD [address], [place] PCP - Med Group - [facility] Attributed Provider 12/05/19 Vandana Shah MD [address] [place] [address] CARDIOVASCULAR DISEASE 11/12/17 documented as of this encounter
--- OUTSIDE RECORDS SUMMARY | 2025-07-28 12:30 | XMS_ITS | Encounter Summary ---
Author Organization [facility] Address [address] [place] [address] Care Team Providers Care Rabbit Fancier Name Role Phone Meliton Lincoln MD Primary Care Provider [phone] Vandana Shah MD Unavailable Unavailab le Meliton Lincoln MD Unavailable [phone] Meliton Lincoln MD Unavailable [phone] Encounter Details Date Type Department Care Team (Late st Contact Info) Description 01/28/[address] [facility] Conversion [address] [facility] [place], [place] [address] , Generic Conversion, Social History Tobacco Use [...] Rule Out 09/13/2020 09/13/2020 09/14/2020 4:41 PM CENTRAL SUPPLY TECHNICIAN SUPERVISOR COVID-19 Rule Out 07/18/2022 07/18/2022 07/18/2022 11:44 AM CENTRAL SUPPLY TECHNICIAN SUPERVISOR Influenza - Seasonal 07/18/2022 07/18/202208/25/ 023 12:34 AM CENTRAL SUPPLY TECHNICIAN SUPERVISOR documented as of this encounter Care Teams Rabbit Fancier Relationship Specialty Start Date End Date Meliton Lincoln MD [address], [place] PCP - General INTERNAL MEDICINE 11/12/17 Meliton Lincoln MD [address], [place] PCP - Med Group - [facility] Attributed Provider 06/10/19 11/05/19 Meliton Lincoln MD [address], [place] PCP - Med Group - [facility] Attributed Provider 12/05/19 Vandana Shah MD [address], [place] CARDIOVASCULAR DISEASE 11/12/17 documented as of this encounter
--- OUTSIDE RECORDS SUMMARY | 2025-07-28 12:30 | XMS_ITS | Clinical Summary ---
Author Organization [facility] Address [address] [place] [address] Care Team Providers Care Marine Engine Machinist Name Role Phone Yoel Lincoln MD Primary Care Provider [phone] Vandana Shah MD Unavailable Unavailab le Yoel Lincoln MD Unavailable [phone] Allergies Active Allergy Reactions Criticality Noted Date Comments Penicillins Rash Low 08/31/2020 Medications ALPRAZolam 0.5 MG tablet Take 1 tablet (0.5 mg total) by mouth daily as needed for Anxiety. 04/21/20 20 Active atorvastatin 10 MG tabletIndications:Hy perlipidemia Take 1 tablet (10 mg total) by mouth daily. Indications: High Amount of Fats in the Blood 07/23/20 20 Active esomeprazole 40 MG capsuleIndications:N onerosive Gastroesophageal Reflux Disease Take 1 capsule (40 mg total) by mouth daily. Indications: Nonerosive GERD 07/23/20 20 Active olmesartan 20 MG tabletIndications:Hy pertension Take 1 tablet (20 mg total) by mouth daily. Indications: High Blood Pressure Disorder 07/23/20 20 Active Biotin w/ Vitamins C & E (HAIR/SKIN/NAILS OR)Indications:suppl ement Take 1 tablet by mouth daily. Indications: supplement Active Bioflavonoid Products (BIOFLEX OR)Indications:suppl ement Take 1 tablet by mouth daily. Indications: supplement Active NON FORMULARYIndications :supplement Take 1 tablet by mouth daily. Indications: supplement Airborne Active Multiple Vitamin (MULTIVITAMIN ADULT OR)Indications:suppl ement Take 1 tablet by mouth daily. Indications: supplement Active Zinc Sulfate (ZINC-220 OR)Indications:suppl ement Take 1 tablet by mouth daily. Indications: supplement Active celecoxib 200 MG capsuleIndications:A rthritis Take 1 capsule (200 mg total) by mouth daily. Indications: Arthritis 09/20/19 21 Active albuterol sulfate HFA 108 (90 Base) MCG/ACT inhaler Inhale 2 puffs into the lungs every 4 (four) hours as needed for Shortness of breath. 10/01/19 22 Active buPROPion XL (WELLBUTRIN XL) 150 MG 24 hr tabletIndications:De pression Take 1 tablet (150 mg total) by mouth every morning. Indications: Depression 06/06/20 22 Active Apoaequorin (PREVAGEN) 10 MG CapIndications:suppl ement Take 1 capsule by mouth daily. Indications: supplement Active Elderberry 500 MG CapIndications:suppl ement Take 1 capsule by mouth daily. Indications: supplement Active Cyanocobalamin (VITAMIN B-12) 5000 MCG SL TabIndications:suppl ement Place 1 tablet under the tongue daily. Indications: supplement Active semaglutide (OZEMPIC) 2 mg/dose injection (PEN) Inject 2 mg into the skin once a week. Active HYDROcodone-acetamin ophen (NORCO) 5-325 MG tabletIndications:Ac grindstone Pain < 3 Day Supply Take 1-2 tablets by mouth every 4 (four) hours as needed for Pain. 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 Overview (01/29/2023): Added automatically from request for surgery [id number] Encounter for cosmetic surgery 01/29/2023 Overview (01/29/2023): Added automatically from request for surgery [id number] Right kidney stone 09/16/2020 Nephrolithiasis 09/16/2020 Resolved Problems Problem Noted Date Diagnosed Date Resolved Date Basal cell carcinoma of scal p and skin of neck 08/15/2022 08/23/2022 Overview (08/15/2022): Added automatically from request for surgery [id number] Family History Medical History Relation Comments Colon [...] Wellness Visit 2017 Dexa Scan (General) 2017 PHQ-2 (Physician Ione) 08/06/2024 Mammogram Screening 01/31/2025 01/31/2023 COVID-19 Vaccine (2024-2 6 season) 2025 07/22/2021, 11/09/2020, 10/12/2020 Influenza Adult (#1) 2025 05/06/2014 RSV Immunization or 60+ Years (1 - 1-dose 75+ series) 2027 Hepatitis A Vaccines Aged Out No long er eligible based on patient's age to complete this topic Meningococcal B Vaccine Aged Out No l onger eligible based on patient's age to complete this topic Meningococcal Vaccine Aged Out No truong negrita eligible based on patient's age to complete this topic RSV Immunizations Under 20 Months Aged Out No longer eligible b ased on patient's age to complete this topic Medical Devices Implanted Type Area Maintenance Helper Device Identifier Shelf Expiration Date Model / Serial / Lot Stent Ureteral [place] Sci Contour Vl 6fr X 22-30cm - [id number] Implanted:Qty: 1 on 09/16/2020 by Yogi Woods MD at [facility] Stent [employer] [employer] JUVENC[employer] 05/28/2023 [id number] / / [id number] Total Knee Replacement Michael Iol Explanted Type Area Maintenance Helper Device Identifier Shelf Expiration Date Model / Serial / Lot Urinary Stent Explanted:Qty: 1 on 09/16/2020 at [facility] Procedures Procedure Name Priority Date/Time Associated [...] Most Recently Relevant to Health Maintenance Insurance [facility] [id number] MEDICARE Advance Directives * Full Code (Latest Code Status on File) Date Activated Date Inactivated Comments 09/16/2020 6:50 PM 09/17/2020 1:13 PM Care Teams Marine Engine Machinist Relationship Specialty Start Date End Date Yoel Lincoln MD [address] [place] [address] PCP - General INTERNAL MEDICINE 11/12/17 Yoel Lincoln MD [address] [place] [address] PCP - Med Group - [facility] Attributed Provider 12/05/19 Vandana Shah MD [address] [place] [address] CARDIOVASCULAR DISEASE 11/12/17
--- OUTSIDE RECORDS SUMMARY | 2025-07-28 12:30 | XMS_ITS | Clinical Summary ---
Author Organization [facility] Address [address] [place] [address] Care Team Providers Care Dross Puller Name Role Phone Meliton Lincoln MD Primary Care Provider [phone] Allergies Active Allergy Reactions Criticality Noted Date [...] on file Legal Sex Female 10:29 PM BUSINESS ANALYSIS SPECIALIST Gender Identity Not on file Sexual Orientation Not on file Last Filed Vital Signs Vital Sign Reading Time Taken Comments Blood Pressure 128/79 02/19/2024 10:10 AM CDT Pulse 71 02/19/2024 10:10 AM CDT Temperature 36.6 C (97.8 F) 02/19/2024 10:10 AM CDT Respiratory Rate 21 08/07/2023 2:40 PM BUSINESS ANALYSIS SPECIALIST Oxygen Saturation 95% 02/19/2024 10:10 AM CDT [...] Influenza Vaccine (#1) 2025 07/15/2022, 2013 Insurance [facility] MEDICARE UHC MEDICARE ADVANTAGE [employer] MEDICARE [facility] MEDIC[facility] Address: [address] [place] [address] Care Teams Dross Puller Relationship Specialty Start Date End Date Meliton Lincoln MD [address] [place], [place] [address] PCP - General Internal Medicine 08/23/23
--- OUTSIDE RECORDS SUMMARY | 2025-07-28 12:30 | XMS_ITS | Encounter Summary ---
Author Organization [facility] Address [address] [place] [address] Care Team Providers Care Harvest Worker Fruit Name Role Phone Meliton Lincoln MD Primary Care Provider [phone] Vandana Shah MD Unavailable Unavailab le Meliton Lincoln MD Unavailable [phone] Meliton Lincoln MD Unavailable [phone] Encounter Details Date Type Department Care Team (Late st Contact Info) Description 01/11/[address] [facility] Conversion [address] [facility] [place] [address] , Generic Conversion, Social History Tobacco Use [...] Rule Out 09/13/2020 09/13/2020 09/14/2020 4:41 PM SHIP WIRER COVID-19 Rule Out 07/18/2022 07/18/2022 07/18/2022 11:44 AM SHIP WIRER Influenza - Seasonal 07/18/2022 07/18/202208/25/ 023 12:34 AM SHIP WIRER documented as of this encounter Care Teams Harvest Worker Fruit Relationship Specialty Start Date End Date Meliton Lincoln MD [address] [place], [place] PCP - General INTERNAL MEDICINE 11/12/17 Meliton Lincoln MD [address] [place], [place] PCP - Med Group - [facility] Attributed Provider 06/10/19 11/05/19 Meliton Lincoln MD [address] [place], [place] PCP - Med Group - [facility] Attributed Provider 12/05/19 Vandana Shah MD [address] [place], [place] CARDIOVASCULAR DISEASE 11/12/17 documented as of this encounter
[2025-07-28] MEDS: LORazepam (*CRX) 1 MG TABLET PO (13:37)
[2025-07-28] MEDS: METOPROLOL TARTRATE 25 MG TABLET PO (13:37)
[2025-07-28 14:41] LABS: Troponin I < 0.012 ng/mL (0.000-0.034)
--- NOTE | 2025-07-28 18:11 | WPCEDHO ---
ED Hand Off Checklist All vitals saved:yes IV Site documented:yes All med administrations documented:yes Triage Note Triage Note pt to ED from home for c/o chest 07/28/25 12:24 pain. pt says this started lightly last night and woke up this AM and it was worse. pt says now it radiates to her L arm and under her L breast. pt did take 2 full strength aspirins today. pt also c/o anxiety and took an Xanax this morning at 10. Allergies Penicillins Allergy (Verified 07/28/25 10:22) Rash Administered/Completed Medications Discontinued Medications Aspirin (Aspirin 81 Mg Chewable Tablet) 324 mg PO ONCE STA Stop: 07/28/25 10:22 Last Admin: 07/28/25 13:36 Dose: Not Given Documented By: ANT Non-Admin Reason: No Dose Required Lorazepam (Lorazepam (*Crx) 1 Mg Tablet) 1 mg PO ONCE STA Stop: 07/28/25 13:25 Last Admin: 07/28/25 13:37 Dose: 1 mg Documented By: ANT Metoprolol Tartrate (Metoprolol Tartrate 25 Mg Tablet) 25 mg PO ONCE STA Stop: 07/28/25 13:25 Last Admin: 07/28/25 13:37 Dose: 25 mg Documented By: ANT Interventions/Assessments IV / Saline Lock, Insert Start: 07/28/25 10:21 Freq: STAT Status: Active Protocol: Document 07/28/25 13:29 ANT (Rec: 07/28/25 13:29 ANT [id number]) IV Assessment Peripheral Access Right Antecubital IV Catheter Access Initiated IV Insertion Date 07/28/25 IV Insertion Time 13:29 Catheter Gauge 20 IV Site Assessment WNL IV Care and WNL Maintenance PA: Cardiovascular Assessment Start: 07/28/25 10:21 Freq: Status: Active Protocol: Document 07/28/25 12:26 ANT (Rec: 07/28/25 12:27 ANT [id number]) Cardiovascular Assessment Cardiovascular Chest Pain Symptoms Skin Description Normal Color Jugular Vein None Distention PA: Respiratory Assessment Start: 07/28/25 10:21 Freq: Status: Active Protocol: Document 07/28/25 12:26 ANT (Rec: 07/28/25 12:27 ANT [id number]) Respiratory Assessment Symptoms None Effort Normal Pattern Regular Depth Normal Chest Expansion Symmetrical Cough Description None Sputum Amount None Cough Reflex Present Oxygen Delivery Oxygen Delivery Room Air Pulse Oximetry (90- 98 100) Last Vital Signs Temperature 97.8 F 07/28/25 10:23 Pulse Rate 56 L 07/28/25 18:07 Respiratory Rate 22 H 07/28/25 18:07 Pulse Oximetry 97 07/28/25 18:07 Blood Pressure 121/76 07/28/25 18:07 Blood Pressure Mean 91 07/28/25 18:07 Blood Pressure Position Sitting 07/28/25 10:23 Oxygen Delivery Room Air 07/28/25 12:26 Weight 102.7 kg 07/28/25 12:24 Last Result - Abnormals Only MPV 11.0 fl (7.4-10.4) H 07/28/25 10:31 Eos % (Auto) 6.0 % (0-4.4) H 07/28/25 10:31 Eos # (Auto) 0.4 K/mm3 (0-0.3) H 07/28/25 10:31 Chloride 108 mmol/L (98-107) H 07/28/25 10:31 BUN 18 mg/dL (7-17) H 07/28/25 10:31 Glucose 138 mg/dL (65-110) H 07/28/25 10:31 Most Recent Suicide Severity Rating Suicide Severity Rating NO RISK INDICATED 07/28/25 12:24
--- NOTE | 2025-07-28 18:11 | PC.NURSE ---
Family readjusted blood pressure cuff, the elevated BP was inaccurate.
--- NOTE | 2025-07-28 19:00 | ADMGEN ---
This patient, Dottie Damon, was admitted to IMU Room 213-01. Patient/family oriented to hospital policies and general routines including ID bracelet, bed and alarms, visiting hours, pain management, procedures, bathroom and other care routines, personal items, smoking policy, room service/diet, and visiting hours. Information on how to activate the Rapid Response Team has been discussed. Patient/Family are encouraged to report perceived risks to care and to ask questions if they do not understand what they are told or what they should do.
[2025-07-28] MEDS: MELATONIN 5 MG TABLET PO (20:32)
[2025-07-28 21:05] LABS: Troponin I < 0.012 ng/mL (0.000-0.034)
[2025-07-28] MEDS: ACETAMINOPHEN 325 MG TABLET 650 MG PO (22:55)
[2025-07-28] MEDS: ALPRAZolam (*CRX) 0.5 MG TABLET PO (22:56)
[2025-07-29] VITALS: PULSE 62
[2025-07-29 02:00] VITALS: PULSE 64
[2025-07-29 04:00] VITALS: PULSE 58
[2025-07-29 05:38] VITALS: BP 136/69; PULSE 58; RESP 14; TEMP 36.7; O2SAT 95
[2025-07-29 06:00] VITALS: PULSE 53
[2025-07-29 07:52] VITALS: BP 151/66; PULSE 54; RESP 16; TEMP 36.4; O2SAT 96
--- NOTE | 2025-07-29 08:24 | PM.SD2 ---
Same Day Admit/Disch: HPI History of Present Illness Chief complaint: Chest pain Narrative: Dottie Damon is a 75 year old female with a past medical history of obesity, untreated obstructive sleep apnea anxiety, hypertension, hyperlipidemia who presented to the ER with chest pain. Patient reports that she has been under extra stress at home her son is currently going through a divorce in his is left him recently. The patient's daughter is also is acutely ill. She thinks that the stress caused her to develop some chest pain. She stated that she was lying in bed on the night of the and started to feel weird in her chest. She reported that that she was having light pain in her chest that would last for a few sec her a minute in the left chest. It was not accompanied by any shortness of breath, cough, congestion fevers or chills. The next morning she noticed that the pain was still coming and going and would last for brief sec in a little bit later in the morning she developed some discomfort into her left shoulder. The pain did not really go down her arm. She had never had any pain like this before. She had had a prior stress test about 5 years ago that was negative. She denies any lower extremity swelling orthopnea or paroxysmal nocturnal dyspnea. She does have untreated obstructive sleep apnea because she states that she could not keep the CPAP on in her sleep. 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 Gruber History of bilateral knee replacement History of colonoscopy last performed approximately 2001 History of genitourinary surgical procedure lift with Dr Parson Family History Family History Father Heart disease Cerebrovascular accident Mother Hypertension Social History Social History (Updated 07/29/25 @ 08:50 by Nhung Lockwood DO) Social History: She is and lives alone. She has 1 daughter and 1 son. Code status: Full code Surrogate decision maker: Markos (son) Smoking status: Never smoker Second hand tobacco smoke exposure: No Alcohol intake: current Drinks per week: 1 Substance use: current Substance use type: marijuana Other substance usage details: nightly Last use: 07/28/25 Lack of Transportation: No Lack of Food: Never True Current Housing: I Have Housing Concerned About Future Housing: No Difficulty Paying Gas/Electric Bills: No Difficulty Paying for Meds: No Currently Unemployed: No Education: Associate Degree Difficulty w/ Childcare or Family Care: No Living arrangements: alone Spiritual care concerns: No Same Day Admit/Disch: Med Pre-admit Medications Home Medications ?Medication ?Instructions ?Recorded ?Confirmed ?Type alprazolam 0.5 mg tablet 0.5 mg PO BID PRN anxiety 11/08/24 07/28/25 History atorvastatin 10 mg tablet 10 mg PO DAILY 11/08/24 07/28/25 History bupropion HCl 150 mg 24 hr tablet, 150 mg PO DAILY 11/08/24 07/28/25 History extended release celecoxib 200 mg capsule 200 mg PO DAILY 11/08/24 07/28/25 History esomeprazole magnesium 40 mg 40 mg PO DAILY 11/08/24 07/28/25 History capsule,delayed release olmesartan 20 mg tablet 20 mg PO DAILY 11/08/24 07/28/25 History ascorbic acid (vitamin C) 500 mg 500 mg PO DAILY 02/03/25 07/28/25 History capsule cholecalciferol (vitamin D3) 25 25 mcg PO DAILY 02/03/25 07/28/25 History mcg (1,000 unit) capsule (Vitamin D3) cyanocobalamin (vitamin B-12) 1,000 mcg PO DAILY 02/03/25 07/28/25 History 1,000 mcg capsule elderberry fruit 200 mg capsule 200 mg PO DAILY 02/03/25 07/28/25 History fexofenadine 180 mg tablet 180 mg PO DAILY 02/03/25 07/28/25 History (Misa Allergy) magnesium 500 mg tablet 500 mg PO DAILY 02/03/25 07/28/25 History wivbmejw-sxdg-urgr 8 mg-folic 400 1 tablet PO DAILY 02/03/25 07/28/25 History mcg-K 50 mcg-lutein 300 mcg tablet (Century Women 50 Plus) zinc 50 mg tablet 50 mg PO DAILY 02/03/25 07/28/25 History aspirin 81 mg chewable tablet 81 mg PO DAILY@0800 30 days #30 07/29/25 Rx (Children's Aspirin) tabs Review of Systems Review of Systems 12 systems were reviewed with pertinent positives and negatives per HPI. Except as documented in the HPI, all other systems were reviewed and are negative. Exam Narrative: Weight 104.2 kg BMI 38.2 Const: Other: No acute distress, obese HENMT: Other: Mucous membranes are moist, no oral pharyngeal erythema, crowded posterior oropharynx Eyes: Other: Pupils are equal and reactive, no scleral icterus, no conjunctival pallor Neck: Other: No lymphadenopathy, no JVD, large neck circumference Chest: Other: No reproducible chest pain Resp: Other: Clear to auscultation bilaterally, no increased work of breathing Cardio: Other: Regular rate, regular rhythm, 2+ bilateral radial and pedal pulses GI: Other: Soft, nontender, nondistended, positive bowel sounds Skin: Other: No jaundice, no pallor Neuro: Other: Alert oriented, speech is clear, facial asymmetry, no localizing neurologic deficits noted during conversation Extrem: Other: No clubbing, cyanosis or edema Psych: Other: Appropriate mood and affect, pleasant and cooperative DS: Data Data Completed and Pending Labs on day of discharge: Labs from last 24 hours 07/28/25 07/28/25 07/28/25 20:38 13:27 10:31 WBC 6.2 RBC 4.56 Hgb 13.8 Hct 41.7 MCV 91.4 MCH 30.3 MCHC 33.1 RDW 13.1 Plt Count 218 MPV 11.0 H Immature Gran % (Auto) 0.2 Neut % (Auto) 60.6 Lymph % (Auto) 23.8 Iron % (Auto) 8.4 Eos % (Auto) 6.0 H Baso % (Auto) 1.0 Lymph # (Auto) 1.47 Iron # (Auto) 0.5 Eos # (Auto) 0.4 H Baso # (Auto) 0.1 Abs Immat Gran (auto) 0.01 Absolute Neuts (auto) 3.8 Absolute Nucleated RBC 0.000 Nucleated RBC % 0.0 PT 13.0 INR 1.0 APTT 25.0 Sodium 140 Potassium 3.8 Chloride 108 H Carbon Dioxide 25 Anion Gap 7 BUN 18 H Creatinine 0.76 Estim Creat Clear Calc 68 Estimated GFR > 60 Glucose 138 H Calcium 9.2 Total Bilirubin 0.5 AST 30 ALT 22 Alkaline Phosphatase 80 Troponin I < 0.012 < 0.012 < 0.012 Total Protein 7.0 Albumin 4.0 Lipase 106 Impressions Chest X-Ray 07/28/25 11:25 IMPRESSION: 1. No acute cardiopulmonary disease. 2. Small hiatal hernia. EKG:Test Date: 2025-07-28 10:27:27 Measurements Intervals [place] Rate: 64 P: 35 LA: 166 QRS: 9 QRSD: 97 T: 12 QT: 390 QTc: 403 Interpretive Statements SINUS RHYTHM CONSIDER INFERIOR INFARCT, AGE INDETERMINATE BASELINE ARTIFACT- I, II, III, AVR, AVL, AVF ABNORMAL ECG Compared to ECG 02/05/2025 16:45:43 No significant changes DS: Summary Hospital Course Reason for hospitalization: Chest pain Hospital Course: The patient was admitted for chest pain rule out. Patient had 3 sets of negative cardiac enzymes. Patient was monitored in the IMU on telemetry overnight with no evidence of arrhythmia. She had no recurrence of chest pain. Chest pain was atypical in nature. Cardiac chest pain less likely. Status at Discharge Cognitive/behavioral status at discharge: Normal baseline Functional status at discharge: independent ambulation Overall status at discharge: patient is back to baseline Time Spent with Patient Time attestation: Total time spent providing and/or coordinating discharge services: 35 minutes Time spent: Greater than 30 minutes Specific discharge activities: Activity as tolerated DS: Admitting Diagnosis Discharge Date 07/29/2025 Admitting Diagnosis Chest pain DS: Discharge Diagnosis Discharge Diagnosis (1) Chest pain: Qualifiers: Chest pain type: unspecified Qualified Code(s): R07.9 - Chest pain, unspecified Code(s): R07.9 - Chest pain, unspecified Status: Acute (2) Anxiety: Code(s): F41.9 - Anxiety disorder, unspecified Status: Acute (3) Hypertension: Qualifiers: Hypertension type: primary hypertension Qualified Code(s): I10 - Essential (primary) hypertension Code(s): I10 - Essential (primary) hypertension Status: Acute Plan Patient will be discharged home with continuing her home medications including Xanax, atorvastatin, and angiotensin receptor elias. The patient does have essential hypertension and blood pressures were stable throughout the hospitalization. Cardiac ischemia ruled out with 3 sets of negative troponins. Follow-up with primary care physician in 1-2 weeks. Discharge Plan Discharge Attending physician on discharge: Nhung Lockwood Discharging Clinician: Nhung Lockwood Anticipated Discharge Date/Time: 07/29/25 08:25 Patient Disposition: Home Activity: as tolerated Diet: heart healthy Discharge Instructions: You had atypical chest pain. Your heart enzymes did not indicate evidence of heart attack. Your pain could have been due to anxiety. You do have risk factors for [place] including untreated obstructive sleep apnea, hypertension and hyperlipidemia. You may benefit from an outpatient stress test. This is something that you can discuss with your primary care physician. Please follow up with the primary care physician in 1-2 weeks. Call your physician after the holiday to arrange a follow-up appointment. Start 81 mg aspirin daily. Call an ambulance Ambulance and or return to the nearest hospital or call your primary care physician if develop palpitations, heart racing, passing out, severe or persistent chest pain, shortness of breath or are otherwise concerned. Patient Instructions: Chest Pain (DC) Patient Language: Occitan Stand Alone Forms: General Discharge Information Follow-up/Referrals: PHYSICIAN NOT ON STAFF,NONSTAFF [Primary Care Provider] Discharge Medications: New aspirin [Children's Aspirin] 81 mg Tablet,Chewable 81 mg PO DAILY@0800 30 Days Qty: 30 0RF Continued celecoxib 200 mg capsule 200 mg PO DAILY atorvastatin 10 mg tablet 10 mg PO DAILY alprazolam 0.5 mg tablet 0.5 mg PO BID PRN (Reason: anxiety) esomeprazole magnesium 40 mg capsule,delayed release(DR/EC) 40 mg PO DAILY olmesartan 20 mg tablet 20 mg PO DAILY bupropion HCl 150 mg tablet extended release 24 hr 150 mg PO DAILY fexofenadine [Misa Allergy] 180 mg tablet 180 mg PO DAILY Century Women 50 Plus 8 mg iron-400 mcg-50 mcg tablet 1 tablet PO DAILY cyanocobalamin (vitamin B-12) 1,000 mcg capsule 1,000 mcg PO DAILY cholecalciferol (vitamin D3) [Vitamin D3] 25 mcg (1,000 unit) capsule 25 mcg PO DAILY ascorbic acid (vitamin C) 500 mg capsule 500 mg PO DAILY elderberry fruit 200 mg capsule 200 mg PO DAILY zinc 50 mg tablet 50 mg PO DAILY magnesium 500 mg tablet 500 mg PO DAILY Date of admission: 12/23/25 13:50 Primary Care Provider: PHYSICIAN NOT ON STAFF,NONSTAFF Admitting Provider: Karthik Jimenez Attending physician on admission: Karthik Jimenez Condition: Stable Quality If No VTE Prophylaxis Answer both mechanical and pharmacologic: Reason no mechanical VTE proph: low risk/not indicated Reason no pharmacologic proph: low risk/not indicated Hospitalist MIPS Advance Care Plan I have confirmed that the patient's Advanced Care Plan is present, code status is documented, or surrogate decision maker is listed in patient medical record.: Yes Medication Reconciliation I have utilized all available resources to obtain, update and review the patients current medications (includes all prescriptions, OTC, herbals, cannabis, and nutritional supplements).: Yes Heart Failure (Exclusion) Patient has history of Heart Transplant or Left Ventricular Assistive Device?: No IF YES, STOP HERE Heart Failure (Qualifier) Patient has current or prior documentation of LVEF less than or equal to 40%, or mod/servere depressed LVSF?: No IF NO, STOP HERE
[2025-07-29] MEDS: OLMESARTAN MEDOXOMIL 20 MG TABLET PO (08:32)
[2025-07-29] MEDS: CELECOXIB 200 MG CAPSULE PO (08:32)
[2025-07-29] MEDS: buPROPion HCL XL (24 HR) 150 MG TABCR PO (08:32)
[2025-07-29] MEDS: CYANOCOBALAMIN 1,000 MCG TABLET 1000 MCG PO (08:32)
[2025-07-29] MEDS: PANTOPRAZOLE 40 MG TABLET PO (08:32)
[2025-07-29] MEDS: MAGNESIUM OXIDE 400 MG TABLET PO (08:32)
[2025-07-29] MEDS: THERAPEUTIC MULTIVITAMINS/MINERALS TAB (*BKC) 1 TABLET PO (08:32)
[2025-07-29] MEDS: CHOLECALCIFEROL (VITAMIN D3) 25 MCG (1,000 UNITS) TABLET PO (08:32)
[2025-07-29] MEDS: ATORVASTATIN 10 MG TABLET PO (08:32)
[2025-07-29] MEDS: LORATADINE 10 MG TABLET PO (08:32)
[2025-07-29] MEDS: ASPIRIN 81 MG CHEWABLE TABLET PO (08:33)
--- NOTE | 2025-07-29 10:26 | PC.NURSE ---
Patient discharged home via personal vehicle. Denies chest pain or discomfort. staff mine warfare officer removed and IV access removed intact. Reviewed all discharge instructions with patient and verbalizes understanding. No acute distress noted.
== END 2025-07-29 09:40 | disposition home or self-care (01) ==
LOC: ANHED 13:25 → ANHIMU 07-29 08:32
PROVIDERS: Emergency Medicine; Admitting Provider Internal Medicine; Emergency Provider Emergency Medicine; Visit Provider Internal Medicine
DX: R07.9 Chest pain, unspecified (principal); F41.9 Anxiety disorder, unspecified; R94.31 Abnormal electrocardiogram [ECG] [EKG]; K21.9 Gastro-esophageal reflux disease without esophagitis; K44.9 Diaphragmatic hernia without obstruction or gangrene; I10 Essential (primary) hypertension; G47.33 Obstructive sleep apnea (adult) (pediatric); F12.90 Cannabis use, unspecified, uncomplicated; Z87.442 Personal history of urinary calculi; Z87.19 Personal history of other diseases of the digestive system; Z96.653 Presence of artificial knee joint, bilateral; Z87.448 Personal history of other diseases of urinary system; Z79.1 Long term (current) use of non-steroidal anti-inflammatories (NSAID); Z82.49 Family history of ischemic heart disease and other diseases of the circulatory system; Z82.3 Family history of stroke
CPT/HCPCS: 36415; 71046; 80053; 83690; 84484; 85025; 85610; 85730; 93005; 99285; A9270; G0378